=== PATIENT | female | born 1940 | race Caucasian/White ===

== ENCOUNTER 2017-12-11 11:14 | Outpatient (REF) | payer MEDICARE, OTHER, SELFPAY ==
[2017-12-11 11:52] LABS: Hemoglobin A1C 8.6 % (4.5-6.2)
== END 2017-12-11 11:15 ==
LOC: LBN 11:14
PROVIDERS: PCP Family Medicine; Visit Provider Family Medicine
DX: E11.40 Type 2 diabetes mellitus with diabetic neuropathy, unspecified (principal)
CPT/HCPCS: 83036

== ENCOUNTER 2018-02-19 15:57 | Outpatient (REF) | payer MEDICARE, OTHER, SELFPAY | END 2018-02-19 16:17 | LOC: LBN 15:57 | PROVIDERS: PCP Family Medicine; Visit Provider Family Medicine | DX: R19.7 Diarrhea, unspecified (principal) | CPT/HCPCS: 87324 ==

== ENCOUNTER 2018-07-14 08:40 | Outpatient (REF) | payer MEDICARE, OTHER, SELFPAY ==
[2018-07-14 11:06] LABS: Hemoglobin A1C 7.3 % (4.5-6.2)
== END 2018-07-14 09:00 ==
LOC: LBN 08:40
PROVIDERS: PCP Family Medicine; Visit Provider Family Medicine
DX: E11.40 Type 2 diabetes mellitus with diabetic neuropathy, unspecified (principal)
CPT/HCPCS: 83036

== ENCOUNTER 2019-01-18 10:30 | Outpatient (REF) | payer MEDICARE, OTHER, MEDICAID, SELFPAY ==
[2019-01-18 12:49] LABS: Hemoglobin A1C 7.3 % (4.5-6.2)
== END 2019-01-18 10:50 ==
LOC: LBN 10:30
PROVIDERS: Referring Provider Nurse Practitioner Gerontology; Visit Provider Family Medicine
DX: E11.9 Type 2 diabetes mellitus without complications (principal)
CPT/HCPCS: 83036

== ENCOUNTER 2019-06-13 10:58 | Outpatient (REF) | payer MEDICARE, OTHER, MEDICAID, SELFPAY ==
[2019-06-13 12:41] LABS: ALT 25 U/L (14-59); AST 17 U/L (15-37); Albumin 3.2 g/dL (3.4-5.0); Alkaline Phosphatase 65 U/L (46-116); BUN 16 mg/dL (7-18); Bilirubin, Total 0.3 mg/dL (0.2-1.0); CREATININE 0.66 mg/dL (0.55-1.02); Calcium 9.4 mg/dL (8.5-10.1); Chloride 105 mmol/L (98-107); Glucose 107 mg/dL (74-106); Potassium 4.7 mmol/L (3.5-5.1); Sodium 142 mmol/L (136-145); Total Protein 6.3 g/dL (6.4-8.2)
[2019-06-13 12:42] LABS: Absolute Basophil Count 0.05 k/cumm (0.0-0.2); Absolute Eosinophil Count 0.21 k/cumm (0.0-0.7); Absolute Lymphocyte Count 1.93 k/cumm (1.2-3.4); Absolute Monocyte Count 0.48 k/cumm (0.11-0.7); Absolute Neutrophil Count 3.58 k/cumm (1.2-6.7); Basophils % 0.8; Eosinophils % 3.4; HCT 39.1 % (36.0-46.0); HGB 12.3 g/dL (12.0-15.5); Lymphocytes % 30.9; Mean Corp. HGB Concentration 31.5 g/dL (32.0-36.0); Mean Corpuscular Hemoglobin 27.3 pg (27.0-33.0); Mean Corpuscular Volume 86.7 fL (80-95); Mean Platelet Volume 11.3 fL (8.0-11.0); Monocytes % 7.7; Neutrophils % 57.2; Platelet Count 374 x1000/uL (130-400); RBC 4.51 m/cumm (4.00-5.20); RBC Distribution Width 15.5 % (11.7-14.6); White Blood Cell Count 6.25 k/cumm (4.4-10.8)
[2019-06-13 13:47] LABS: Hemoglobin A1C 6.8 % (3.8-5.6)
== END 2019-06-13 11:18 ==
LOC: LBN 10:58
PROVIDERS: PCP Family Medicine; Visit Provider Family Medicine
DX: I10 Essential (primary) hypertension (principal); E11.40 Type 2 diabetes mellitus with diabetic neuropathy, unspecified; R53.83 Other fatigue
CPT/HCPCS: 80053; 83036; 85025

== ENCOUNTER 2020-02-22 14:17 | Outpatient (REF) | payer MEDICARE, OTHER, MEDICAID, SELFPAY ==
[2020-02-22 15:23] LABS: Abs Immature Grans 0.07 10^3/uL (0.0-0.06); Absolute Basophil Count 0.03 10^3/uL (0.0-0.2); Absolute Eosinophil Count 0.03 10^3/uL (0.0-0.7); Absolute Monocyte Count 1.17 10^3/uL (0.1-0.8); Basophils % 0.2; Eosinophils % 0.2; HCT 38.9 % (36.0-46.0); HGB 11.6 g/dL (11.2-15.7); Immature Grans % 0.5; Lymphocytes % 13.7; MCH 22.9 pg (27.0-33.0); MCHC 29.8 % (32.0-36.0); MCV 76.9 fL (80-95); MPV 11.8 fL (8.0-11.0); Monocytes % 8.8; Neutrophils % 76.6; Nucleated RBC 0 %; Platelet Count 457 10^3/uL (130-400); RBC 5.06 10^6/uL (3.93-5.22); RDW 15.5 % (11.7-14.6); RDW-SD 42.5 fL; WBC 13.25 10^3/uL (4.4-10.8)
[2020-02-22 15:34] LABS: Bilirubin Negative (Negative); Blood Trace-lysed (Negative); Clarity Cloudy (Clear); Glucose 500 mg/dL (Negative); Ketones 40 mg/dL (Negative); Leukocyte Esterase Trace (Negative); Nitrite Negative (Negative); Urobilinogen 0.2 EU/dL (Up TO 0.2); pH 8.5 (5-8)
[2020-02-22 15:43] LABS: C & S Indicated? C&S Done As Ordered
[2020-02-22 15:44] LABS: Absolute Lymphocyte Count 1.82 10^3/uL (1.2-3.4); Absolute Neutrophil Count 10.15 10^3/uL (1.2-6.7)
[2020-02-22 16:16] LABS: ALT 12 U/L (14-59); AST 8 U/L (15-37); Albumin 3.1 g/dL (3.4-5.0); Alkaline Phosphatase 92 U/L (46-116); Anion Gap 13.8 mmol/L (3-11); BUN 35 mg/dL (7-18); Bilirubin, Total 0.4 mg/dL (0.2-1.0); CO2 24.2 mmol/L (21.0-32.0); Calcium 10.2 mg/dL (8.5-10.1); Chloride 105 mmol/L (98-107); Estimated GFR 53.35 (mL/min/1.73m2); Glucose 406 mg/dL (74-106); Potassium 4.4 mmol/L (3.5-5.1); Sodium 143 mmol/L (136-145); TSH (W/Ref FT4) 0.93 uIU/mL (0.36-3.74); Total Protein 7.8 g/dL (6.4-8.2)
[2020-02-22 16:24] LABS: Bacteria Many HPF (Negative); WBC >50 HPF (0-5)
[2020-02-22 16:30] LABS: Hemoglobin A1C 12.1 % (<5.7)
== END 2020-02-22 14:37 ==
LOC: LBN 14:17
PROVIDERS: PCP Family Medicine; Visit Provider Nurse Practitioner Gerontology
DX: E11.9 Type 2 diabetes mellitus without complications (principal); F03.90 Unspecified dementia, unspecified severity, without behavioral disturbance, psychotic disturbance, mood disturbance, and anxiety; R53.83 Other fatigue; E66.01 Morbid (severe) obesity due to excess calories; E03.9 Hypothyroidism, unspecified; R68.89 Other general symptoms and signs; R10.9 Unspecified abdominal pain
CPT/HCPCS: 80053; 87077; 81003; 81015; 83036; 84443; 85025; 87086; 87186

== ENCOUNTER 2020-04-23 16:42 | Outpatient (REF) | payer MEDICARE, OTHER, MEDICAID, SELFPAY ==
[2020-04-23 17:28] LABS: Abs Immature Grans 0.02 10^3/uL (0.0-0.06); Absolute Basophil Count 0.06 10^3/uL (0.0-0.2); Absolute Eosinophil Count 0.21 10^3/uL (0.0-0.7); Absolute Neutrophil Count 5.41 10^3/uL (1.2-6.7); Basophils % 0.8; Eosinophils % 2.7; HCT 37.1 % (36.0-46.0); HGB 11.2 g/dL (11.2-15.7); Immature Grans % 0.3; Lymphocytes % 20.3; MCH 22.3 pg (27.0-33.0); MCHC 30.2 % (32.0-36.0); MCV 73.8 fL (80-95); MPV 11.2 fL (8.0-11.0); Monocytes % 7.6; Neutrophils % 68.3; Nucleated RBC 0 %; Platelet Count 478 10^3/uL (130-400); RBC 5.03 10^6/uL (3.93-5.22); RDW 17.2 % (11.7-14.6); RDW-SD 45.9 fL
[2020-04-23 17:40] LABS: Diff Comment RBC Morph Reviewed
[2020-04-23 17:41] LABS: Microcytosis 1+; Polychromasia Present
[2020-04-23 17:42] LABS: Poikilocytes 1+
[2020-04-23 17:50] LABS: ALT 13 U/L (14-59); AST 11 U/L (15-37); Albumin 3.4 g/dL (3.4-5.0); Alkaline Phosphatase 99 U/L (46-116); Anion Gap 6.2 mmol/L (3-11); BUN 17 mg/dL (7-18); Bilirubin, Total 0.4 mg/dL (0.2-1.0); CO2 28.8 mmol/L (21.0-32.0); CREATININE 0.78 mg/dL (0.55-1.02); Calcium 10.4 mg/dL (8.5-10.1); Chloride 98 mmol/L (98-107); Glucose 271 mg/dL (74-106); Sodium 133 mmol/L (136-145); TSH (W/Ref FT4) 1.32 uIU/mL (0.36-3.74); Total Protein 8.1 g/dL (6.4-8.2)
== END 2020-04-23 17:02 ==
LOC: LBN 16:42
PROVIDERS: PCP Family Medicine; Visit Provider Family Medicine
DX: E11.65 Type 2 diabetes mellitus with hyperglycemia (principal); F20.9 Schizophrenia, unspecified; G31.09 Other frontotemporal neurocognitive disorder; E66.01 Morbid (severe) obesity due to excess calories
CPT/HCPCS: 80053; 84443; 85025

== ENCOUNTER 2021-01-01 18:34 | Outpatient (REF) | payer MEDICARE, OTHER, MEDICAID, SELFPAY ==
[2021-01-01 16:10] LABS: HGB 11.3 g/dL (11.2-15.7); MCH 24.4 pg (27.0-33.0); MCHC 31.4 % (32.0-36.0); MCV 77.6 fL (80-95); MPV 12.5 fL (8.0-11.0); Nucleated RBC 0 %; RBC 4.64 10^6/uL (3.93-5.22); RDW 15.6 % (11.7-14.6); RDW-SD 43.3 fL
[2021-01-01 16:48] LABS: Absolute Lymphocyte Count 1.34 10^3/uL (1.2-3.4); Absolute Monocyte Count 1.72 10^3/uL (0.1-0.8); Absolute Neutrophil Count 16.04 10^3/uL (1.2-6.7); Bands % 14
[2021-01-01 16:49] LABS: Diff Comment Manual Differential; Microcytosis 1+
[2021-01-01 16:50] LABS: Platelet Count 274 10^3/uL (130-400)
[2021-01-01 17:18] LABS: Hemoglobin A1C 13.8 % (<5.7)
[2021-01-01 17:19] LABS: ALT 11 U/L (14-59); AST 8 U/L (15-37); Albumin 2.9 g/dL (3.4-5.0); Alkaline Phosphatase 94 U/L (46-116); Anion Gap 16.7 mmol/L (3-11); BUN 45 mg/dL (7-18); Bilirubin, Total 0.4 mg/dL (0.2-1.0); CO2 22.3 mmol/L (21.0-32.0); CREATININE 1.9 mg/dL (0.55-1.02); Calcium 9.8 mg/dL (8.5-10.1); Chloride 99 mmol/L (98-107); Estimated GFR 25.37 (mL/min/1.73m2); Potassium 4.5 mmol/L (3.5-5.1); Sodium 138 mmol/L (136-145)
[2021-01-01 19:29] LABS: Glucose 574 mg/dL (74-106)
== END 2021-01-01 18:35 | disposition home or self-care (01) ==
LOC: LBN 18:34
PROVIDERS: PCP Family Medicine; Visit Provider Internal Medicine
DX: E11.9 Type 2 diabetes mellitus without complications (principal); R53.83 Other fatigue; R11.2 Nausea with vomiting, unspecified; R68.89 Other general symptoms and signs
CPT/HCPCS: 80053; 83036; 85025

== ENCOUNTER 2021-01-01 20:42 | Inpatient (IN) | payer MEDICARE, OTHER, MEDICAID, SELFPAY ==
[2021-01-01] VITALS (23 sets, daily range): BP systolic 94–130; BP diastolic 54–77; PULSE 100–120; RESP 20–34; TEMP 36.6; O2SAT 93–97
[2021-01-01] MEDS: Normal Saline 1,000 ML 1000 ML IV (20:54)
[2021-01-01 21:06] LABS: BE (Venous) -6 mmol/L (-2-3); HCO3 (Venous) 19 mmol/L (23-28); HCT 36.6 % (36.0-46.0); HGB 11.5 g/dL (11.2-15.7); MCH 24.1 pg (27.0-33.0); MCHC 31.4 % (32.0-36.0); MCV 76.7 fL (80-95); MPV 12.1 fL (8.0-11.0); Nucleated RBC 0 %; O2 Sat (Venous) 97 %; Platelet Count 246 10^3/uL (130-400); RBC 4.77 10^6/uL (3.93-5.22); RDW 15.3 % (11.7-14.6); RDW-SD 42.5 fL; TCO2 (Venous) 17 mmol/L (24-29); WBC 22.54 10^3/uL (4.4-10.8); pCO2 (Venous) 28 mmHg (41-51); pH (Venous) 7.44 (7.31-7.41); pO2 (Venous) 105 mmHg
--- NOTE | 2021-01-01 21:06 | ED.GENADUL_ITS ---
Discharge Plan Disposition Patient Disposition: [facility] INPATIENT Condition: Stable Discharge Details Clinical Impression: BEN (acute kidney injury), Hyperglycemia, Urinary tract infection Primary Care Provider: Yumiko Israel ED Provider: Jaime Garcia Home Meds and New Rx's Prescriptions: No Action sennosides [Senna Laxative] 8.6 MG tablet 8.6 mg PO DAILY RF: 0 acetaminophen 325 MG tablet 650 mg PO TID RF: 0 olanzapine [Zyprexa] 10 MG tablet 5 mg PO BID RF: 0 cholecalciferol (vitamin D3) 1,000 UNITS tablet 1,000 unit PO DAILY RF: 0 metformin 850 MG tablet 850 mg PO BID@0800,1700 RF: 0 morphine 15 MG tablet 7.5 mg PO Q4H PRN PRNQty: 10 RF: 0 enoxaparin [Lovenox] 40 MG/0.4 ML syringe 40 mg Sub-Q Q24H Qty: 28 RF: 0 nitrofurantoin monohyd/m-cryst [Macrobid] 100 MG capsule 100 mg PO BID 5 Days RF: 0 polyethylene glycol 3350 [Miralax] 17 gram/dose Powder 17 g PO Q OTHER DAY RF: 0 Medical Decision Making 80 yo female who has a history of schizoprenia, t2dm, dementia, who comes in from the [facility] with elevated blood sugars. She apparently has intermittent episodes where she won't answer questions. They checked blood sugards today and it was over 500 so she was sent here. No reported fevers, cough, vomit, rashes. She arrives in no distress. She has her eyes open and is moving extremities on her own. She will intermittently follow commands, is able to move all extremities. no signs of trauma and perrl. She did tell me her name is rocio but then won't answer when I ask her year and other questions. She doesn't respond to me when I try and test her sensation. She has no abdomen tenderness, clear lungs. I suspect she may have a uti as she per report is not normally incontinent of urine, will check ua and also obtain vbg and cmp to evaluate for possible dka. labs show ua consistent with uti with wbc of 22 so suspect pyelo, glucose over 500 with anion gap of 18 but no acidosis on venous pH so not in dka and will hold on IV insulin drip, will give 10 units regular insulin IV. She does have ben as well. Given her lab abnormalities and likely pyelo feel she needs admission for IV antibiotics and IV fluids, will discuss with hospitalist Differential Diagnosis Differential Diagnosis: uti, dka, hyperglycemia Medical Records Medical records reviewed: Yes I reviewed the patient's medical records. Lab Data Lab results reviewed: Yes I reviewed the patient's lab results. HPI General Mode of arrival: EMS . Date/Time Provider Initiated Documentation: 01/01/21 20:55 . Limitations to Documentation: other (refuses to answer a lot of questions) . Information obtained by: RN/MD and EMS . History of Present Illness 80 year old F presents to the emergency department with the chief complaint of high blood sugars, described as moderate, Patient started experiencing this day(s) (1) and it has been constant. No relieving factors improve symptom(s), No exacerbating factors reported . Patient did receive the following treatments prior to arrival, none Related Data Home Medications Medication Instructions Recorded Confirmed acetaminophen 650 mg PO TID 03/17/17 01/01/21 cholecalciferol (vitamin D3) 1,000 unit PO DAILY 03/17/17 01/01/21 olanzapine [Zyprexa] 5 mg PO BID 03/17/17 01/01/21 sennosides [Senna Laxative] 8.6 mg PO DAILY 03/17/17 01/01/21 enoxaparin [Lovenox] 40 mg SUB-Q Q24H #28 syr 03/19/17 metformin 850 mg PO BID@0800,1700 tab 03/19/17 01/01/21 morphine 7.5 mg PO Q4H PRN PRN #10 tab 03/19/17 nitrofurantoin monohyd/m-cryst 100 mg PO BID 5 Days cap 03/19/17 [Macrobid] polyethylene glycol 3350 [Miralax] 17 g PO Q OTHER DAY 01/01/21 01/01/21 Previous Rx's Medication Instructions Recorded enoxaparin [Lovenox] 40 mg SUB-Q Q24H #28 syr 03/19/17 metformin 850 mg PO BID@0800,1700 tab 03/19/17 morphine 7.5 mg PO Q4H PRN PRN #10 tab 03/19/17 nitrofurantoin monohyd/m-cryst 100 mg PO BID 5 Days cap 03/19/17 [Macrobid] Allergies Allergy/AdvReac Type Severity Reaction Status Date / Time No Known Allergies Allergy Unverified 01/01/21 20:57 General Stated Complaint: GenMedical SHANTI: 3 Review of Systems Unobtainable due to mental condition PFSH Surgical History LEFT HIP FRACTURE (03/17/17) S/P NAIL AND FIXATION; DR. PARIS Social History Smoking/Tobacco Use Status: Former Tobacco Use Smoking risk assessment performed?: Yes Exam Const General: no acute distress Orientation: alert HENMT Head: normal to inspection Ears: external ears normal General nose exam: external nose normal Mouth: moist mucous membranes Eyes General: appearance normal, both eyes and all related structures Neck Neck: normal visual inspection Resp Effort & Inspection: normal respiratory effort and able to speak in complete sentences Cardio Rate: regular rate GI Palpation: soft and nontender Skin General skin exam: no rashes or lesions noted Neuro General: patient alert Extrem General: normal to inspection Psych Mental Status: mental status grossly normal Course Vital Signs Vital signs: Vital Signs Temperature 36.6 C 01/01/21 20:43 Pulse 118 H 01/01/21 20:43 Respiratory Rate 01/01/21 20:43 Blood Pressure 103/58 L 01/01/21 20:43 Pulse Oximetry 96 01/01/21 20:43 Temperature 36.6 C 01/01/21 20:43 Temperature Source Temporal Artery Scan 01/01/21 20:43 Pulse 118 H 01/01/21 20:43 Respiratory Rate 20 01/01/21 20:43 Respiratory Effort 01/01/21 20:55 Blood Pressure 103/58 L 01/01/21 20:43 Blood Pressure Position Sitting 01/01/21 20:43 Pulse Oximetry 96 01/01/21 20:43 Oxygen Delivery Method Room Air 01/01/21 20:43 Oxygen Flow Rate 0 01/01/21 20:43 Pain Level 0 01/01/21 20:43
[2021-01-01 21:18] LABS: Bilirubin Negative (Negative); Blood Negative (Negative); Clarity Turbid (Clear); Glucose 500 mg/dL (Negative); Ketones 15 mg/dL (Negative); Leukocyte Esterase Negative (Negative); Nitrite Negative (Negative); Urobilinogen 0.2 EU/dL (Up TO 0.2)
[2021-01-01 21:22] LABS: ALT 11 U/L (14-59); AST 9 U/L (15-37); Albumin 2.6 g/dL (3.4-5.0); Alkaline Phosphatase 102 U/L (46-116); Anion Gap 18.3 mmol/L (3-11); BUN 55 mg/dL (7-18); Bilirubin, Total 0.5 mg/dL (0.2-1.0); CO2 19.7 mmol/L (21.0-32.0); CREATININE 1.9 mg/dL (0.55-1.02); Calcium 9.7 mg/dL (8.5-10.1); Chloride 97 mmol/L (98-107); Estimated GFR 25.37 (mL/min/1.73m2); Magnesium 2.1 mg/dL (1.8-2.4); Potassium 4.3 mmol/L (3.5-5.1); Sodium 135 mmol/L (136-145); Total Protein 7.6 g/dL (6.4-8.2)
[2021-01-01 21:24] LABS: Glucose 554 mg/dL (74-106)
[2021-01-01 21:26] LABS: WBC >50 HPF (0-5)
[2021-01-01 21:27] LABS: Bacteria Packed HPF (Negative); C & S Indicated? Yes
[2021-01-01 21:38] LABS: Absolute Neutrophil Count 20.29 10^3/uL (1.2-6.7); Bands % 19
[2021-01-01] MEDS: cefTRIAXone 2 GM/50 ML BAG IVPB (21:38)
[2021-01-01 21:39] LABS: Absolute Lymphocyte Count 0.45 10^3/uL (1.2-3.4); Diff Comment Manual Differential; Microcytosis 1+
[2021-01-01] MEDS: Insulin REGULAR-Human 100 UNITS/ML UNIT 10 UNITS IV (22:01)
--- NOTE | 2021-01-01 22:16 | W.PM.HP.N ---
Date of service: 01/01/21 Time of Service: 22:16 Assessment and Plan Assessment and plan (1) Sepsis syndrome: Start date: 01/01/21 Status: Acute Assessment and plan: This is an 80-year-old lady who resides at a local retirement who had a sudden change in mental status reported to the ED and being found to have sepsis syndrome with tachycardia, change in mental status, no fever but elevated WBC and positive urine with metabolic acidosis and dehydration. She was initiated on IV hydration with IV antibiotics for the source of infection. She has slight improvement in behavior. Her initial evaluation. (2) Urinary tract infection: Start date: 01/01/21 Status: Acute Assessment and plan: Patient was initiated on IV Rocephin 2 g with continuation of 1 g IV every 24 hours. Renal ultrasound was ordered for the morning. This reassured no obstruction and assess for possible pyelonephritis. Qualifiers: Hematuria presence: without hematuria Urinary tract infection type: site unspecified Qualified Code(s): N39.0 - Urinary tract infection, site not specified (3) BEN (acute kidney injury): Start date: 01/01/21 Status: Acute Assessment and plan: IV hydration and follow-up renal ultrasound to rule out obstruction. (4) Acute hyperglycemia: Start date: 01/01/21 Status: Acute Assessment and plan: Patient has uncontrolled diabetes by review her hemoglobin A1c over the last couple of years. She is not on a diet but does have medical therapy. She will not be started on insulin infusion but frequent glucometers with sliding scale Humalog and follow-up lab adjusting IV fluids to metabolic acidosis associated with hyperglycemia. She has a picture of HHNC. (5) Type II diabetes mellitus with complication, uncontrolled: Status: Chronic Assessment and plan: Patient diabetes poorly controlled chronically by choice letting the patient needed she wishes. Patient be reevaluated to keep her less medically labile and less likely to decompensate such as today. (6) Schizophrenia: Status: Chronic Assessment and plan: Patient has been on behavior as baseline and this will make it difficult to assess and treat. His hospitalization. We will continue morphine IV which she is taking orally as an outpatient and Ativan as needed for behavior control to allow treatment. She is a DNR/DNI. Qualifiers: Schizophrenia type: disorganized schizophrenia Qualified Code(s): F20.1 - Disorganized schizophrenia History of Present Illness History of Present Illness Chief Complaint: Altered mental status Narrative: This is an 80-year-old female patient from the [facility] who has schizophrenia and has been stable with behavior until over the last 48 hours where she had a sudden decline in mental status became withdrawn. She had no measured fever in the ED but did have an elevated WBC and positive urine. She was tachycardic and had severe hyperglycemia with uncontrolled diabetes chronically. Patient is noncompliant with diet and family has been okay with this but her hemoglobin A1c has been above 10 for the last 2 measurements over the years. The last measurement was this year. The patient appeared dry with decreased intake and when calling the retirement this did happen over 24 hours. Patient was treated with IV fluid resuscitation and initiation of insulin IV. She does not appear to be in DKA but more HHNC. The patient was not able to offer further history. Review of Systems Narrative: 13 point review of systems otherwise unobtainable mental status. [facility] Surgical History LEFT HIP FRACTURE (03/17/17) S/P NAIL AND FIXATION; DR. PARIS Social History Smoking/Tobacco Use Status: Former Tobacco Use Smoking risk assessment performed?: Yes Meds Allergies and Home Medications Allergies Allergy/AdvReac Type Severity Reaction Status Date / Time No Known Allergies Allergy Unverified 01/01/21 20:57 Home Medications Medication Instructions Recorded Confirmed Type acetaminophen 650 mg PO TID 03/17/17 01/01/21 History cholecalciferol (vitamin D3) 1,000 unit PO DAILY 03/17/17 01/01/21 History olanzapine [Zyprexa] 5 mg PO BID 03/17/17 01/01/21 History sennosides [Senna Laxative] 8.6 mg PO DAILY 03/17/17 01/01/21 History enoxaparin [Lovenox] 40 mg SUB-Q Q24H #28 syr 03/19/17 Rx metformin 850 mg PO BID@0800,1700 tab 03/19/17 01/01/21 Rx morphine 7.5 mg PO Q4H PRN PRN #10 tab 03/19/17 Rx nitrofurantoin monohyd/m-cryst 100 mg PO BID 5 Days cap 03/19/17 Rx [Macrobid] polyethylene glycol 3350 [Miralax] 17 g PO Q OTHER DAY 01/01/21 01/01/21 History Exam Narrative Exam Narrative: General: Patient appears older than stated age, pale lying in bed but opening eyes when approached without meaningful conversation. She did state that she was in the hospital and appeared to recognize that I am physician. She is in no acute distress. HEENT: Normocephalic, coarsened facial features, eyes with pupils equal and react to light symmetrically, extraocular movement intact and sclera anicteric. Oropharynx with dry mucosa. Neck: Supple without JVD. Back: Kyphotic with patient unable to sit up in bed. Lungs: Fair aeration with no focalized rales or rhonchi with poor inspiratory. Heart: Regular rate and rhythm with no murmurs or gallops appreciated. Patient was tachycardic in the ED prior to initiation of IV fluids. Breast: Exam deferred. Abdomen: Scaphoid contour, soft nontender to palpation with no palpable hepatosplenomegaly. Bowel sounds positive in all quadrants. Genitalia/rectal: Exam deferred. Extremities: Without clubbing, cyanosis or pitting edema. Peripheral pulses are decreased but intact. Joints do have arthritic changes with decreased range of motion especially full extension with patient appearing to be deconditioned. Skin: Pale, warm and dry. Neuro: Cranial nerves II through XII appear to be grossly intact, no focalizing motor deficits. Psych: Flattened affect with agitated mood appears to be depressed. Unable to assess abnormal thought processes with patient nonverbal. Remote and recent memory are not intact or testable with patient changing mental status. Results Labs Result diagrams: 01/01/21 20:52 01/02/21 01:30 Labs: Laboratory Results - last 24 hr 01/01/21 01/01/21 01/01/21 20:52 20:52 20:52 WBC 22.54 H RBC 4.77 Hgb 11.5 Hct 36.6 MCV 76.7 L MCH 24.1 L MCHC 31.4 L RDW 15.3 H Plt Count 246 MPV 12.1 H Immature Gran % See Differential Neutrophils % 71.0 Band Neutrophils % 19 Lymphocytes % 2.0 Monocytes % 8.0 Eosinophils % 0.0 Basophils % 0.0 Nucleated RBC % 0 Absolute Neutrophils 20.29 H Absolute Lymphocytes 0.45 L Absolute Monocytes 1.80 H Absolute Eosinophils 0.00 Absolute Basophils 0.00 RBC Morphology See Below Microcytosis 1+ VBG pH 7.44 H VBG pCO2 28 L VBG pO2 105 VBG HCO3 19 L VBG Total CO2 17 L VBG O2 Saturation 97 VBG Base Excess -6 L Sodium 135 L Potassium 4.3 Chloride 97 L Carbon Dioxide 19.7 L Anion Gap 18.3 H BUN 55 H D Creatinine 1.9 H Estimated GFR/1.73 m2 25.37 Glucose 554 H* Calcium 9.7 Magnesium 2.1 Total Bilirubin 0.5 AST 9 L ALT 11 L Alkaline Phosphatase 102 Total Protein 7.6 Albumin 2.6 L Urine Color Urine Clarity Urine pH Ur Specific [place] Urine Protein Urine Ketones Urine Blood Urine Nitrite Urine Bilirubin Urine Urobilinogen Ur Leukocyte Esterase Urine RBC Urine WBC Ur Epithelial Cells Urine Crystals Urine Bacteria Urine Mucus Ur Culture Indicated? Urine Glucose 01/01/21 21:07 WBC RBC Hgb Hct MCV MCH MCHC RDW Plt Count MPV Immature Gran % Neutrophils % Band Neutrophils % Lymphocytes % Monocytes % Eosinophils % Basophils % Nucleated RBC % Absolute Neutrophils Absolute Lymphocytes Absolute Monocytes Absolute Eosinophils Absolute Basophils RBC Morphology Microcytosis VBG pH VBG pCO2 VBG pO2 VBG HCO3 VBG Total CO2 VBG O2 Saturation VBG Base Excess Sodium Potassium Chloride Carbon Dioxide Anion Gap BUN Creatinine Estimated GFR/1.73 m2 Glucose Calcium Magnesium Total Bilirubin AST ALT Alkaline Phosphatase Total Protein Albumin Urine Color Yellow Urine Clarity Turbid Urine pH 8.0 Ur Specific [place] 1.020 Urine Protein 100 H Urine Ketones 15 H Urine Blood Negative Urine Nitrite Negative Urine Bilirubin Negative Urine Urobilinogen 0.2 Ur Leukocyte Esterase Negative Urine RBC Not Applicable Urine WBC >50 H Ur Epithelial Cells Not Applicable Urine Crystals Not Applicable Urine Bacteria Packed Urine Mucus Not Applicable Ur Culture Indicated? Yes Urine Glucose 500 H Last Vital Signs Temp 36.6 C 01/01/21 20:43 Pulse 118 H 01/01/21 20:43 Resp 20 01/01/21 20:43 BP 103/58 L 01/01/21 20:43 Pulse Ox 96 01/01/21 20:43
[2021-01-01 22:30] LABS: Source Nasal/Nares
[2021-01-01] MEDS: Normal Saline 1,000 ML 150 ML IV (23:32)
[2021-01-02] VITALS (7 sets, daily range): BP systolic 109–135; BP diastolic 63–90; PULSE 84–110; RESP 16–21; TEMP 36.3–38.7; O2SAT 92–97
[2021-01-02] MEDS: Normal Saline Flush 10 ML SYR IVP ×3 (01:18→23:50)
[2021-01-02] MEDS: MORPHine 2 MG/ML SYR IVP ×4 (01:18→23:49)
[2021-01-02 01:46] LABS: Anion Gap 14.4 mmol/L (3-11); CO2 18.6 mmol/L (21.0-32.0); Calcium 7.1 mg/dL (8.5-10.1); Chloride 111 mmol/L (98-107); Estimated GFR 39.31 (mL/min/1.73m2); Sodium 144 mmol/L (136-145)
[2021-01-02 01:49] LABS: BUN 43 mg/dL (7-18); CREATININE 1.3 mg/dL (0.55-1.02); Glucose 349 mg/dL (74-106); Potassium 3.2 mmol/L (3.5-5.1)
[2021-01-02 02:03] LABS: COVID-19 PCR Negative (Negative)
[2021-01-02] MEDS: POTASSIUM CHLORIDE/0.9% NACL 1,000 ML 150 MEQ IV ×3 (06:30→21:45)
[2021-01-02 09:25] LABS: HCT 33.3 % (36.0-46.0); HGB 10.2 g/dL (11.2-15.7); MCH 24.2 pg (27.0-33.0); MCHC 30.6 % (32.0-36.0); MCV 78.9 fL (80-95); MPV 12.9 fL (8.0-11.0); Nucleated RBC 0 %; Platelet Count 177 10^3/uL (130-400); RBC 4.22 10^6/uL (3.93-5.22); RDW 15.7 % (11.7-14.6); RDW-SD 44.6 fL; WBC 21.01 10^3/uL (4.4-10.8)
[2021-01-02 09:42] LABS: Anion Gap 13.8 mmol/L (3-11); BUN 53 mg/dL (7-18); CO2 20.2 mmol/L (21.0-32.0); CREATININE 1.6 mg/dL (0.55-1.02); Calcium 8.8 mg/dL (8.5-10.1); Chloride 108 mmol/L (98-107); Estimated GFR 30.94 (mL/min/1.73m2); Glucose 447 mg/dL (74-106); Potassium 4.9 mmol/L (3.5-5.1); Sodium 142 mmol/L (136-145)
[2021-01-02] MEDS: Insulin Aspart 300 UNITS/3 ML PEN SC ×3 (09:44→17:43)
[2021-01-02 09:50] LABS: Absolute Lymphocyte Count 0.84 10^3/uL (1.2-3.4); Absolute Monocyte Count 0.84 10^3/uL (0.1-0.8); Absolute Neutrophil Count 19.33 10^3/uL (1.2-6.7); Anisocytosis 1+; Bands % 13; Diff Comment Manual Differential; Hypochromasia 1+; Microcytosis 1+
--- NOTE | 2021-01-02 15:08 | W.PM.PROGNOT ---
Date of Service Date of service: 01/02/21 Time of Service: 15:08 Assessment and Plan Assessment and plan (1) Sepsis syndrome: Status: Acute Assessment and plan: thought d/t UTI. cultures pending. vitals stable. temp this am of 38.7, continue ceftriaxone at 2 gm daily (2) Urinary tract infection: Status: Acute Assessment and plan: Rocephin 2 g day 2. Renal ultrasound was ordered for the morning but patient refused, will revisit tomorrow.. to evaluate for obstruction and assess for possible pyelonephritis. Qualifiers: Hematuria presence: without hematuria Urinary tract infection type: site unspecified Qualified Code(s): N39.0 - Urinary tract infection, site not specified (3) BEN (acute kidney injury): Status: Acute Assessment and plan: IV hydration and follow-up renal ultrasound to rule out obstruction. continue IV hydration, avoid nephrotoxic drugs. renal dosing (4) Type II diabetes mellitus with complication, uncontrolled: Status: Chronic Assessment and plan: Patient diabetes poorly controlled chronically by choice letting the patient eat as she wishes. diabetic diet, check blood sugars as she allows. A1C 13.8. (5) Schizophrenia: Status: Chronic Assessment and plan: Patient has been on behavior as baseline and this will make it difficult to assess and treat. will likely be worsened by hospitalization. We will continue morphine IV which she is taking orally as an outpatient and Ativan as needed for behavior control to allow treatment. She is a DNR/DNI. palliative care consult placed for goals of care. discussed with DR Znedejas. Qualifiers: Schizophrenia type: disorganized schizophrenia Qualified Code(s): F20.1 - Disorganized schizophrenia Subjective Subjective Interval history since last seen: refusing care, blood sugar checks, still with fever. has been NPO and refused meds Exam Const General: no acute distress Orientation: alert HENMT Head: normal to inspection Ears: external ears normal General nose exam: external nose normal Mouth: moist mucous membranes Eyes General: appearance normal, both eyes and all related structures Neck Neck: normal visual inspection Resp Effort & Inspection: normal respiratory effort and able to speak in complete sentences Cardio Rate: regular rate GI Palpation: soft and nontender Skin General skin exam: no rashes or lesions noted Neuro General: patient alert Extrem General: normal to inspection Objective Last Vital Signs Temp 37.6 C H 01/02/21 12:08 Pulse 95 H 01/02/21 12:08 Resp 20 01/02/21 12:08 BP 118/64 01/02/21 12:08 Pulse Ox 96 01/02/21 12:08 Laboratory Results - last 24 hr 01/01/21 01/01/21 01/01/21 20:52 20:52 20:52 WBC 22.54 H RBC 4.77 Hgb 11.5 Hct 36.6 MCV 76.7 L MCH 24.1 L MCHC 31.4 L RDW 15.3 H Plt Count 246 MPV 12.1 H Immature Gran % See Differential Neutrophils % 71.0 Band Neutrophils % 19 Lymphocytes % 2.0 Monocytes % 8.0 Eosinophils % 0.0 Basophils % 0.0 Nucleated RBC % 0 Absolute Neutrophils 20.29 H Absolute Lymphocytes 0.45 L Absolute Monocytes 1.80 H Absolute Eosinophils 0.00 Absolute Basophils 0.00 RBC Morphology See Below Hypochromasia Anisocytosis Microcytosis 1+ VBG pH 7.44 H VBG pCO2 28 L VBG pO2 105 VBG HCO3 19 L VBG Total CO2 17 L VBG O2 Saturation 97 VBG Base Excess -6 L Sodium 135 L Potassium 4.3 Chloride 97 L Carbon Dioxide 19.7 L Anion Gap 18.3 H BUN 55 H D Creatinine 1.9 H Estimated GFR/1.73 m2 25.37 Glucose 554 H* Calcium 9.7 Magnesium 2.1 Total Bilirubin 0.5 AST 9 L ALT 11 L Alkaline Phosphatase 102 Total Protein 7.6 Albumin 2.6 L Urine Color Urine Clarity Urine pH Ur Specific [place] Urine Protein Urine Ketones Urine Blood Urine Nitrite Urine Bilirubin Urine Urobilinogen Ur Leukocyte Esterase Urine RBC Urine WBC Ur Epithelial Cells Urine Crystals Urine Bacteria Urine Mucus Ur Culture Indicated? Urine Glucose COVID-19 Source SARS-CoV-2 (PCR) 01/01/21 01/01/21 01/02/21 21:07 22:12 01:30 WBC RBC Hgb Hct MCV MCH MCHC RDW Plt Count MPV Immature Gran % Neutrophils % Band Neutrophils % Lymphocytes % Monocytes % Eosinophils % Basophils % Nucleated RBC % Absolute Neutrophils Absolute Lymphocytes Absolute Monocytes Absolute Eosinophils Absolute Basophils RBC Morphology Hypochromasia Anisocytosis Microcytosis VBG pH VBG pCO2 VBG pO2 VBG HCO3 VBG Total CO2 VBG O2 Saturation VBG Base Excess Sodium 144 Potassium 3.2 L D Chloride 111 H Carbon Dioxide 18.6 L Anion Gap 14.4 H BUN 43 H D Creatinine 1.3 H D Estimated GFR/1.73 m2 39.31 Glucose 349 H D Calcium 7.1 L Magnesium Total Bilirubin AST ALT Alkaline Phosphatase Total Protein Albumin Urine Color Yellow Urine Clarity Turbid Urine pH 8.0 Ur Specific [place] 1.020 Urine Protein 100 H Urine Ketones 15 H Urine Blood Negative Urine Nitrite Negative Urine Bilirubin Negative Urine Urobilinogen 0.2 Ur Leukocyte Esterase Negative Urine RBC Not Applicable Urine WBC >50 H Ur Epithelial Cells Not Applicable Urine Crystals Not Applicable Urine Bacteria Packed Urine Mucus Not Applicable Ur Culture Indicated? Yes Urine Glucose 500 H COVID-19 Source Nasal/Nares SARS-CoV-2 (PCR) Negative 01/02/21 01/02/21 09:00 09:00 WBC 21.01 H RBC 4.22 Hgb 10.2 L Hct 33.3 L MCV 78.9 L MCH 24.2 L MCHC 30.6 L RDW 15.7 H Plt Count 177 MPV 12.9 H Immature Gran % 0.0 Neutrophils % 79.0 Band Neutrophils % 13 Lymphocytes % 4.0 Monocytes % 4.0 Eosinophils % 0.0 Basophils % 0.0 Nucleated RBC % 0 Absolute Neutrophils 19.33 H Absolute Lymphocytes 0.84 L Absolute Monocytes 0.84 H Absolute Eosinophils 0.00 Absolute Basophils 0.00 RBC Morphology See Below Hypochromasia 1+ Anisocytosis 1+ Microcytosis 1+ VBG pH VBG pCO2 VBG pO2 VBG HCO3 VBG Total CO2 VBG O2 Saturation VBG Base Excess Sodium 142 Potassium 4.9 D Chloride 108 H Carbon Dioxide 20.2 L Anion Gap 13.8 H BUN 53 H D Creatinine 1.6 H Estimated GFR/1.73 m2 30.94 Glucose 447 H Calcium 8.8 Magnesium Total Bilirubin AST ALT Alkaline Phosphatase Total Protein Albumin Urine Color Urine Clarity Urine pH Ur Specific [place] Urine Protein Urine Ketones Urine Blood Urine Nitrite Urine Bilirubin Urine Urobilinogen Ur Leukocyte Esterase Urine RBC Urine WBC Ur Epithelial Cells Urine Crystals Urine Bacteria Urine Mucus Ur Culture Indicated? Urine Glucose COVID-19 Source SARS-CoV-2 (PCR)
[2021-01-02 17:03] LABS: Magnesium 2.2 mg/dL (1.8-2.4)
[2021-01-02] MEDS: ACETAMINOPHEN 1,000 MG/100 ML BTL 400 MG IVPB (17:48)
--- NOTE | 2021-01-02 18:15 | PDOC.CMIN ---
- If Service Date Differs Date of service: 01/02/21 Time of Service: 18:28 Care Management Initial Assess REASON FOR HOSPITALIZATION:: Sepsis syndrome, UTI PAST MEDICAL HISTORY/PAST SURGICAL HISTORY:: DM II with complications, dementia, schizophrenia, UTI, hyperglycemia, left hip fracture PREVIOUS FUNCTIONAL STATUS/SOCIAL/FAMILY SUPPORTS:: Resides at the [facility]. Reported previously living in [place] with her . Oriented only to self. CURRENT FUNCTIONAL STATUS:: This is an 80-year-old female patient from the [facility] who has schizophrenia and has been stable with behavior until over the last 48 hours where she had a sudden decline in mental status became withdrawn. She has slept throughout most of the day, per RN. ADVANCE DIRECTIVES:: DPOA and guardian, brother Uri Has patient been provided with info about the portal/API?: No Did the patient sign up for the portal?: No CODE STATUS:: DNR/DNI INSURANCE COVERAGE / FINANCIAL ISSUES:: Medicare. [employer] CURRENT HOME/COMMUNITY SERVICES/EQUIPMENT:: Resides at [facility] PHYSICIAN:: Yumiko Israel POTENTIAL DISCHARGE NEEDS:: Coordinated return to the [facility]. PATIENT/FAMILY EDUCATION NEEDS:: Review of discharge instructions. ANTICIPATED BARRIERS TO DISCHARGE:: None identified. TRANSPORTATION:: EMS due to dementia. PLAN:: Paulette will return to the [facility] when ready per MD. Anticipate she will transport via EMS due to dementia. CM continues to follow.
[2021-01-02] MEDS: cefTRIAXone 2 GM/50 ML BAG IVPB (23:49)
[2021-01-03] MEDS: POTASSIUM CHLORIDE/0.9% NACL 1,000 ML 150 MEQ IV ×2 (05:27→13:09)
[2021-01-03 08:05] VITALS: BP 135/71; PULSE 86; RESP 18; TEMP 36.3; O2SAT 96
[2021-01-03] MEDS: MORPHine 2 MG/ML SYR IVP ×3 (08:10→18:12)
[2021-01-03] MEDS: Insulin Aspart 300 UNITS/3 ML PEN SC ×2 (08:15→18:13)
--- NOTE | 2021-01-03 09:22 | CMPROGNOTE_ITS ---
- If Service Date Differs Date of service: 01/03/21 Time of Service: 09:22 Care Management Progress Note S/O: Paulette continues to refuse interventions and advocate for leaving the hospital. Attempts will continue today, anticipate return to [facility] tomorrow, 01/04/21, CM faxed updated clinicals and notified [place] [facility] [employer] at the [facility] of anticipated discharge. CM continues to follow. A: 80 year old female admitted to [facility] 01/01/21 for Sepsis Syndrome, UTI P: Anticipate return to [facility] tomorrow, 01/04/21, CM faxed updated clinicals and notified [place] [facility] [employer] at the [facility] of anticipated discharge. CM will coordinated EMS for transport on discharge. CM continues to follow.
[2021-01-03] MEDS: OLANZapine 10 MG TAB 5 MG PO (11:39)
--- NOTE | 2021-01-03 13:49 | PGE_ITS ---
Date of Service Date of service: 01/03/21 Time of Service: 13:49 Assessment and Plan Assessment and plan (1) Sepsis syndrome: Status: Acute Assessment and plan: thought d/t UTI. cultures pending. vitals stable. no further fevers continue ceftriaxone at 2 gm daily day 3 (2) Urinary tract infection: Status: Acute Assessment and plan: Rocephin 2 g day 3. Renal ultrasound was ordered for the morning but patient refused, will revisit tomorrow.. to evaluate for obstr uction and assess for possible pyelonephritis. Qualifiers: Urinary tract infection type: site unspecified Hematuria presence: without hematuria Qualified Code(s): N39.0 - Urinary tract infection, site not specified (3) BEN (acute kidney injury): Status: Acute Assessment and plan: IV hydration and follow-up renal ultrasound to rule out obstruction. continue IV hydration, avoid nephrotoxic drugs. renal dosing (4) Type II diabetes mellitus with complication, uncontrolled: Status: Chronic Assessment and plan: Patient diabetes poorly controlled chronically by choice letting the patient eat as she wishes. diabetic diet, check blood sugars as she allows. A1C 13.8. will restart bid lantus (5) Schizophrenia: Status: Chronic Assessment and plan: Patient has been on behavior as baseline and this will make it difficult to assess and treat. will likely be worsened by hospitalization. We will continue morphine IV which she is taking orally as an outpatient and Ativan as needed for behavior control to allow treatment. She is a DNR/DNI. palliative care consult placed for goals of care. discussed with DR Zendejas. 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 allowing blood sugar checks and she has been elevated Exam Const General: no acute distress Orientation: alert HENMT Head: normal to inspection Ears: external ears normal General nose exam: external nose normal Mouth: moist mucous membranes Eyes General: appearance normal, both eyes and all related structures Neck Neck: normal visual inspection Resp Effort & Inspection: normal respiratory effort and able to speak in complete sentences Cardio Rate: regular rate GI Palpation: soft and nontender Skin General skin exam: no rashes or lesions noted Neuro General: patient alert Extrem General: normal to inspection Objective Last Vital Signs Temp 36.3 C L 09/23/21 08:05 Pulse 86 01/03/21 08:05 Resp 18 01/03/21 08:05 BP 135/71 01/03/21 08:05 Pulse Ox 96 01/03/21 08:05 Laboratory Results - last 24 hr 01/02/21 09:00 Magnesium 2.2
[2021-01-03] MEDS: Normal Saline 1,000 ML 50 ML IV (14:19)
[2021-01-03 15:30] VITALS: BP 139/79; PULSE 93; RESP 19; TEMP 36.5; O2SAT 99
--- NOTE | 2021-01-03 15:54 | CHAPLAIN ---
Paulette was in bed when I visited. After I introduced myself, she began telling me about a boyfriend, how nice he was, how he would buy her soda, and milk, and come around and visit. She was not interested in talking about any thing else but repeatedly talked about the nice boyfriend who brought her soda and milk.
--- NOTE | 2021-01-04 11:31 | W.PALLCONSUL ---
Date of service: 01/04/21 Time of Service: 11:20 History of Present Illness Narrative: Paulette Angela is an 80-year-old female with a past medical history significant for NIDDM2, HTN, schizophrenia, dementia, who was admitted to [facility] hospitalist service on 01/01/21 with sepsis due to proteus UTI. She was treated with empiric ceftriaxone. Throughout her hospitalization she consistently refused care. Palliative care was consulted to discuss goals of care. Paulette was seen in her room. She was unable to engage in conversation, she continued to repeat phrases about God and the [employer]ism pent[employer]. She has a COLST form on file which states that she is a DNR/DNI. Her brother Navi Grewal is her Guardian. There was discussion about talking to Navi about considering making her a Do not transfer as this appears to be in line with her goals of care at this time as evidenced by her consistently refusing care. I attempted to call Navi to discuss this with him and to review her goals and wishes but he was not available. I left a message for him to call the Palliative office or discuss further with the [facility] staff. She has been discharged back to the [facility] where she resides. Assessment and Plan Assessment and plan (1) Schizophrenia: Status: Chronic Qualifiers: Schizophrenia type: disorganized schizophrenia Qualified Code(s): F20.1 - Disorganized schizophrenia (2) Diabetes mellitus type II, controlled, with no complications: Status: Acute (3) Dementia: Status: Chronic (4) Type II diabetes mellitus with complication, uncontrolled: Status: Chronic (5) Urinary tract infection: Status: Acute Qualifiers: Urinary tract infection type: site unspecified Hematuria presence: without hematuria Qualified Code(s): N39.0 - Urinary tract infection, site not specified (6) BEN (acute kidney injury): Status: Acute (7) Sepsis syndrome: Status: Acute (8) Palliative care patient: Status: Acute Assessment and plan: Paulette Angela is an 80-year-old female with a past medical history significant for NIDDM2, HTN, schizophrenia, dementia, who was admitted to [facility] hospitalist service on 01/01/21 with sepsis due to proteus UTI. She was treated with empiric ceftriaxone. Throughout her hospitalization she consistently refused care. Palliative care was consulted to discuss goals of care. She has a COLST stating that she is a DNR/DNI. Her brother, Navi Grewal is her guardian. I called Navi to discuss her goals. He was unavailable. I left a message. Given that she consistently refused care while hospitalized, I question whether she should be transferred in the future or if she should stay at the [facility] to receive her care, possibly comfort care if indicated. Message left for Navi to discuss with the [facility] staff or call palliative to discuss further. Follow-up as needed. Review of Systems Unobtainable due to mental status [facility] Medical History (Updated 01/04/21 @ 16:15 by Belia Byrne NP) Dementia Diabetes mellitus type II, controlled, with no complications Palliative care patient Schizophrenia Surgical History LEFT HIP FRACTURE (03/17/17) S/P NAIL AND FIXATION; DR. PARIS Social History Smoking/Tobacco Use Status: Former Tobacco Use Smoking risk assessment performed?: Yes Exam Narrative Exam Narrative: General: Elderly female, laying in bed, repeating phrases about God in the [employer]ism [employer]ism. Unable to answer questions appropriately. HEENT: Normocephalic, atraumatic, EOMI, mucous membranes dry. Neck: Supple, no JVD. Cardiovascular: Heart sounds regular, nontachycardic. Respiratory: Respirations appear even and unlabored, lung sounds are clear on limited anterior and lateral exam. GI: +BS, abdomen is soft, nontender on palpation, nondistended. Extremities: Moves all 4 extremities freely. No edema. Results Last Vital Signs Temp 36.5 C 01/03/21 15:30 Pulse 93 H 01/03/21 15:30 Resp 19 01/03/21 15:30 BP 139/79 01/03/21 15:30 Pulse Ox 99 01/03/21 15:30 Labs Result diagrams: 01/02/21 09:00 01/02/21 09:00 Labs: Laboratory Results - last 24 hr 01/03/21 01/03/21 05:35 05:35 WBC Cancelled RBC Cancelled Hgb Cancelled Hct Cancelled MCV Cancelled MCH Cancelled MCHC Cancelled RDW Cancelled Plt Count Cancelled MPV Cancelled Immature Gran % Cancelled Neutrophils % Cancelled Band Neutrophils % Cancelled Lymphocytes % Cancelled Atypical Lymphs % Cancelled Monocytes % Cancelled Eosinophils % Cancelled Basophils % Cancelled Metamyelocytes % Cancelled Myelocytes % Cancelled Promyelocytes % Cancelled Other Cells % Cancelled Nucleated RBC % Cancelled Absolute Neutrophils Cancelled Absolute Lymphocytes Cancelled Absolute Monocytes Cancelled Absolute Eosinophils Cancelled Absolute Basophils Cancelled RBC Morphology Cancelled Polychromasia Cancelled Hypochromasia Cancelled Poikilocytosis Cancelled Basophilic Stippling Cancelled Anisocytosis Cancelled Microcytosis Cancelled Macrocytosis Cancelled Spherocytes Cancelled Tear Drop Cells Cancelled Ovalocytes Cancelled Stomatocytes Cancelled [place] Bodies Cancelled [place] Cells/Echinocytes Cancelled Acanthocytes (Spur) Cancelled Schistocytes Cancelled Sodium Cancelled Potassium Cancelled Chloride Cancelled Carbon Dioxide Cancelled Anion Gap Cancelled BUN Cancelled Creatinine Cancelled Estimated GFR/1.73 m2 Cancelled Glucose Cancelled Calcium Cancelled
--- NOTE | 2021-01-04 11:37 | W.NUTRFU ---
Date of service: 01/04/21 Time of Service: 11:37 Nutritional Follow up NOTE: Pt. refusing PO at this time. Will adjust nutrition care plan should her clinical situation change. Time Spent in Nutritional Counseling and Treatment: 0
[2021-01-04 11:38] VITALS: BP 156/88; PULSE 85; RESP 20; TEMP 36.7; O2SAT 97
--- NOTE | 2021-01-04 12:11 | DSE_ITS ---
Date of service: 01/04/21 Time of Service: 12:11 DS: Diagnosis Discharge Diagnosis (1) Sepsis syndrome: Status: Acute (2) Urinary tract infection: Status: Acute (3) BEN (acute kidney injury): Status: Acute (4) Type II diabetes mellitus with complication, uncontrolled: Status: Chronic (5) Schizophrenia: Status: Chronic (6) COVID-19 ruled out by laboratory testing: Status: Ruled-out Discharge Plan Disposition Patient Disposition: SNF (LEVEL 1) [facility] Condition: Stable Discharge Details Reason For Visit: Sepsis Syndrome,UTI Admit Date/Time: 01/01/21 21:55 Admit Provider: Sriram Lomax Attending Provider: Sriram Lomax Primary Care Provider: Yumiko Israel Hospital Course Hospital Course: MS Angela is an 80 year old female with PMHx of NIDDM2, HTN, schizophrenia, dementia, who was admitted to [facility] hospitalist service on 01/01/21 with sepsis due to proteus UTI. She was treated with empiric ceftriaxone. She defervesced. She has been refusing blood draws and studies, including imaging and blood cultures, and she has been refusing oral medications. At this point, it is felt that some of this is situational and that she would do better with her chronic oral medications as well as with completion of her antibiotics at the [facility]. Palliative care was consulted to evaluate appropriate aggressiveness of care for this patient because she has been so consistent with refusing workup/medications at the hospital. At this time, conversation with the guardian is pending to discuss whether the patient shoudn't be transferred to the hospital in the future, and this should be followed up by the nursing facility. We are discharging the patient to the [facility] with 7 more days of cefpodoxime. Should she refuse therapy, comfort measures at the nursing facility should be considered. Care for patient as well as completion of her discharge summary took 60 minutes on the day of discharge. Home Meds and New Rx's Prescriptions: New cefpodoxime 100 mg tablet 100 mg PO BID Qty: 14 RF: 0 insulin aspart U-100 [Novolog Flexpen U-100 Insulin] 100 unit/mL (3 mL) Insulin Pen See Rx Instructions .ROUTE .COMPLEX Qty: 3 RF: 0 Continued sennosides [Senna Laxative] 8.6 MG tablet 8.6 mg PO DAILY RF: 0 acetaminophen 325 MG tablet 650 mg PO TID RF: 0 olanzapine [Zyprexa] 10 MG tablet 5 mg PO BID RF: 0 cholecalciferol (vitamin D3) 1,000 UNITS tablet 1,000 unit PO DAILY RF: 0 morphine 15 MG tablet 7.5 mg PO Q4H PRN PRNQty: 10 RF: 0 polyethylene glycol 3350 [Miralax] 17 gram/dose Powder 17 g PO Q OTHER DAY RF: 0 Discontinued metformin 850 MG tablet 850 mg PO BID@0800,1700 RF: 0 enoxaparin [Lovenox] 40 MG/0.4 ML syringe 40 mg Sub-Q Q24H Qty: 28 RF: 0 nitrofurantoin monohyd/m-cryst [Macrobid] 100 MG capsule 100 mg PO BID 5 Days RF: 0 Discharge Instructions Instructions: Cefpodoxime Proxetil (By mouth), Urinary Tract Infection in Older Adults (DC) Additional Instructions: Finish anibiotics as prescribed. Follow up on the results of the palliative care consults. Return to the hospital only if this aligns with goals of care. Activity:: Activity as Tolerated Equipment/Supplies:: No Equipment Needed Diet:: Carb Counting Discharge Orders Discharge Orders: Discharge Order (Routine); Ordered 01/04/21 Ordered By: Alina Zendejas DS: Summary Time Spent with Patient providing and/or coordinating discharge services: Greater than 30 minutes Status at Discharge Functional status at discharge: bed bound Overall status at discharge: patient is not back to baseline Mental Status: other Speech and Movement: speech and movement normal Mood: euthymic mood and other Affect: normal affect Exam Narrative Exam Narrative: General: Pleasant elderly female, A&Ox2 (knows she is not at the [facility]), who keeps saying thank you for all you do, but I just want to be with the Lord HEENT: EOMI, MMM Heart: RRR Lungs: CTAB Abdomen: soft, nontender, nondistended Extremities: no edema Psych Mental Status: other Speech and Movement: speech and movement normal Mood: euthymic mood and other Affect: normal affect DS: Data Vitals/I&O Vitals and I&O: Vital Signs Temperature 36.7 C 01/04/21 11:38 Temperature Source Tympanic 01/04/21 11:38 Pulse 85 01/04/21 11:38 Pulse Rhythm Regular 01/04/21 04:50 Pulse 100 H 01/01/21 22:50 Respiratory Rate 20 01/04/21 11:38 Respiratory Effort Non-Labored 01/04/21 08:30 Respiratory Depth Normal 01/04/21 08:30 Respiratory Pattern Normal 01/04/21 08:30 Blood Pressure 156/88 H 01/04/21 11:38 Blood Pressure Mean 70 01/01/21 22:46 Blood Pressure Position Sitting 01/01/21 20:43 Pulse Oximetry 97 01/04/21 11:38 Oxygen Delivery Method Room Air 01/04/21 11:38 Oxygen Flow Rate 0 01/04/21 11:38 Pain Level 0 01/04/21 11:38 Comment 01/04/21 08:30 Intake & Output 01/03/21 01/04/21 01/04/21 23:59 11:59 23:59 Intake Total 1390.833 / 2390.833 Balance 1390.833 / 2390.833 Intake: IV 1390.833 / 2390.833 Other: Urine Color Yellow Yellow Urine Appearance Clear Clear Urine Odor Normal Comment Dry Voiding Methods Diaper Diaper Incontinent Incontinent Data Completed and Pending Completed studies during hospitalization [Text1]: No imaging on this admission was permitted by the patient. Labs on day of discharge: Labs from last 24 hours 01/03/21 01/03/21 05:35 05:35 WBC Cancelled RBC Cancelled Hgb Cancelled Hct Cancelled MCV Cancelled MCH Cancelled MCHC Cancelled RDW Cancelled Plt Count Cancelled MPV Cancelled Immature Gran % Cancelled Neutrophils % Cancelled Band Neutrophils % Cancelled Lymphocytes % Cancelled Atypical Lymphs % Cancelled Monocytes % Cancelled Eosinophils % Cancelled Basophils % Cancelled Metamyelocytes % Cancelled Myelocytes % Cancelled Promyelocytes % Cancelled Other Cells % Cancelled Nucleated RBC % Cancelled Absolute Neutrophils Cancelled Absolute Lymphocytes Cancelled Absolute Monocytes Cancelled Absolute Eosinophils Cancelled Absolute Basophils Cancelled RBC Morphology Cancelled Polychromasia Cancelled Hypochromasia Cancelled Poikilocytosis Cancelled Basophilic Stippling Cancelled Anisocytosis Cancelled Microcytosis Cancelled Macrocytosis Cancelled Spherocytes Cancelled Tear Drop Cells Cancelled Ovalocytes Cancelled Stomatocytes Cancelled [place] Bodies Cancelled [place] Cells/Echinocytes Cancelled Acanthocytes (Spur) Cancelled Schistocytes Cancelled Sodium Cancelled Potassium Cancelled Chloride Cancelled Carbon Dioxide Cancelled Anion Gap Cancelled BUN Cancelled Creatinine Cancelled Estimated GFR/1.73 m2 Cancelled Glucose Cancelled Calcium Cancelled [facility] Medical History (Updated 01/04/21 @ 12:13 by Alina Zendejas MD) Dementia Diabetes mellitus type II, controlled, with no complications Schizophrenia Surgical History LEFT HIP FRACTURE (03/17/17) S/P NAIL AND FIXATION; DR. PARIS Social History Smoking/Tobacco Use Status: Former Tobacco Use Smoking risk assessment performed?: Yes
--- NOTE | 2021-01-04 17:52 | CMDISCH_ITS ---
- If Service Date Differs Date of service: 01/04/21 Time of Service: 17:52 LACE Index Scoring Tool - Questions: Length of Stay (in days): 3 Acuity (Admit via E.D.?): Yes Comorbidities: Diabetes w/o Complication, Dementia E.D. Visits: 1 - Answers: Total Score: 12 Risk of Readmission: High Risk Care Management Discharge Reason for Hospitalization: Sepsis syndrome, UTI Discharge Plan: Paulette will return to the [facility] when ready per MD. She will transport via EMS due to dementia, coordinated by CM. [facility] notified of discharge plan. RN-RN information provided to [facility] ([place]). Palliative provider, Belia reported she would be outreaching to guardian to discuss goals of care central to hospital transfer. Patient/Family Education Needs: Review of discharge instructions, discuss Ask Me Three. Services Needed at Discharge: Longterm Facility ([facility]-residence, return SNF ), Transportation ([facility] )
== END 2021-01-04 14:09 | disposition skilled nursing facility (03) | DRG 872 ==
LOC: ER 22:18 → MS 23:01
PROVIDERS: Nurse Practitioner Acute Care; Admitting Provider Family Medicine; Emergency Provider Emergency Medicine; PCP Family Medicine; Visit Provider Family Medicine
DX: A41.89 Other specified sepsis (principal); N39.0 Urinary tract infection, site not specified; N17.9 Acute kidney failure, unspecified; F20.1 Disorganized schizophrenia; E11.65 Type 2 diabetes mellitus with hyperglycemia; Z66 Do not resuscitate; Z20.822 Contact with and (suspected) exposure to COVID-19; I10 Essential (primary) hypertension; F03.90 Unspecified dementia, unspecified severity, without behavioral disturbance, psychotic disturbance, mood disturbance, and anxiety; B96.4 Proteus (mirabilis) (morganii) as the cause of diseases classified elsewhere; E86.0 Dehydration
CPT/HCPCS: 36415; 80048; 80053; 82805; 87077; 87081; 87635; 96361; 96365; 96375; 99285; 81003; 81015; 83735; 85025; 87086; 87186; 99223; 99233; 99239; J0131; J2270

== ENCOUNTER 2021-05-06 11:41 | Inpatient (IN) | payer MEDICARE, OTHER, MEDICAID, SELFPAY ==
[2021-05-06] VITALS (28 sets, daily range): BP systolic 98–178; BP diastolic 61–91; PULSE 0–118; RESP 12–27; TEMP 36.3–37.3; O2SAT 86–100
--- NOTE | 2021-05-06 11:45 | DI.RAD_ITS ---
Exam(s) XR PORTABLE CHEST AP EXAM: XR PORTABLE CHEST AP CLINICAL HISTORY: lethargy. TECHNIQUE: 2D digital imaging was performed. COMPARISON: CR CHEST ONE VIEW IN RAD DEPT from 03/17/2017 FINDINGS: Heart size is upper normal. The mediastinum is not widened. Lungs are clear. No infiltrates nor obvious pleural effusions. IMPRESSION: No acute pulmonary findings on this single AP portable view of the chest. DATA REPOSITORY: RADIATION DOSE DELIVERED: All CT scans at this facility use at least one of these dose optimization techniques: automated exposure control; mA and/or kV adjustment per patient size (includes targeted e xams where dose is matched to clinical indication); or iterative reconstruction.
--- NOTE | 2021-05-06 12:00 | RT.EKG_ITS ---
APPROVED REPORT Exam: Resting ECG Reason for Exam: AMS, tachycardia Patient Location: E HR:102 bpm ECG Measurements Heart Rate 102 AXIS NC 151 P 40 QRSd 75 QRS 35 QT 346 T 31 QTc 451 Conclusion Sinus tachycardia...rate> 99 sinus tachycardia 102, normal axis, no acute ischemic changes, nondiagnostic EKG
--- NOTE | 2021-05-06 12:00 | DI.CT_ITS ---
Exam(s) CT HEAD WO EXAM: CT HEAD WO CLINICAL HISTORY: AMS. TECHNIQUE: Imaging Protocol: Axial computed tomography images with coronal and sagittal reformatted images were created and reviewed COMPARISON: No exams were available for comparison FINDINGS: There are no skull fractures nor fluid in the visualized paranasal sinuses. There is no evidence of intracranial hemorrhage, mass effect, or shift of midline structures. There are no extra-axial fluid collections. The ventricles are not enlarged or shifted and there is no blo od within the ventricular system nor within the basal cisterns. Mild bilateral periventricular hypodensity consistent with chronic small vessel disease. Symmetrical involutional change. Size of the ventricles this commensurate with the size of the overlying cortic al sulci. IMPRESSION: No acute intracranial findings on this noninfused CT scan of the brain. Involutional change-symmetrical atrophy consistent with this patient's advanced age. RADIATION DOSE DELIVERED: 747.93mGy.cm Total DLP DATA REPOSITORY: All CT scans at this facility are submitted to the National Radiology Data Registry (NRDR) Dose Index Registry (DIR) with the [employer] (ACR). RADIATION OPTIMIZATION: All CT scans at this facility use at least one of these dose optimization te chniques: automated exposure control; mA and/or kV adjustment per patient size (includes targeted exa ms where dose is matched to clinical indication); or iterative reconstruction.
--- NOTE | 2021-05-06 12:01 | ED.GENADUL_ITS ---
Discharge Plan Disposition Patient Disposition: [facility] INPATIENT Discharge Details Clinical Impression: UGIB (upper gastrointestinal bleed), Anemia, Altered mental status Admit Date/Time: 05/06/21 13:36 Admit Provider: Alina Zendejas Attending Provider: Alina Zendejas Primary Care Provider: Yumiko Israel ED Provider: Moriah Neely Medical Decision Making Paulette Angela is an 80-year-old woman with a history of schizophrenia, dementia, insulin-dependent diabetes presenting to emergency department with altered mental status, coffee-ground emesis twice today. On exam patient is ill- appearing, no extremis, alert but altered. There is no abdominal tenderness to palpation. Rectal exam reveals soft formed stool, Hemoccult negative. Concern for upper GI bleed, metabolic/lyte derangement, occult infection (pulmonary versus UTI), acute emergent intracranial process, other. Doubt ACS. Exam/history at this time not consistent with sepsis, acute aortic pathology. Plan for screening labs, IV access, EKG, telemetry, CT head, chest x-ray. Will monitor and reassess. Labs reviewed, hemoglobin resulted 7.7 from , INR 1.1, lactate 1.6, BUN 45, creatinine 1.3, glucose 380, anion gap 9.2. No DKA. BUN to creatinine ratio consistent with GI bleed. Plan to transfuse 1 unit PRBCs in addition to IV fluids. Etiology of upper GI bleed unknown, will give octreotide and pantoprazole. I discussed the patient with Dr. Calle of surgery, who recommended continue pantoprazole, no further acute interventions at this time, recommended admit to hospitalist. I discussed the patient with Dr. Zendejas, hospitalist, who requested CT abdomen/pelvis and addition to CT head, also request patient be made PUI as there is currently a Covid outbreak at patient long-term [facility] facility. CT head read as negative. Patient admitted to hospitalist. Medical Records Medical records reviewed: Yes I reviewed the patient's medical records. Imaging Data Radiologic Study: Attestation: I personally reviewed and interpreted this imaging study as follows: Radiologist's impression: EXAM: CT HEAD WO CLINICAL HISTORY: AMS. TECHNIQUE: Imaging Protocol: Axial computed tomography images with coronal and sagittal reformatted images were created and reviewed COMPARISON: No exams were available for comparison FINDINGS: There are no skull fractures nor fluid in the visualized paranasal sinuses. There is no evidence of intracranial hemorrhage, mass effect, or shift of midline structures. There are no extra-axial fluid collections. The ventricles are not enlarged or shifted and there is no blood within the ventricular system nor within the basal cisterns. Mild bilateral periventricular hypodensity consistent with chronic small vessel disease. Symmetrical involutional change. Size of the ventricles this commensurate with the size of the overlying cortical sulci. IMPRESSION: No acute intracranial findings on this noninfused CT scan of the brain. Involutional change-symmetrical atrophy consistent with this patient's advanced age. Lab Data Lab results reviewed: Yes I reviewed the patient's lab results. Labs: 05/06/21 12:20 Urine - Reflex from Ua Urine Culture - Pending Laboratory Tests Range/Units 05/06/21 05/06/21 05/06/21 12:05 12:05 12:05 WBC (4.4-10.8) 10^3/uL 14.18 H RBC (3.93-5.22) 10^6/uL 4.02 Hgb (11.2-15.7) g/dL 7.7 L Hct (36.0-46.0) % 28.0 L MCV (80-95) fL 69.7 L MCH (27.0-33.0) pg 19.2 L MCHC (32.0-36.0) % 27.5 L RDW (11.7-14.6) % 17.5 H Plt Count (130-400) 10^3/uL 647 H MPV (8.0-11.0) fL 10.6 Immature Gran % 0.6 Neutrophils % 86.1 Lymphocytes % 5.6 Monocytes % 7.5 Eosinophils % 0.0 Basophils % 0.2 Nucleated RBC % % 0 Absolute Neutrophils (1.2-6.7) 10^3/uL 12.21 H Absolute Lymphocytes (1.2-3.4) 10^3/uL 0.79 L Absolute Monocytes (0.1-0.8) 10^3/uL 1.06 H Absolute Eosinophils (0.0-0.7) 10^3/uL 0.00 Absolute Basophils (0.0-0.2) 10^3/uL 0.03 RBC Morphology See Below Polychromasia Present Hypochromasia 1+ Poikilocytosis 1+ Basophilic Stippling 1+ Microcytosis 2+ PT (9.3-11.0) sec INR (0.9-1.1) VBG Lactate (0.6-1.4) mmol/L 1.6 H Sodium (136-145) mmol/L 145 Potassium (3.5-5.1) mmol/L 3.8 Chloride (98-107) mmol/L 107 Carbon Dioxide (21.0-32.0) mmol/L 28.8 Anion Gap (3-11) mmol/L 9.2 BUN (7-18) mg/dL 45 H Creatinine (0.55-1.02) mg/dL 1.3 H Estimated GFR/1.73 m2 (mL/min/1.73m2) 39.31 Glucose (74-106) mg/dL 380 H Calcium (8.5-10.1) mg/dL 9.8 Magnesium (1.8-2.4) mg/dL 2.5 H Total Bilirubin (0.2-1.0) mg/dL 0.3 AST (15-37) U/L 6 L ALT (14-59) U/L 13 L Alkaline Phosphatase (46-116) U/L 96 Troponin I (<or=60) ng/L < 50 Total Protein (6.4-8.2) g/dL 7.7 Albumin (3.4-5.0) g/dL 2.9 L Urine Color (Yellow) Urine Clarity (Clear) Urine pH (5-8) Ur Specific [place] (1.005-1.025) Urine Protein (Negative) mg/dL Urine Ketones (Negative) mg/dL Urine Blood (Negative) Urine Nitrite (Negative) Urine Bilirubin (Negative) Urine Urobilinogen (Up TO 0.2) EU/dL Ur Leukocyte Esterase (Negative) Urine RBC (0-2) HPF Urine WBC (0-5) HPF Ur Epithelial Cells (Negative) HPF Urine Crystals (Negative) HPF Urine Bacteria (Negative) HPF Urine Casts (Negative) LPF Urine Mucus (Negative) Ur Culture Indicated? Urine Glucose (Negative) mg/dL COVID-19 Source Path Cons Comment Patient ABO/Rh Antibody Screen Crossmatch Range/Units 05/06/21 05/06/21 05/06/21 12:05 12:05 12:08 WBC (4.4-10.8) 10^3/uL RBC (3.93-5.22) 10^6/uL Hgb (11.2-15.7) g/dL Hct (36.0-46.0) % MCV (80-95) fL MCH (27.0-33.0) pg MCHC (32.0-36.0) % RDW (11.7-14.6) % Plt Count (130-400) 10^3/uL MPV (8.0-11.0) fL Immature Gran % Neutrophils % Lymphocytes % Monocytes % Eosinophils % Basophils % Nucleated RBC % % Absolute Neutrophils (1.2-6.7) 10^3/uL Absolute Lymphocytes (1.2-3.4) 10^3/uL Absolute Monocytes (0.1-0.8) 10^3/uL Absolute Eosinophils (0.0-0.7) 10^3/uL Absolute Basophils (0.0-0.2) 10^3/uL RBC Morphology Polychromasia Hypochromasia Poikilocytosis Basophilic Stippling Microcytosis PT (9.3-11.0) sec 10.9 INR (0.9-1.1) 1.1 VBG Lactate (0.6-1.4) mmol/L Sodium (136-145) mmol/L Potassium (3.5-5.1) mmol/L Chloride (98-107) mmol/L Carbon Dioxide (21.0-32.0) mmol/L Anion Gap (3-11) mmol/L BUN (7-18) mg/dL Creatinine (0.55-1.02) mg/dL Estimated GFR/1.73 m2 (mL/min/1.73m2) Glucose (74-106) mg/dL Calcium (8.5-10.1) mg/dL Magnesium (1.8-2.4) mg/dL Total Bilirubin (0.2-1.0) mg/dL AST (15-37) U/L ALT (14-59) U/L Alkaline Phosphatase (46-116) U/L Troponin I (<or=60) ng/L Total Protein (6.4-8.2) g/dL Albumin (3.4-5.0) g/dL Urine Color (Yellow) Urine Clarity (Clear) Urine pH (5-8) Ur Specific [place] (1.005-1.025) Urine Protein (Negative) mg/dL Urine Ketones (Negative) mg/dL Urine Blood (Negative) Urine Nitrite (Negative) Urine Bilirubin (Negative) Urine Urobilinogen (Up TO 0.2) EU/dL Ur Leukocyte Esterase (Negative) Urine RBC (0-2) HPF Urine WBC (0-5) HPF Ur Epithelial Cells (Negative) HPF Urine Crystals (Negative) HPF Urine Bacteria (Negative) HPF Urine Casts (Negative) LPF Urine Mucus (Negative) Ur Culture Indicated? Urine Glucose (Negative) mg/dL COVID-19 Source Nasal/Nares Path Cons Comment Patient ABO/Rh A Positive Antibody Screen NEGATIVE Crossmatch See Detail Range/Units 05/06/21 12:20 WBC (4.4-10.8) 10^3/uL RBC (3.93-5.22) 10^6/uL Hgb (11.2-15.7) g/dL Hct (36.0-46.0) % MCV (80-95) fL MCH (27.0-33.0) pg MCHC (32.0-36.0) % RDW (11.7-14.6) % Plt Count (130-400) 10^3/uL MPV (8.0-11.0) fL Immature Gran % Neutrophils % Lymphocytes % Monocytes % Eosinophils % Basophils % Nucleated RBC % % Absolute Neutrophils (1.2-6.7) 10^3/uL Absolute Lymphocytes (1.2-3.4) 10^3/uL Absolute Monocytes (0.1-0.8) 10^3/uL Absolute Eosinophils (0.0-0.7) 10^3/uL Absolute Basophils (0.0-0.2) 10^3/uL RBC Morphology Polychromasia Hypochromasia Poikilocytosis Basophilic Stippling Microcytosis PT (9.3-11.0) sec INR (0.9-1.1) VBG Lactate (0.6-1.4) mmol/L Sodium (136-145) mmol/L Potassium (3.5-5.1) mmol/L Chloride (98-107) mmol/L Carbon Dioxide (21.0-32.0) mmol/L Anion Gap (3-11) mmol/L BUN (7-18) mg/dL Creatinine (0.55-1.02) mg/dL Estimated GFR/1.73 m2 (mL/min/1.73m2) Glucose (74-106) mg/dL Calcium (8.5-10.1) mg/dL Magnesium (1.8-2.4) mg/dL Total Bilirubin (0.2-1.0) mg/dL AST (15-37) U/L ALT (14-59) U/L Alkaline Phosphatase (46-116) U/L Troponin I (<or=60) ng/L Total Protein (6.4-8.2) g/dL Albumin (3.4-5.0) g/dL Urine Color (Yellow) Yellow Urine Clarity (Clear) Cloudy Urine pH (5-8) 8.5 H Ur Specific [place] (1.005-1.025) 1.025 Urine Protein (Negative) mg/dL 100 H Urine Ketones (Negative) mg/dL 15 H Urine Blood (Negative) Trace-intact H Urine Nitrite (Negative) Negative Urine Bilirubin (Negative) Negative Urine Urobilinogen (Up TO 0.2) EU/dL 0.2 Ur Leukocyte Esterase (Negative) Moderate H Urine RBC (0-2) HPF 3-5 H Urine WBC (0-5) HPF >50 H Ur Epithelial Cells (Negative) HPF Rare Urine Crystals (Negative) HPF Few Triple Phos Urine Bacteria (Negative) HPF Many Urine Casts (Negative) LPF 3-5 Hyaline Urine Mucus (Negative) Moderate Ur Culture Indicated? Yes Urine Glucose (Negative) mg/dL 500 H COVID-19 Source Path Cons Comment Patient ABO/Rh Antibody Screen Crossmatch ECG Data Attestation: I personally reviewed and interpreted this ECG (s) as follows: Interpretation: EKG shows sinus tachycardia 102, normal axis, no acute ischemic changes, nondiagnostic EKG HPI General Mode of arrival: EMS . Date/Time Provider Initiated Documentation: 05/06/21 11:50 . Limitations to Documentation: altered mental status . Information obtained by: patient, RN/MD (nurse at facility), RN notes reviewed and old records reviewed . HPI Narrative: Paulette Angela is an 80-year-old woman with a history of schizophrenia, insulin-dependent diabetes, dementia presenting to the emergency department with vomiting. Patient resides at [facility], per nurse at that facility patient has had 2 episodes of what looks like coffee- ground emesis today and has been more lethargic than typical. Per their report patient has had very poor p.o. intake recently. From records it appears that patient has also not been taking her daily medications as usual. Patient is alert and opens her eyes to voice, but does not answer most questions. History is limited due to this. Patient denies vomiting today, denies any pain. Per record review, patient was admitted here 01/01 for UTI, and during that visit she refused various treatments. I discussed goals of care over the phone with patient's brother, who stated that patient is DNR/DNI but does want other interventions such as antibiotics, blood as needed. Related Data Home Medications Medication Instructions Recorded Confirmed acetaminophen 650 mg PO TID 03/17/17 05/06/21 cholecalciferol (vitamin D3) 1,000 unit PO DAILY 03/17/17 05/06/21 olanzapine [Zyprexa] 5 mg PO BID 03/17/17 05/06/21 sennosides [Senna Laxative] 8.6 mg PO DAILY 03/17/17 05/06/21 morphine 7.5 mg PO Q4H PRN PRN #10 tab 03/19/17 polyethylene glycol 3350 [Miralax] 17 g PO Q OTHER DAY 01/01/21 05/06/21 cefpodoxime 100 mg PO BID #14 tab 01/04/21 insulin aspart U-100 [Novolog See Rx Instructions .ROUTE 01/04/21 Flexpen U-100 Insulin] .COMPLEX #3 ml dulaglutide [Trulicity] 3 mg SUBCUT DIRECTED 05/06/21 05/06/21 insulin glargine [Lantus U-100 100 unit SUBCUT QHS 05/06/21 05/06/21 Insulin] Previous Rx's Medication Instructions Recorded morphine 7.5 mg PO Q4H PRN PRN #10 tab 03/19/17 cefpodoxime 100 mg PO BID #14 tab 01/04/21 insulin aspart U-100 [Novolog See Rx Instructions .ROUTE 01/04/21 Flexpen U-100 Insulin] .COMPLEX #3 ml Allergies Allergy/AdvReac Type Severity Reaction Status Date / Time No Known Allergies Allergy Unverified 09/21/21 20:57 General Stated Complaint: GI Bleed SHANTI: 3 Review of Systems Narrative: Eyes: denies eye pain ENT: denies ear pain, dental pain, sore throat Cardiovascular: denies chest pain GI: denies abdominal pain, facility caregiver report 2 episodes of coffee-ground emesis today : denies flank pain MSK: denies back pain, neck pain Neuro: denies headaches Review of systems limited secondary to altered mental status PFSH All Active Problems (Updated 05/06/21 @ 14:10 by Alina Zendejas MD) Discharge planning issues (Acute) DVT prophylaxis (Acute) Acute UTI (Acute) Anemia due to acute blood loss (Acute) UGIB (upper gastrointestinal bleed) (Acute) Anemia (Chronic) Altered mental status (Acute) Palliative care patient (Acute) Type II diabetes mellitus with complication, uncontrolled (Chronic) Acute hyperglycemia (Acute) BEN (acute kidney injury) (Acute) Hyperglycemia (Acute) Medical History Dementia Diabetes mellitus type II, controlled, with no complications Schizophrenia Urinary tract infection Surgical History LEFT HIP FRACTURE (03/17/17) S/P NAIL AND FIXATION; DR. [place]IS Social History Smoking/Tobacco Use Status: Former Tobacco Use Smoking risk assessment performed?: Yes Alcohol Intake: never Drug use: Never Substance use type: does not use Additional Social history: unable to answer. Exam Narrative Exam Narrative: Constitutional: Ill-appearing, alert, quiet, answers yes or no to some questions HENT: head atraumatic/normocephalic/normal inspection, mucous membranes somewhat dry Eyes: conjunctiva normal, sclera normal, pupils 3mm b/l Neck: no stridor, normal ROM, trachea midline Chest: normal inspection Resp: normal work of breathing, LCTAB Cardio: normal rate, normal rhythm, no murmur appreciated GI: abdomen soft, non-tender, non-distended, rectal exam normal, rectal exam shows formed stool, Hemoccult negative Back: normal inspection, no rash Skin: warm, dry, normal color, no rash Neuro: alert, alert but altered, grossly non-focal, normal tone Ext: no edema Course Vital Signs Vital signs: Vital Signs Temperature 36.3 C L 05/06/21 11:50 Pulse 118 H 05/06/21 11:50 Respiratory Rate 20 05/06/21 11:50 Blood Pressure 131/79 05/06/21 11:50 Pulse Oximetry 99 05/06/21 11:50 Temperature 36.3 C L 05/06/21 11:50 Pulse 118 H 05/06/21 11:50 Respiratory Rate 20 05/06/21 11:50 Respiratory Effort Non-Labored 05/06/21 11:54 Blood Pressure 131/79 05/06/21 11:50 Blood Pressure Position Supine 05/06/21 11:50 Pulse Oximetry 99 05/06/21 11:50 Oxygen Delivery Method Room Air 05/06/21 11:50 Oxygen Flow Rate 0 05/06/21 11:50 Pain Level 0 05/06/21 11:50 Comment 05/06/21 11:50
[2021-05-06 12:16] LABS: Abs Immature Grans 0.08 10^3/uL (0.0-0.06); Absolute Basophil Count 0.03 10^3/uL (0.0-0.2); Absolute Lymphocyte Count 0.79 10^3/uL (1.2-3.4); Absolute Monocyte Count 1.06 10^3/uL (0.1-0.8); Absolute Neutrophil Count 12.21 10^3/uL (1.2-6.7); Basophils % 0.2; HGB 7.7 g/dL (11.2-15.7); Immature Grans % 0.6; Lactate 1.6 mmol/L (0.6-1.4); Lymphocytes % 5.6; MCH 19.2 pg (27.0-33.0); MCHC 27.5 % (32.0-36.0); MCV 69.7 fL (80-95); MPV 10.6 fL (8.0-11.0); Monocytes % 7.5; Neutrophils % 86.1; Nucleated RBC 0 %; RBC 4.02 10^6/uL (3.93-5.22); RDW 17.5 % (11.7-14.6); RDW-SD 43.4 fL; WBC 14.18 10^3/uL (4.4-10.8)
[2021-05-06] MEDS: Normal Saline 250 ML IV (12:24)
[2021-05-06 12:27] LABS: INR 1.1 (0.9-1.1); Prothrombin Time 10.9 sec (9.3-11.0)
[2021-05-06 12:31] LABS: Diff Comment RBC Morph Reviewed; Hypochromasia 1+; Microcytosis 2+; Platelet Count 647 10^3/uL (130-400); Polychromasia Present
[2021-05-06 12:32] LABS: Basophilic Stippling 1+; Poikilocytes 1+
[2021-05-06 12:35] LABS: ALT 13 U/L (14-59); AST 6 U/L (15-37); Albumin 2.9 g/dL (3.4-5.0); Alkaline Phosphatase 96 U/L (46-116); Anion Gap 9.2 mmol/L (3-11); BUN 45 mg/dL (7-18); Bilirubin, Total 0.3 mg/dL (0.2-1.0); CO2 28.8 mmol/L (21.0-32.0); CREATININE 1.3 mg/dL (0.55-1.02); Calcium 9.8 mg/dL (8.5-10.1); Chloride 107 mmol/L (98-107); Estimated GFR 39.31 (mL/min/1.73m2); Glucose 380 mg/dL (74-106); Magnesium 2.5 mg/dL (1.8-2.4); Potassium 3.8 mmol/L (3.5-5.1); Sodium 145 mmol/L (136-145); Total Protein 7.7 g/dL (6.4-8.2); Troponin I < 50 ng/L (<or=60)
[2021-05-06 12:41] LABS: Bilirubin Negative (Negative); Blood Trace-intact (Negative); Clarity Cloudy (Clear); Glucose 500 mg/dL (Negative); Ketones 15 mg/dL (Negative); Leukocyte Esterase Moderate (Negative); Nitrite Negative (Negative); Specific Gravity 1.025 (1.005-1.025); Urobilinogen 0.2 EU/dL (Up TO 0.2); pH 8.5 (5-8)
[2021-05-06] MEDS: Octreotide 100 MCG/ML VIAL 50 MCG IVP (12:45)
[2021-05-06] MEDS: PANTOPRAZOLE 80 MG in Normal Saline 100 ML 10 MG IV (12:45)
[2021-05-06 12:49] LABS: Bacteria Many HPF (Negative); Epithelial Cells Rare HPF (Negative); WBC >50 HPF (0-5)
[2021-05-06 12:50] LABS: C & S Indicated? Yes; Casts 3-5 Hyaline LPF (Negative); Crystals Few Triple Phos HPF (Negative); Mucus Moderate (Negative)
--- NOTE | 2021-05-06 13:30 | DI.CT_ITS ---
Exam(s) CT ABDOMEN PELVIS W EXAM: CT ABDOMEN PELVIS W CLINICAL HISTORY: vomiting, AMS. TECHNIQUE: Imaging Protocol: Axial computed tomography images with coronal and sagittal reformatted images were created and reviewed CONTRAST MATERIAL: Intravenous: Omnipaque 100cc Oral: None COMPARISON: No exams were available for comparison FINDINGS: VISUALIZED LUNG BASES: There is trace pleural fluid on the right side.. ABDOMEN: Esophagus wall appears thickened at the GE junction, possibly significant. There is no adjacent lymp hadenopathy. There is no ascites. LIVER: There are no focal hepatic lesions evident . GALLBLADDER/BILIARY: Multiple large facet it gallstones are noted in the gallbladder lumen. The larg est of these is a measures 2.5 x 1.8 cm. Gallbladder somewhat distended, measuring 12 cm length by 5 cm wide. However, the gallbladder wall is not edematous and there is no pericholecystic fluid. CBD is not dilated. PANCREAS: There are multiple parenchymal calcifications noted throughout the entire length of the junior creas. Largest of these are in the pancreatic head and uncinate process, these calcifications rangin g up to 1.2 by 1.1 cm size. The pancreatic duct is dilated. Cannot exclude subtle pancreatic lesion . SPLEEN: Spleen is not enlarged. No obvious intrasplenic lesions. Splenic and portal veins are paten t. ADRENALS: There are no significant adrenal masses. KIDNEYS:There are multiple cysts in the right kidney. Largest of these measures 1.5 x 1.5 cm. No so lid lesions in either kidney. Small nonobstructive calculi in each kidney. Ureters are not dilated. . ABDOMINAL AORTA: Calcified but not enlarged. LYMPH NODES:There is no retroperitoneal nor paraaortic adenopathy. ABDOMINAL WALL: No evidence of significant anterior abdominal wall nor inguinal hernia. GI: There is no evidence of bowel obstruction, free air, nor abscess. Right-side of the colon is collapsed. In the left side of the abdomen there are few slightly promine nt small bowel loops ranging up to 2.8 cm diameter. Do not exhibit bowel wall edema. There is abund ant fecal material in the transverse colon, splenic flexure, and descending-left colon. No diverticu li. Moderate amount of fecal material throughout the rectosigmoid and there is rectal fecal distensi on with the rectum exhibiting diameter of 7 by 6.5 cm. PELVIS: GI: Appendix not identified.No evidence of sigmoid diverticulitis. LYMPH NODES: There is no intrapelvic nor inguinal adenopathy. REPRODUCTIVE: Uterus and adnexal regions appear unremarkable. No free fluid. URINARY BLADDER: Somewhat irregular wall on the right side. OSSEOUS: Left hip hardware. No osseous lesions. No fractures evident. IMPRESSION: 1. Multiple large gallstones. The gallbladder is somewhat distended a measuring 12 x 5 cm but does n ot appear acutely edematous. Common hepatic duct is not dilated. 2. Multiple pancreatic calcifications consistent with chronic pancreatitis, with the calcifications e xtending the entire length of the pancreas and associated with significant dilatation of the pancreat ic duct, these findings consistent with chronic calcific pancreatitis. There is no obvious acute junior creatitis. 3. Benign right kidney cysts. Small nonobstructive calculi both kidneys. 4. 4. Abundant fecal material noted in the transverse colon and distal with rectal distension 7 x 6 cm. No difficult diverticular disease of the colon evident. The right-side of the colon is collapsed a nd difficult to evaluate. Appendix is not visualized. 5. Left hip hardware. No osseous lesions nor fractures evident. RADIATION DOSE DELIVERED: 870.98mGy.cm Total DLP DATA REPOSITORY: All CT scans at this facility are submitted to the National Radiology Data Registry (NRDR) Dose Index Registry (DIR) with the [employer] (A[employer]). RADIATION OPTIMIZATION: All CT scans at this facility use at least one of these dose optimization te chniques: automated exposure control; mA and/or kV adjustment per patient size (includes targeted exa ms where dose is matched to clinical indication); or iterative reconstruction.
--- NOTE | 2021-05-06 13:43 | HPE_ITS ---
Date of service: 05/06/21 Time of Service: 13:43 Assessment and Plan Assessment and plan (1) UGIB (upper gastrointestinal bleed): Status: Acute Assessment and plan: NPO. Treat with IV protonix, carafate. General surgery and palliative care consulted. The patient has previously met with palliative care, and at that time there was a question of de-escalating aggressive care; however, it is not clear if the patient's brother (guardian) had ever returned Palliative Care's call. Paulette was consistently refusing care on her last admission with us in 01/01. No chemical DVT ppx at this time. (2) Anemia due to acute blood loss: Status: Acute Assessment and plan: As above 1 unit pRBCs ordered in the ED. Will treat GI bleed, trend H/H. Obtain anemia studies on bloodwork prior to blood transfusion. (3) Acute UTI: Status: Acute Assessment and plan: Started on empiric ceftriaxone which we will continue (4) Nausea & vomiting: Status: Acute Assessment and plan: CT abdomen/pelvis demonstrates cholelithiasis without cholecystitis as well as changes of chronic pancreatitis. Additionally, there is also evidence of constipation and fecal impaction. We will treat constipation. I do not feel that clinically the patient has either acute pancreatitis or cholecystitis. (5) Altered mental status: Status: Acute Assessment and plan: The patient has a basline diagnosis of dementia as well as h/o schizophrenia and has a UTI, currently. This is likely delirium in addition to worsening dementia. (6) Constipation: Status: Acute Assessment and plan: Written for an enema and a dose of dulcolax today, as well as scheduled colace, senna, and prn dulcolax. May be one of the reasons for n/v. (7) Failure to thrive: Status: Acute Assessment and plan: Decreased PO intake over 1 week. Could be situational due to constipation, n/v, UTI. Will monitor PO intake here. Consult palliative care. (8) Type II diabetes mellitus with complication, uncontrolled: Status: Chronic Assessment and plan: Cover with SSI while in the hospital. Will decrease long acting insulin dose while NPO. (9) DVT prophylaxis: Status: Acute Assessment and plan: SCDs. Hold chemical DVT ppx in setting of active bleeding (10) Discharge planning issues: Status: Acute Assessment and plan: DNR/DNI. Palliative care consulted. Patient is considered a PUI for COVID-19 at this time due to a possible exposure to COVID-19 at the [facility]. History of Present Illness History of Present Illness Chief Complaint: Hematemesis Narrative: Ms Angela is an 80 year old female with PMHx of IDDM2, schizophrenia, dementia, prior UTIs, who was brought to [facility] ED from the [facility] where she resides after being witnessed to have two episodes of coffee-ground emesis and having very poor PO intake for the last week. She is hemodynamically stable in the ED. She was hemoccult negative on rectal exam in the ED. Her hemoglobin was 7.7, down from 10-11 in 01/01. 1 unit of blood was ordered. She was also found to have a UTI by UA. She was treated with an octreotide bolus as well as with IV protonix. She was given a dose of empiric ceftriaxone for the UTI. The patient is not a good history provider and is unable to consent to procedures. Her brother, who spoke with the ED provider, is her guardian and would like for her to get aggressive care. Additionally, there is currently a COVID outbreak at the [facility]. The patient says no when I ask her if she is in pain, but is otherwise not answering any questions. Review of Systems Unobtainable due to mental condition [facility] All Active Problems (Updated 05/06/21 @ 16:41 by Alina Zendejas MD) Constipation (Acute) Nausea & vomiting (Acute) Failure to thrive (Acute) Discharge planning issues (Acute) DVT prophylaxis (Acute) Acute UTI (Acute) Anemia due to acute blood loss (Acute) UGIB (upper gastrointestinal bleed) (Acute) Anemia (Chronic) Altered mental status (Acute) Palliative care patient (Acute) Type II diabetes mellitus with complication, uncontrolled (Chronic) Acute hyperglycemia (Acute) EBN (acute kidney injury) (Acute) Hyperglycemia (Acute) Medical History Dementia Diabetes mellitus type II, controlled, with no complications Schizophrenia Urinary tract infection Surgical History LEFT HIP FRACTURE (03/17/17) S/P NAIL AND FIXATION; DR. PARIS Social History Smoking/Tobacco Use Status: Former Tobacco Use Smoking risk assessment performed?: Yes Alcohol Intake: never Drug use: Never Substance use type: does not use Additional Social history: unable to answer. Meds Allergies and Home Medications Allergies Allergy/AdvReac Type Severity Reaction Status Date / Time No Known Allergies Allergy Unverified 01/01/21 20:57 Home Medications Medication Instructions Recorded Confirmed Type acetaminophen 650 mg PO TID 03/17/17 05/06/21 History cholecalciferol (vitamin D3) 1,000 unit PO DAILY 03/17/17 05/06/21 History olanzapine [Zyprexa] 5 mg PO BID 03/17/17 05/06/21 History sennosides [Senna Laxative] 8.6 mg PO DAILY 03/17/17 05/06/21 History morphine 7.5 mg PO Q4H PRN PRN #10 tab 03/19/17 Rx polyethylene glycol 3350 [Miralax] 17 g PO Q OTHER DAY 01/01/21 05/06/21 History cefpodoxime 100 mg PO BID #14 tab 01/04/21 Rx insulin aspart U-100 [Novolog See Rx Instructions .ROUTE 01/04/21 Rx Flexpen U-100 Insulin] .COMPLEX #3 ml dulaglutide [Trulicity] 3 mg SUBCUT DIRECTED 05/06/21 05/06/21 History insulin glargine [Lantus U-100 100 unit SUBCUT QHS 05/06/21 05/06/21 History Insulin] Exam Narrative Exam Narrative: General: Frail elderly lady who appears comfortable laying on her R side, stereotypic tongue/lip movements of tardive dyskinesia, A&Ox0, minimally verbal Neurological: A&Ox0, answered only one question, not following my commands, no obvious focal deficits Psychiatric: withdrawn, minimally interactive, not agitated Skin: Visible skin dry, intact HEENT: Atraumatic, normocephalic, EOMI, dry MM, tardive dyskinesea, the patient does not open her mouth enough for me to examine her oropharynx, no subman dibular or cervical lymphadenopathy, no goiter or JVD Cardiovascular: RRR, no m/r/g Lungs: CTAB Gastrointestinal: soft, nontender, nondistended Genitourinary: deferred Extremities: no edema BLE's Results Imaging Additional studies: CT head w/o contrast: No acute intracranial findings on this noninfused CT scan of the brain. Involutional change-symmetrical atrophy consistent with this patient's advanced age. CT abdomen/pelvis: 1. Multiple large gallstones. The gallbladder is somewhat distended a measuring 12 x 5 cm but does not appear acutely edematous. Common hepatic duct is not dilated. 2. Multiple pancreatic calcifications consistent with chronic pancreatitis, with the calcifications extending the entire length of the pancreas and associated with significant dilatation of the pancreatic duct, these findings consistent with chronic calcific pancreatitis. There is no obvious acute pancreatitis. 3. Benign right kidney cysts. Small nonobstructive calculi both kidneys. 4. Abundant fecal material noted in the transverse colon and distal with rectal distension 7 x 6 cm. No difficult diverticular disease of the colon evident. The right-side of the colon is collapsed and difficult to evaluate. Appendix is not visualized. 5. Left hip hardware. No osseous lesions nor fractures evident. CXR: No acute pulmonary findings on this single AP portable view of the chest. EKG: HR 102, ST, no acute ischemia Labs Result diagrams: 05/06/21 12:05 05/06/21 12:05 Labs: Laboratory Results - last 24 hr 05/06/21 05/06/21 05/06/21 12:05 12:05 12:05 WBC 14.18 H RBC 4.02 Hgb 7.7 L Hct 28.0 L MCV 69.7 L MCH 19.2 L MCHC 27.5 L RDW 17.5 H Plt Count 647 H MPV 10.6 Immature Gran % 0.6 Neutrophils % 86.1 Lymphocytes % 5.6 Monocytes % 7.5 Eosinophils % 0.0 Basophils % 0.2 Nucleated RBC % 0 Absolute Neutrophils 12.21 H Absolute Lymphocytes 0.79 L Absolute Monocytes 1.06 H Absolute Eosinophils 0.00 Absolute Basophils 0.03 RBC Morphology See Below Polychromasia Present Hypochromasia 1+ Poikilocytosis 1+ Basophilic Stippling 1+ Microcytosis 2+ PT INR VBG Lactate 1.6 H Sodium 145 Potassium 3.8 Chloride 107 Carbon Dioxide 28.8 Anion Gap 9.2 BUN 45 H Creatinine 1.3 H Estimated GFR/1.73 m2 39.31 Glucose 380 H Calcium 9.8 Magnesium 2.5 H Total Bilirubin 0.3 AST 6 L ALT 13 L Alkaline Phosphatase 96 Troponin I < 50 Total Protein 7.7 Albumin 2.9 L Urine Color Urine Clarity Urine pH Ur Specific [place] Urine Protein Urine Ketones Urine Blood Urine Nitrite Urine Bilirubin Urine Urobilinogen Ur Leukocyte Esterase Urine RBC Urine WBC Ur Epithelial Cells Urine Crystals Urine Bacteria Urine Casts Urine Mucus Ur Culture Indicated? Urine Glucose COVID-19 Source Patient ABO/Rh Antibody Screen Crossmatch 05/06/21 05/06/21 05/06/21 12:05 12:05 12:08 WBC RBC Hgb Hct MCV MCH MCHC RDW Plt Count MPV Immature Gran % Neutrophils % Lymphocytes % Monocytes % Eosinophils % Basophils % Nucleated RBC % Absolute Neutrophils Absolute Lymphocytes Absolute Monocytes Absolute Eosinophils Absolute Basophils RBC Morphology Polychromasia Hypochromasia Poikilocytosis Basophilic Stippling Microcytosis PT 10.9 INR 1.1 VBG Lactate Sodium Potassium Chloride Carbon Dioxide Anion Gap BUN Creatinine Estimated GFR/1.73 m2 Glucose Calcium Magnesium Total Bilirubin AST ALT Alkaline Phosphatase Troponin I Total Protein Albumin Urine Color Urine Clarity Urine pH Ur Specific [place] Urine Protein Urine Ketones Urine Blood Urine Nitrite Urine Bilirubin Urine Urobilinogen Ur Leukocyte Esterase Urine RBC Urine WBC Ur Epithelial Cells Urine Crystals Urine Bacteria Urine Casts Urine Mucus Ur Culture Indicated? Urine Glucose COVID-19 Source Nasal/Nares Patient ABO/Rh A Positive Antibody Screen NEGATIVE Crossmatch See Detail 05/06/21 12:20 WBC RBC Hgb Hct MCV MCH MCHC RDW Plt Count MPV Immature Gran % Neutrophils % Lymphocytes % Monocytes % Eosinophils % Basophils % Nucleated RBC % Absolute Neutrophils Absolute Lymphocytes Absolute Monocytes Absolute Eosinophils Absolute Basophils RBC Morphology Polychromasia Hypochromasia Poikilocytosis Basophilic Stippling Microcytosis PT INR VBG Lactate Sodium Potassium Chloride Carbon Dioxide Anion Gap BUN Creatinine Estimated GFR/1.73 m2 Glucose Calcium Magnesium Total Bilirubin AST ALT Alkaline Phosphatase Troponin I Total Protein Albumin Urine Color Yellow Urine Clarity Cloudy Urine pH 8.5 H Ur Specific [place] 1.025 Urine Protein 100 H Urine Ketones 15 H Urine Blood Trace-intact H Urine Nitrite Negative Urine Bilirubin Negative Urine Urobilinogen 0.2 Ur Leukocyte Esterase Moderate H Urine RBC 3-5 H Urine WBC >50 H Ur Epithelial Cells Rare Urine Crystals Few Triple Phos Urine Bacteria Many Urine Casts 3-5 Hyaline Urine Mucus Moderate Ur Culture Indicated? Yes Urine Glucose 500 H COVID-19 Source Patient ABO/Rh Antibody Screen Crossmatch Last Vital Signs Temp 36.3 C L 05/06/21 11:50 Pulse 99 H 05/06/21 12:46 Resp 17 05/06/21 12:50 BP 178/91 H 05/06/21 12:46 Pulse Ox 95 05/06/21 12:50
[2021-05-06] MEDS: cefTRIAXone 1 GM VIAL IM (14:25)
--- NOTE | 2021-05-06 15:54 | W.SURGCON ---
Date of service: 05/06/21 Time of Service: 15:55 Assessment and Plan Assessment and plan (1) UGIB (upper gastrointestinal bleed): Status: Acute Assessment and plan: 80 year old who is admitted for UTI and 2 episodes of hematemesis per the staff at the [facility]. NO further vomiting since being at [facility]. Patient denies vomiting yesterday or today. Patient won't open her eyes when I ask her questions. Stool was hemoccult negative Patient received a unit of blood from the ED. Recommend medical management at this time. History of Present Illness Narrative: From Hospitalist: Ms Angela is an 80 year old female with PMHx of IDDM2, schizophrenia, dementia, prior UTIs, who was brought to [facility] ED from the [facility] where she resides after being witnessed to have two episodes of coffee-ground emesis and having very poor PO intake for the last week. She is hemodynamically stable in the ED. She was hemoccult negative on rectal exam in the ED. Her hemoglobin was 7.7, down from 10-11 in 01/01. 1 unit of blood was ordered. She was also found to have a UTI by UA. She was treated with an octreotide bolus as well as with IV protonix. She was given a dose of empiric ceftriaxone for the UTI. The patient is not a good history provider and is unable to consent to procedures. Her brother, who spoke with the ED provider, is her guardian and would like for her to get aggressive care. Additionally, there is currently a COVID outbreak at the [facility]. The patient is unable to endorse or deny sx at this time. I was consulted for her UGI bleed. Patient has no known history of Cirrhosis and varices. Poor po intake for 2 weeks. Not on anticoagulants. Consults Consult date: 05/06/21 Requesting physician: Alina Zendejas Review of Systems Narrative: Unable to get ROS as patient is not answering my questions PFSH All Active Problems Discharge planning issues (Acute) DVT prophylaxis (Acute) Acute UTI (Acute) Anemia due to acute blood loss (Acute) UGIB (upper gastrointestinal bleed) (Acute) Anemia (Chronic) Altered mental status (Acute) Palliative care patient (Acute) Type II diabetes mellitus with complication, uncontrolled (Chronic) Acute hyperglycemia (Acute) BEN (acute kidney injury) (Acute) Hyperglycemia (Acute) Medical History Dementia Diabetes mellitus type II, controlled, with no complications Schizophrenia Urinary tract infection Surgical History LEFT HIP FRACTURE (03/17/17) S/P NAIL AND FIXATION; DR. PARIS Social History Smoking/Tobacco Use Status: Former Tobacco Use Smoking risk assessment performed?: Yes Alcohol Intake: never Drug use: Never Substance use type: does not use Additional Social history: unable to answer. Exam Const General: comfortable and no acute distress Orientation: other (patient laying on her right side with her eyes closed. ) Limitations: behavioral limitations Resp Effort & Inspection: normal respiratory effort Auscultation: clear to auscultation bilaterally Cardio Rate: regular rate Rhythm: regular rhythm Heart Sounds: no gallops, no murmurs and no rubs GI Palpation: soft, no hepatosplenomegaly and nontender Auscultation: normal bowel sounds Results Last Vital Signs Temp 99.1 F 05/06/21 15:33 Pulse 106 H 05/06/21 15:33 Resp 17 05/06/21 15:33 BP 113/62 05/06/21 15:33 Pulse Ox 94 05/06/21 15:33 Labs Result diagrams: 05/06/21 12:05 05/06/21 12:05 Labs: Laboratory Results - last 24 hr 05/06/21 05/06/21 05/06/21 12:05 12:05 12:05 WBC 14.18 H RBC 4.02 Hgb 7.7 L Hct 28.0 L MCV 69.7 L MCH 19.2 L MCHC 27.5 L RDW 17.5 H Plt Count 647 H MPV 10.6 Immature Gran % 0.6 Neutrophils % 86.1 Lymphocytes % 5.6 Monocytes % 7.5 Eosinophils % 0.0 Basophils % 0.2 Nucleated RBC % 0 Absolute Neutrophils 12.21 H Absolute Lymphocytes 0.79 L Absolute Monocytes 1.06 H Absolute Eosinophils 0.00 Absolute Basophils 0.03 RBC Morphology See Below Polychromasia Present Hypochromasia 1+ Poikilocytosis 1+ Basophilic Stippling 1+ Microcytosis 2+ PT INR VBG Lactate 1.6 H Sodium 145 Potassium 3.8 Chloride 107 Carbon Dioxide 28.8 Anion Gap 9.2 BUN 45 H Creatinine 1.3 H Estimated GFR/1.73 m2 39.31 Glucose 380 H Calcium 9.8 Magnesium 2.5 H Total Bilirubin 0.3 AST 6 L ALT 13 L Alkaline Phosphatase 96 Troponin I < 50 Total Protein 7.7 Albumin 2.9 L Urine Color Urine Clarity Urine pH Ur Specific [place] Urine Protein Urine Ketones Urine Blood Urine Nitrite Urine Bilirubin Urine Urobilinogen Ur Leukocyte Esterase Urine RBC Urine WBC Ur Epithelial Cells Urine Crystals Urine Bacteria Urine Casts Urine Mucus Ur Culture Indicated? Urine Glucose COVID-19 Source Path Cons Comment Patient ABO/Rh Antibody Screen Crossmatch 05/06/21 05/06/21 05/06/21 12:05 12:05 12:08 WBC RBC Hgb Hct MCV MCH MCHC RDW Plt Count MPV Immature Gran % Neutrophils % Lymphocytes % Monocytes % Eosinophils % Basophils % Nucleated RBC % Absolute Neutrophils Absolute Lymphocytes Absolute Monocytes Absolute Eosinophils Absolute Basophils RBC Morphology Polychromasia Hypochromasia Poikilocytosis Basophilic Stippling Microcytosis PT 10.9 INR 1.1 VBG Lactate Sodium Potassium Chloride Carbon Dioxide Anion Gap BUN Creatinine Estimated GFR/1.73 m2 Glucose Calcium Magnesium Total Bilirubin AST ALT Alkaline Phosphatase Troponin I Total Protein Albumin Urine Color Urine Clarity Urine pH Ur Specific [place] Urine Protein Urine Ketones Urine Blood Urine Nitrite Urine Bilirubin Urine Urobilinogen Ur Leukocyte Esterase Urine RBC Urine WBC Ur Epithelial Cells Urine Crystals Urine Bacteria Urine Casts Urine Mucus Ur Culture Indicated? Urine Glucose COVID-19 Source Nasal/Nares Path Cons Comment Patient ABO/Rh A Positive Antibody Screen NEGATIVE Crossmatch See Detail 05/06/21 12:20 WBC RBC Hgb Hct MCV MCH MCHC RDW Plt Count MPV Immature Gran % Neutrophils % Lymphocytes % Monocytes % Eosinophils % Basophils % Nucleated RBC % Absolute Neutrophils Absolute Lymphocytes Absolute Monocytes Absolute Eosinophils Absolute Basophils RBC Morphology Polychromasia Hypochromasia Poikilocytosis Basophilic Stippling Microcytosis PT INR VBG Lactate Sodium Potassium Chloride Carbon Dioxide Anion Gap BUN Creatinine Estimated GFR/1.73 m2 Glucose Calcium Magnesium Total Bilirubin AST ALT Alkaline Phosphatase Troponin I Total Protein Albumin Urine Color Yellow Urine Clarity Cloudy Urine pH 8.5 H Ur Specific [place] 1.025 Urine Protein 100 H Urine Ketones 15 H Urine Blood Trace-intact H Urine Nitrite Negative Urine Bilirubin Negative Urine Urobilinogen 0.2 Ur Leukocyte Esterase Moderate H Urine RBC 3-5 H Urine WBC >50 H Ur Epithelial Cells Rare Urine Crystals Few Triple Phos Urine Bacteria Many Urine Casts 3-5 Hyaline Urine Mucus Moderate Ur Culture Indicated? Yes Urine Glucose 500 H COVID-19 Source Path Cons Comment Patient ABO/Rh Antibody Screen Crossmatch
[2021-05-06 16:26] LABS: Iron 15 ug/dL (50-170); Total Iron Binding Capacity 317 ug/dL (250-450); Transferrin Sat 5 % (15-50)
[2021-05-06 16:46] LABS: Ferritin 19 ng/mL (8-252); Folate 8.7 ng/mL (8.6-20.0); Vitamin B12 849 pg/mL (193-986)
[2021-05-06 17:18] LABS: Source Nasal/Nares
[2021-05-06] MEDS: Insulin Aspart 300 UNITS/3 ML PEN SC ×2 (17:44→22:37)
[2021-05-06 18:00] LABS: COVID-19 PCR POSITIVE (Negative)
[2021-05-06 18:52] LABS: Lipase 126 U/L (73-393)
--- NOTE | 2021-05-06 20:42 | W.PALLCONSUL ---
Date of service: 05/06/21 Time of Service: 18:42 History of Present Illness History of Present Illness Chief Complaint: bloody emesis times 2 Narrative: Paulette Angela is an 80-year-old resident at the [facility]. Past medical history is significant for schizophrenia, diabetes, anemia. She was in her normal state of health at the [facility] and was recently tested 2-3 times negative for Covid. She is not communicative with others. She does sit for long periods of time Today Paulette was at the [facility] where she had coffee-ground emesis x2. Although she is a DNR/DNI, treatment was still wanted by family. She was transferred to the hospital, found to have hemoglobin of 7+. She was admitted for further care with the expectation that she would receive a unit of blood and endoscopy to determine the cause of her bleeding. She was again tested for Covid but this time was positive. She was also found to have significant stool. She had just received an enema prior to me seeing her Paulette did talk to me it was a greeting of sorts. Soon after this she closed her eyes and seemed tired Consults Consult date: 05/06/21 Requesting physician: Alina Zendejas Assessment and Plan Assessment and plan (1) Constipation: Status: Acute Assessment and plan: enema done prior to my visit (2) UGIB (upper gastrointestinal bleed): Status: Acute Assessment and plan: probable endoscopy if H/H stablizes; She is on all the appropriate meds for her GI bleed (3) Type II diabetes mellitus with complication, uncontrolled: Status: Chronic Assessment and plan: covered with insulin and regular FS (4) Palliative care patient: Status: Acute Assessment and plan: Her brother needs a long time to process information. He wants the best for his sister, but needs information to be explained slowly and carefully. He has stated he wants Paulette to be taken care of, but also states she is a DNR/DNI. I am happy to reach out to him and also TAYA Denis from the [facility] after we see how the evening goes. She seems very comfortable at this time. Await Surgical eval Review of Systems Unobtainable due to mental condition (most obtained from TAYA Denis at [facility] and notes) Gastrointestinal Gastrointestinal: Reports coffee ground emesis Psychiatric Comments: Schizophrenia baseline PFSH All Active Problems (Updated 05/06/21 @ 16:41 by Alina Zendejas MD) Constipation (Acute) Nausea & vomiting (Acute) Failure to thrive (Acute) Discharge planning issues (Acute) DVT prophylaxis (Acute) Acute UTI (Acute) Anemia due to acute blood loss (Acute) UGIB (upper gastrointestinal bleed) (Acute) Anemia (Chronic) Altered mental status (Acute) Palliative care patient (Acute) Type II diabetes mellitus with complication, uncontrolled (Chronic) Acute hyperglycemia (Acute) BEN (acute kidney injury) (Acute) Hyperglycemia (Acute) Medical History Dementia Diabetes mellitus type II, controlled, with no complications Schizophrenia Urinary tract infection Surgical History LEFT HIP FRACTURE (03/17/17) S/P NAIL AND FIXATION; DR. PARIS Social History Smoking/Tobacco Use Status: Former Tobacco Use Smoking risk assessment performed?: Yes Alcohol Intake: never Drug use: Never Substance use type: does not use Additional Social history: unable to answer. Exam Narrative Exam Narrative: Lying in bed, looked peaceful Eyes General: appearance normal, both eyes and all related structures Neck Neck: no lymphadenopathy and no meningeal signs Resp Effort & Inspection: normal respiratory effort Auscultation: diminished lung sounds Cardio Rate: regular rate GI Palpation: soft and no hepatosplenomegaly Percussion: normal to percussion Auscultation: normal bowel sounds Psych Appearance: other (tired) Results Last Vital Signs Temp 97.5 F L 05/06/21 18:17 Pulse 103 H 05/06/21 18:17 Resp 12 05/06/21 18:17 BP 128/73 05/06/21 18:17 Pulse Ox 97 05/06/21 18:17 Abd/Pelvis INDINGS: VISUALIZED LUNG BASES: There is trace pleural fluid on the right side.. ABDOMEN: Esophagus wall appears thickened at the GE junction, possibly significant. There is no adjacent lymphadenopathy. There is no ascites. LIVER: There are no focal hepatic lesions evident . GALLBLADDER/BILIARY: Multiple large facet it gallstones are noted in the gallbladder lumen. The largest of these is a measures 2.5 x 1.8 cm. Gallbladder somewhat distended, measuring 12 cm length by 5 cm wide. However, the gallbladder wall is not edematous and there is no pericholecystic fluid. CBD is not dilated. PANCREAS: There are multiple parenchymal calcifications noted throughout the entire length of the pancreas. Largest of these are in the pancreatic head and uncinate process, these calcifications ranging up to 1.2 by 1.1 cm size. The pancreatic duct is dilated. Cannot exclude subtle pancreatic lesion. SPLEEN: Spleen is not enlarged. No obvious intrasplenic lesions. Splenic and portal veins are patent. ADRENALS: There are no significant adrenal masses. KIDNEYS:There are multiple cysts in the right kidney. Largest of these measures 1.5 x 1.5 cm. No solid lesions in either kidney. Small nonobstructive calculi in each kidney. Ureters are not dilated.. ABDOMINAL AORTA: Calcified but not enlarged. LYMPH NODES:There is no retroperitoneal nor paraaortic adenopathy. ABDOMINAL WALL: No evidence of significant anterior abdominal wall nor inguinal hernia. GI: There is no evidence of bowel obstruction, free air, nor abscess. Right-side of the colon is collapsed. In the left side of the abdomen there are few slightly prominent small bowel loops ranging up to 2.8 cm diameter. Do not exhibit bowel wall edema. There is abundant fecal material in the transverse colon, splenic flexure, and descending-left colon. No diverticuli. Moderate amount of fecal material throughout the rectosigmoid and there is rectal fecal distension with the rectum exhibiting diameter of 7 by 6.5 cm. PELVIS: GI: Appendix not identified.No evidence of sigmoid diverticulitis. LYMPH NODES: There is no intrapelvic nor inguinal adenopathy. REPRODUCTIVE: Uterus and adnexal regions appear unremarkable. No free fluid. URINARY BLADDER: Somewhat irregular wall on the right side. OSSEOUS: Left hip hardware. No osseous lesions. No fractures evident. IMPRESSION: 1. Multiple large gallstones. The gallbladder is somewhat distended a measuring 12 x 5 cm but does not appear acutely edematous. Common hepatic duct is not dilated. 2. Multiple pancreatic calcifications consistent with chronic pancreatitis, with the calcifications extending the entire length of the pancreas and associated with significant dilatation of the pancreatic duct, these findings consistent with chronic calcific pancreatitis. There is no obvious acute pancreatitis. 3. Benign right kidney cysts. Small nonobstructive calculi both kidneys. 4. 4. Abundant fecal material noted in the transverse colon and distal with rectal distension 7 x 6 cm. No difficult diverticular disease of the colon evident. The right-side of the colon is collapsed and difficult to evaluate. Appendix is not visualized. 5. Left hip hardware. No osseous lesions nor fractures evident. Labs Result diagrams: 05/06/21 12:05 05/06/21 12:05 Labs: Laboratory Results - last 24 hr 05/06/21 05/06/21 05/06/21 12:05 12:05 12:05 WBC 14.18 H RBC 4.02 Hgb 7.7 L Hct 28.0 L MCV 69.7 L MCH 19.2 L MCHC 27.5 L RDW 17.5 H Plt Count 647 H MPV 10.6 Immature Gran % 0.6 Neutrophils % 86.1 Lymphocytes % 5.6 Monocytes % 7.5 Eosinophils % 0.0 Basophils % 0.2 Nucleated RBC % 0 Absolute Neutrophils 12.21 H Absolute Lymphocytes 0.79 L Absolute Monocytes 1.06 H Absolute Eosinophils 0.00 Absolute Basophils 0.03 RBC Morphology See Below Polychromasia Present Hypochromasia 1+ Poikilocytosis 1+ Basophilic Stippling 1+ Microcytosis 2+ PT INR VBG Lactate 1.6 H Sodium 145 Potassium 3.8 Chloride 107 Carbon Dioxide 28.8 Anion Gap 9.2 BUN 45 H Creatinine 1.3 H Estimated GFR/1.73 m2 39.31 Glucose 380 H Calcium 9.8 Magnesium 2.5 H Iron TIBC Transferrin % Sat Ferritin Total Bilirubin 0.3 AST 6 L ALT 13 L Alkaline Phosphatase 96 Troponin I < 50 Total Protein 7.7 Albumin 2.9 L Lipase Vitamin B12 Folate Urine Color Urine Clarity Urine pH Ur Specific [place] Urine Protein Urine Ketones Urine Blood Urine Nitrite Urine Bilirubin Urine Urobilinogen Ur Leukocyte Esterase Urine RBC Urine WBC Ur Epithelial Cells Urine Crystals Urine Bacteria Urine Casts Urine Mucus Ur Culture Indicated? Urine Glucose COVID-19 Source SARS-CoV-2 (PCR) Path Cons Comment Patient ABO/Rh Antibody Screen Crossmatch 05/06/21 05/06/21 05/06/21 12:05 12:05 12:05 WBC RBC Hgb Hct MCV MCH MCHC RDW Plt Count MPV Immature Gran % Neutrophils % Lymphocytes % Monocytes % Eosinophils % Basophils % Nucleated RBC % Absolute Neutrophils Absolute Lymphocytes Absolute Monocytes Absolute Eosinophils Absolute Basophils RBC Morphology Polychromasia Hypochromasia Poikilocytosis Basophilic Stippling Microcytosis PT 10.9 INR 1.1 VBG Lactate Sodium Potassium Chloride Carbon Dioxide Anion Gap BUN Creatinine Estimated GFR/1.73 m2 Glucose Calcium Magnesium Iron TIBC Transferrin % Sat Ferritin 19 Total Bilirubin AST ALT Alkaline Phosphatase Troponin I Total Protein Albumin Lipase Vitamin B12 849 Folate 8.7 Urine Color Urine Clarity Urine pH Ur Specific [place] Urine Protein Urine Ketones Urine Blood Urine Nitrite Urine Bilirubin Urine Urobilinogen Ur Leukocyte Esterase Urine RBC Urine WBC Ur Epithelial Cells Urine Crystals Urine Bacteria Urine Casts Urine Mucus Ur Culture Indicated? Urine Glucose COVID-19 Source SARS-CoV-2 (PCR) Path Cons Comment Patient ABO/Rh A Positive Antibody Screen NEGATIVE Crossmatch See Detail 05/06/21 05/06/21 05/06/21 12:05 12:05 12:08 WBC RBC Hgb Hct MCV MCH MCHC RDW Plt Count MPV Immature Gran % Neutrophils % Lymphocytes % Monocytes % Eosinophils % Basophils % Nucleated RBC % Absolute Neutrophils Absolute Lymphocytes Absolute Monocytes Absolute Eosinophils Absolute Basophils RBC Morphology Polychromasia Hypochromasia Poikilocytosis Basophilic Stippling Microcytosis PT INR VBG Lactate Sodium Potassium Chloride Carbon Dioxide Anion Gap BUN Creatinine Estimated GFR/1.73 m2 Glucose Calcium Magnesium Iron 15 L TIBC 317 Transferrin % Sat 5 L Ferritin Total Bilirubin AST ALT Alkaline Phosphatase Troponin I Total Protein Albumin Lipase 126 Vitamin B12 Folate Urine Color Urine Clarity Urine pH Ur Specific [place] Urine Protein Urine Ketones Urine Blood Urine Nitrite Urine Bilirubin Urine Urobilinogen Ur Leukocyte Esterase Urine RBC Urine WBC Ur Epithelial Cells Urine Crystals Urine Bacteria Urine Casts Urine Mucus Ur Culture Indicated? Urine Glucose COVID-19 Source Cancelled SARS-CoV-2 (PCR) Cancelled Path Cons Comment Patient ABO/Rh Antibody Screen Crossmatch 05/06/21 05/06/21 05/06/21 12:08 12:20 18:00 WBC RBC Hgb Cancelled Hct Cancelled MCV MCH MCHC RDW Plt Count MPV Immature Gran % Neutrophils % Lymphocytes % Monocytes % Eosinophils % Basophils % Nucleated RBC % Absolute Neutrophils Absolute Lymphocytes Absolute Monocytes Absolute Eosinophils Absolute Basophils RBC Morphology Polychromasia Hypochromasia Poikilocytosis Basophilic Stippling Microcytosis PT INR VBG Lactate Sodium Potassium Chloride Carbon Dioxide Anion Gap BUN Creatinine Estimated GFR/1.73 m2 Glucose Calcium Magnesium Iron TIBC Transferrin % Sat Ferritin Total Bilirubin AST ALT Alkaline Phosphatase Troponin I Total Protein Albumin Lipase Vitamin B12 Folate Urine Color Yellow Urine Clarity Cloudy Urine pH 8.5 H Ur Specific [place] 1.025 Urine Protein 100 H Urine Ketones 15 H Urine Blood Trace-intact H Urine Nitrite Negative Urine Bilirubin Negative Urine Urobilinogen 0.2 Ur Leukocyte Esterase Moderate H Urine RBC 3-5 H Urine WBC >50 H Ur Epithelial Cells Rare Urine Crystals Few Triple Phos Urine Bacteria Many Urine Casts 3-5 Hyaline Urine Mucus Moderate Ur Culture Indicated? Yes Urine Glucose 500 H COVID-19 Source Nasal/Nares SARS-CoV-2 (PCR) POSITIVE A* Path Cons Comment Patient ABO/Rh Antibody Screen Crossmatch
[2021-05-06] MEDS: Lactated Ringers 1,000 ML 75 ML IV (21:28)
[2021-05-06 21:53] LABS: HCT 34.3 % (36.0-46.0); HGB 9.9 g/dL (11.2-15.7)
[2021-05-06] MEDS: Insulin Glargine 300 UNITS/3 ML PEN 40 UNITS SC (22:38)
[2021-05-07] VITALS (11 sets, daily range): BP systolic 107–139; BP diastolic 52–74; PULSE 83–100; RESP 12–19; TEMP 36.3–38.5; O2SAT 92–97
[2021-05-07 07:19] LABS: Abs Immature Grans 0.09 10^3/uL (0.0-0.06); Absolute Eosinophil Count 0.01 10^3/uL (0.0-0.7); Absolute Lymphocyte Count 1.72 10^3/uL (1.2-3.4); Absolute Neutrophil Count 11.36 10^3/uL (1.2-6.7); Basophils % 0.3; Eosinophils % 0.1; HCT 30.8 % (36.0-46.0); HGB 8.8 g/dL (11.2-15.7); Immature Grans % 0.6; Lymphocytes % 11.7; MCH 20.8 pg (27.0-33.0); MCHC 28.6 % (32.0-36.0); MCV 72.6 fL (80-95); MPV 10.7 fL (8.0-11.0); Monocytes % 9.8; Neutrophils % 77.5; Nucleated RBC 0 %; Platelet Count 570 10^3/uL (130-400); RBC 4.24 10^6/uL (3.93-5.22); RDW 18.8 % (11.7-14.6); RDW-SD 48.2 fL; WBC 14.66 10^3/uL (4.4-10.8)
[2021-05-07 07:28] LABS: Absolute Basophil Count 0.04 10^3/uL (0.0-0.2); Absolute Monocyte Count 1.44 10^3/uL (0.1-0.8)
[2021-05-07 07:42] LABS: Anion Gap 10.3 mmol/L (3-11); BUN 34 mg/dL (7-18); CO2 26.7 mmol/L (21.0-32.0); CREATININE 1.1 mg/dL (0.55-1.02); Calcium 9.4 mg/dL (8.5-10.1); Chloride 117 mmol/L (98-107); Estimated GFR 47.67 (mL/min/1.73m2); Glucose 95 mg/dL (74-106); Magnesium 2.4 mg/dL (1.8-2.4); Potassium 3.5 mmol/L (3.5-5.1); Sodium 154 mmol/L (136-145)
[2021-05-07] MEDS: Normal Saline Flush 10 ML SYR IVP ×2 (08:33→21:21)
[2021-05-07] MEDS: Pantoprazole 40 MG VIAL 80 MG IVP ×2 (08:33→21:20)
[2021-05-07] MEDS: Senna TAB 1 TAB PO (08:33)
[2021-05-07] MEDS: IRON SUCROSE COMPLEX 200 MG in Normal Saline 100 ML 400 MG IVPB (10:29)
[2021-05-07] MEDS: REMDESIVIR 200 MG in Normal Saline 250 ML 250 MG IVPB (10:52)
[2021-05-07 12:37] LABS: Anion Gap 9.8 mmol/L (3-11); BUN 32 mg/dL (7-18); CO2 26.2 mmol/L (21.0-32.0); CREATININE 1.1 mg/dL (0.55-1.02); Calcium 9.4 mg/dL (8.5-10.1); Chloride 121 mmol/L (98-107); Estimated GFR 47.67 (mL/min/1.73m2); Glucose 86 mg/dL (74-106); Potassium 4.1 mmol/L (3.5-5.1)
[2021-05-07 12:49] LABS: Sodium 157 mmol/L (136-145)
[2021-05-07] MEDS: DEXTROSE 5%-WATER 1,000 ML 75 ML IV (12:59)
[2021-05-07] MEDS: cefTRIAXone 1 GM/50 ML BAG IVPB (14:30)
--- NOTE | 2021-05-07 16:45 | W.PM.PROGNOT ---
Date of Service Date of service: 05/07/21 Time of Service: 16:45 Assessment and Plan Assessment and plan (1) UGIB (upper gastrointestinal bleed): Status: Acute Assessment and plan: Treating medically. No plans for endoscopy given COVID-19. Treat with IV protonix, carafate. Started on clear liquids. (2) COVID-19: Status: Acute Assessment and plan: Not requiring O2. Started on remdesivir. Monitor inflammatory markers. (3) Dehydration: Status: Acute Assessment and plan: With hypernatremia. On D5W - monitor serial sodiums. (4) Anemia due to acute blood loss: Status: Acute Assessment and plan: As above S/p 1 unit pRBCs on day of admission. Hemoglobin is 8.8 this am. Will continue to monitor. Some of this anemia is also dilutional. Received IV iron today. Will treat GI bleed, trend H/H. Replete folic acid. (5) Acute UTI: Status: Acute Assessment and plan: Due to proteus spp, present on admission. Continue ceftriaxone. Await speciation. (6) Nausea & vomiting: Status: Resolved Assessment and plan: CT abdomen/pelvis demonstrates cholelithiasis without cholecystitis as well as changes of chronic pancreatitis. Additionally, there is also evidence of constipation and fecal impaction. I do not feel that clinically the patient has either acute pancreatitis or cholecystitis. Constipation has resolved. Prn antiemetics ordered. (7) Altered mental status: Status: Acute Assessment and plan: The patient has a basline diagnosis of dementia as well as h/o schizophrenia and has a UTI, currently. Her mental status seems to be a little better today - she is a little bit more talkative, less withdrawn. Continue to monitor. Resume home psychiatric meds. (8) Constipation: Status: Resolved Assessment and plan: Continue bowel regimen. (9) Failure to thrive: Status: Acute Assessment and plan: Decreased PO intake over 1 week. Could be situational due to constipation, n/v, UTI, COVID-19. Palliative care following. Refusing PO at this time. (10) Type II diabetes mellitus with complication, uncontrolled: Status: Chronic Assessment and plan: Cover with SSI while in the hospital. Continue decreased dose of lantus. On D5 fluids. (11) DVT prophylaxis: Status: Acute Assessment and plan: SCDs. Hold chemical DVT ppx in setting of active bleeding (12) Discharge planning issues: Status: Acute Assessment and plan: DNR/DNI. Palliative care consulted. . Subjective Subjective Interval history since last seen: Ms Angela states she is not in pain. She is not interested in drinking or eating. She states she is not hungry. She denied dizziness, chest pain, shortness of breath. Per general surgery, we will treat her medically. She tested positive for COVID-19. She is not requiring oxygen. She had a large BM after the enema yesterday. Exam Narrative Exam Narrative: General: Frail elderly female who does not want to engage in conversation, short answers, A&Ox1, laying on her right side, appears comfortable HEENT: EOMI, dry MM Cardiovascular: RRR, no m/r/g Lungs: CTAB Gastrointestinal: soft, nontender, nondistended Extremities: no edema BLE's Objective Last Vital Signs Temp 36.9 C 05/07/21 12:30 Pulse 96 H 05/07/21 15:22 Resp 12 05/07/21 12:30 BP 129/66 05/07/21 12:30 Pulse Ox 93 05/07/21 12:30 Laboratory Results - last 24 hr 05/06/21 05/06/21 05/06/21 12:05 12:05 12:05 WBC RBC Hgb Hct MCV MCH MCHC RDW Plt Count MPV Immature Gran % Neutrophils % Lymphocytes % Monocytes % Eosinophils % Basophils % Nucleated RBC % Absolute Neutrophils Absolute Lymphocytes Absolute Monocytes Absolute Eosinophils Absolute Basophils Sodium Potassium Chloride Carbon Dioxide Anion Gap BUN Creatinine Estimated GFR/1.73 m2 Glucose Calcium Magnesium Ferritin 19 Lipase 126 Vitamin B12 849 Folate 8.7 COVID-19 Source SARS-CoV-2 (PCR) Crossmatch See Detail 05/06/21 05/06/21 05/06/21 12:08 12:08 18:00 WBC RBC Hgb Cancelled Hct Cancelled MCV MCH MCHC RDW Plt Count MPV Immature Gran % Neutrophils % Lymphocytes % Monocytes % Eosinophils % Basophils % Nucleated RBC % Absolute Neutrophils Absolute Lymphocytes Absolute Monocytes Absolute Eosinophils Absolute Basophils Sodium Potassium Chloride Carbon Dioxide Anion Gap BUN Creatinine Estimated GFR/1.73 m2 Glucose Calcium Magnesium Ferritin Lipase Vitamin B12 Folate COVID-19 Source Cancelled Nasal/Nares SARS-CoV-2 (PCR) Cancelled POSITIVE A* Crossmatch 05/06/21 05/07/2105/07/22 21:46 07:02 07:02 WBC 14.66 H RBC 4.24 Hgb 9.9 L D 8.8 L Hct 34.3 L D 30.8 L MCV 72.6 L MCH 20.8 L MCHC 28.6 L RDW 18.8 H Plt Count 570 H MPV 10.7 Immature Gran % 0.6 Neutrophils % 77.5 Lymphocytes % 11.7 Monocytes % 9.8 Eosinophils % 0.1 Basophils % 0.3 Nucleated RBC % 0 Absolute Neutrophils 11.36 H Absolute Lymphocytes 1.72 Absolute Monocytes 1.44 H Absolute Eosinophils 0.01 Absolute Basophils 0.04 Sodium 154 H Potassium 3.5 Chloride 117 H Carbon Dioxide 26.7 Anion Gap 10.3 BUN 34 H D Creatinine 1.1 H Estimated GFR/1.73 m2 47.67 Glucose 95 D Calcium 9.4 Magnesium 2.4 Ferritin Lipase Vitamin B12 Folate COVID-19 Source SARS-CoV-2 (PCR) Crossmatch 05/07/21 12:07 WBC RBC Hgb Hct MCV MCH MCHC RDW Plt Count MPV Immature Gran % Neutrophils % Lymphocytes % Monocytes % Eosinophils % Basophils % Nucleated RBC % Absolute Neutrophils Absolute Lymphocytes Absolute Monocytes Absolute Eosinophils Absolute Basophils Sodium 157 H* Potassium 4.1 Chloride 121 H Carbon Dioxide 26.2 Anion Gap 9.8 BUN 32 H Creatinine 1.1 H Estimated GFR/1.73 m2 47.67 Glucose 86 Calcium 9.4 Magnesium Ferritin Lipase Vitamin B12 Folate COVID-19 Source SARS-CoV-2 (PCR) Crossmatch
[2021-05-07] MEDS: ACETAMINOPHEN 1,000 MG/100 ML BTL 400 MG IVPB (18:13)
[2021-05-07 18:29] LABS: Anion Gap 9.5 mmol/L (3-11); BUN 27 mg/dL (7-18); CO2 26.5 mmol/L (21.0-32.0); CREATININE 1.2 mg/dL (0.55-1.02); Calcium 9.2 mg/dL (8.5-10.1); Chloride 117 mmol/L (98-107); Estimated GFR 43.12 (mL/min/1.73m2); Glucose 91 mg/dL (74-106); Potassium 3.5 mmol/L (3.5-5.1); Sodium 153 mmol/L (136-145)
--- NOTE | 2021-05-07 18:37 | PDOC.CMIN ---
- If Service Date Differs Date of service: 05/07/21 Time of Service: 18:37 Care Management Initial Assess REASON FOR HOSPITALIZATION:: Upper GI bleeding, anemia, UTI PAST MEDICAL HISTORY/PAST SURGICAL HISTORY:: All Active Problems. Constipation (Acute). Nausea & vomiting (Acute). Failure to thrive (Acute). Discharge planning issues (Acute). DVT prophylaxis (Acute). Acute UTI (Acute). Anemia due to acute blood loss (Acute). UGIB (upper gastrointestinal bleed) (Acute). Anemia (Chronic). Altered mental status (Acute). Palliative care patient (Acute). Type II diabetes mellitus with complication, uncontrolled (Chronic). Acute hyperglycemia (Acute). BEN (acute kidney injury) (Acute). Hyperglycemia (Acute). Medical History. Dementia. Diabetes mellitus type II, controlled, with no complications. Schizophrenia. Urinary tract infection. Surgical History. LEFT HIP FRACTURE (03/17/17). S/P NAIL AND FIXATION; DR. PARIS PREVIOUS FUNCTIONAL STATUS/SOCIAL/FAMILY SUPPORTS:: Paulette resides at the [facility] in [place], which is laborer [facility] terminal placement. Her brother, Navi, lives in [place] and has been appointed her guardian. Per report she is only oriented to self. CURRENT FUNCTIONAL STATUS:: Paulette is under Covid 19 precautions, therefore CM was unable to meet with her in person. CM attempted to contact Pualette by phone without success. Per report, she is only oriented to self. She had a surgical consultation, who recommended medical management of her UGI bleed at this time. Per report, her brother (also guardian) had advocated for aggressive care while she was in the ED. Palliative Care has been consulted and is following. CM will continue to follow. ADVANCE DIRECTIVES:: [employer] on file, as well as Guardianship paperwork. Has patient been provided with info about the portal/API?: No Did the patient sign up for the portal?: No CODE STATUS:: DNR/DNI INSURANCE COVERAGE / FINANCIAL ISSUES:: [facility]/ [employer]/ [employer] CURRENT HOME/COMMUNITY SERVICES/EQUIPMENT:: Paulette resides at the [facility] where her needs are met. PRIMARY CARE PHYSICIAN:: Yumiko Israel POTENTIAL DISCHARGE NEEDS:: Coordinated return to the [facility]. PATIENT/FAMILY EDUCATION NEEDS:: Review discharge recommendations, discussion of goals of care with Guardian. ANTICIPATED BARRIERS TO DISCHARGE:: None identified at this time. TRANSPORTATION:: Anticipate EMS transport, [facility], if available. PLAN:: Anticipate Paulette will return to the [facility] when medically cleared. CM will coordinate transport, likely EMS. She will follow up with the facility provider and her discharge plan of care. CM will continue to follow.
[2021-05-07] MEDS: Insulin Glargine 300 UNITS/3 ML PEN 40 UNITS SC (21:29)
[2021-05-08] VITALS (9 sets, daily range): BP systolic 101–136; BP diastolic 51–70; PULSE 64–82; RESP 16–19; TEMP 35.5–37.8; O2SAT 94–97
--- NOTE | 2021-05-08 00:14 | PGE_ITS ---
Date of Service Date of service: 05/08/21 Time of Service: 00:15 Assessment and Plan Assessment and plan (1) COVID-19: Status: Acute (2) Anemia due to acute blood loss: Status: Acute Assessment and plan: I did review the case with Dr. Zendejas. Today she will continue to the next remove medically treat medically with protonic and Marcie fate. States due to her COVID-19 diagnosis, I do not think patient would tolerate an EGD. She has no pulmonary reserve and is not a candidate for anesthesia. We will reevaluate at your request (3) Type II diabetes mellitus with complication, uncontrolled: Status: Chronic (4) Acute hyperglycemia: Status: Acute (5) Sepsis syndrome: Status: Resolved (6) BEN (acute kidney injury): Status: Acute (7) Diabetes mellitus type II, controlled, with no complications: (8) Schizophrenia: Qualifiers: Schizophrenia type: disorganized schizophrenia Qualified Code(s): F20.1 - Disorganized schizophrenia (9) Dementia: Subjective Subjective Interval history since last seen: Patient hemoglobin has Been stable in the past 24 hours. She has not had a melanotic stool in the past 24 hours. Objective Last Vital Signs Temp 37.2 C 05/07/21 21:14 Pulse 83 05/07/21 21:14 Resp 19 05/07/21 21:14 BP 125/52 L 05/07/21 21:14 Pulse Ox 92 05/07/21 21:14 Laboratory Results - last 24 hr 05/07/21 05/07/21 05/07/21 07:02 07:02 12:07 WBC 14.66 H RBC 4.24 Hgb 8.8 L Hct 30.8 L MCV 72.6 L MCH 20.8 L MCHC 28.6 L RDW 18.8 H Plt Count 570 H MPV 10.7 Immature Gran % 0.6 Neutrophils % 77.5 Lymphocytes % 11.7 Monocytes % 9.8 Eosinophils % 0.1 Basophils % 0.3 Nucleated RBC % 0 Absolute Neutrophils 11.36 H Absolute Lymphocytes 1.72 Absolute Monocytes 1.44 H Absolute Eosinophils 0.01 Absolute Basophils 0.04 Sodium 154 H 157 H* Potassium 3.5 4.1 Chloride 117 H 121 H Carbon Dioxide 26.7 26.2 Anion Gap 10.3 9.8 BUN 34 H D 32 H Creatinine 1.1 H 1.1 H Estimated GFR/1.73 m2 47.67 47.67 Glucose 95 D 86 Calcium 9.4 9.4 Magnesium 2.4 05/07/21 18:00 WBC RBC Hgb Hct MCV MCH MCHC RDW Plt Count MPV Immature Gran % Neutrophils % Lymphocytes % Monocytes % Eosinophils % Basophils % Nucleated RBC % Absolute Neutrophils Absolute Lymphocytes Absolute Monocytes Absolute Eosinophils Absolute Basophils Sodium 153 H Potassium 3.5 Chloride 117 H Carbon Dioxide 26.5 Anion Gap 9.5 BUN 27 H Creatinine 1.2 H Estimated GFR/1.73 m2 43.12 Glucose 91 Calcium 9.2 Magnesium
[2021-05-08] MEDS: Normal Saline Flush 10 ML SYR IVP ×6 (03:52→20:00)
[2021-05-08] MEDS: DEXTROSE 5%-WATER 1,000 ML 75 ML IV ×2 (03:52→10:03)
[2021-05-08 07:26] LABS: Abs Immature Grans 0.14 10^3/uL (0.0-0.06); Basophils % 0.4; Eosinophils % 0.1; HCT 30.5 % (36.0-46.0); HGB 8.5 g/dL (11.2-15.7); Lymphocytes % 8.9; MCH 20.6 pg (27.0-33.0); MCHC 27.9 % (32.0-36.0); MCV 73.8 fL (80-95); MPV 11.3 fL (8.0-11.0); Monocytes % 9.9; Neutrophils % 79.7; Nucleated RBC 0 %; Platelet Count 501 10^3/uL (130-400); RBC 4.13 10^6/uL (3.93-5.22); RDW 19.3 % (11.7-14.6); RDW-SD 50.3 fL; WBC 14.09 10^3/uL (4.4-10.8)
[2021-05-08 07:29] LABS: Absolute Basophil Count 0.06 10^3/uL (0.0-0.2); Absolute Eosinophil Count 0.01 10^3/uL (0.0-0.7); Absolute Lymphocyte Count 1.25 10^3/uL (1.2-3.4); Absolute Monocyte Count 1.39 10^3/uL (0.1-0.8); Absolute Neutrophil Count 11.23 10^3/uL (1.2-6.7)
[2021-05-08 07:37] LABS: Diff Comment RBC Morph Reviewed
[2021-05-08 07:38] LABS: Hypochromasia 1+; Microcytosis 2+; Poikilocytes 1+
[2021-05-08 07:47] LABS: ALT 10 U/L (14-59); AST 12 U/L (15-37); Albumin 2.5 g/dL (3.4-5.0); Alkaline Phosphatase 77 U/L (46-116); Anion Gap 9.7 mmol/L (3-11); BUN 28 mg/dL (7-18); Bilirubin, Direct 0.1 mg/dL (0.0-0.2); Bilirubin, Total 0.2 mg/dL (0.2-1.0); C-Reactive Protein 5.14 mg/dL (0.0-0.3); CO2 26.3 mmol/L (21.0-32.0); CREATININE 1.1 mg/dL (0.55-1.02); Calcium 9.2 mg/dL (8.5-10.1); Chloride 114 mmol/L (98-107); Estimated GFR 47.67 (mL/min/1.73m2); Magnesium 2.1 mg/dL (1.8-2.4); PHOSPHORUS 3.2 mg/dL (2.6-4.7); Sodium 150 mmol/L (136-145); Total Protein 6.7 g/dL (6.4-8.2)
[2021-05-08 07:49] LABS: INR 1.1 (0.9-1.1)
[2021-05-08 07:50] LABS: Glucose 48 mg/dL (74-106); Potassium 2.7 mmol/L (3.5-5.1)
[2021-05-08] MEDS: Dextrose 50%-Water 25 GM/50 ML SYR IVP ×5 (08:08→19:59)
[2021-05-08 08:15] LABS: Calculated LDL 94 mg/dL (<100); Cholesterol 152 mg/dL (<200); Ferritin 314 ng/mL (8-252); HDL Cholesterol 40 mg/dL (40-60); Triglyceride 94 mg/dL (<150)
[2021-05-08 08:17] LABS: Procalcitonin 0.2 ng/mL
[2021-05-08] MEDS: Pantoprazole 40 MG VIAL 80 MG IVP (08:23)
[2021-05-08 10:38] LABS: D-Dimer 1805 ng/mlFEU (<500)
[2021-05-08] MEDS: OLANZapine 10 MG VIAL 5 MG IM (10:45)
[2021-05-08] MEDS: POTASSIUM CHLORIDE 20 MEQ/100 ML BAG 50 MEQ IVPB ×4 (10:46→22:46)
[2021-05-08] MEDS: Water,Injection,Sterile 10 ML VIAL (10:46)
[2021-05-08] MEDS: DEXTROSE 10%-WATER 500 ML 100 ML IV ×2 (12:32→23:25)
[2021-05-08] MEDS: REMDESIVIR 100 MG in Normal Saline 250 ML 250 MG IVPB (15:00)
[2021-05-08 15:22] LABS: Sodium 145 mmol/L (136-145)
--- NOTE | 2021-05-08 15:34 | PDOC.CMPRO ---
- If Service Date Differs Date of service: 05/08/21 Time of Service: 15:34 Care Management Progress Note S/O: Paulette remains on Covid 19 precautions therefore CM was unable to meet with her in person. CM called her brother, Navi, who is also her guardian, and left a voicemail, asking him to contact the office to discuss Paulette's discharge plan. Per report, her H&H remains low. She is being medically managed as, per report, she is not a candidate for surgery. Palliative care was consulted for a follow up, and will see her tomorrow. She has not been eating or drinking well during this admission. CM will continue to follow. A: Paulette is an 80 year old female admitted to [facility] on 05/06/21 with an upper GI bleed, anemia, UTI. P: Anticipate Paulette will return to the [facility] when medically cleared. CM will coordinate transport, likely EMS. She will follow up with the facility provider and her discharge plan of care. CM will continue to follow.
--- NOTE | 2021-05-08 16:03 | W.PM.PROGNOT ---
Date of Service Date of service: 05/08/21 Time of Service: 16:03 Assessment and Plan Assessment and plan (1) Hypoglycemia: Status: Acute Assessment and plan: Persistent today. Long acting insulin d/c'ed. Receiving d10 and prn d50. In theory, the effects of insulin should no longer be present 24 hrs after last night's dose, but as of right now the patient is not able to meet her glycemic needs PO (not eating). (2) UGIB (upper gastrointestinal bleed): Status: Acute Assessment and plan: Treating medically. No plans for endoscopy given COVID-19. Decrease IV protonix to 40 mg IV BID, carafate. Written for a diet, but not eating. (3) COVID-19: Status: Acute Assessment and plan: Not requiring O2. Continue remdesivir. Monitor inflammatory markers. (4) Dehydration: Status: Acute Assessment and plan: With hypernatremia, which is improving. Continue to monitor chemistries. Once BGs are better, would switch to D5half NS. (5) Anemia due to acute blood loss: Status: Acute Assessment and plan: As above S/p 1 unit pRBCs on day of admission. Hemoglobin is stable. Will continue to monitor. Some of this anemia is also dilutional. Continue to treat GI bleed, trend H/H. Replete folic acid. (6) Acute UTI: Status: Acute Assessment and plan: Due to proteus spp, present on admission. Continue ceftriaxone. (7) Nausea & vomiting: Status: Resolved Assessment and plan: CT abdomen/pelvis demonstrates cholelithiasis without cholecystitis as well as changes of chronic pancreatitis. Additionally, there is also evidence of constipation and fecal impaction. I do not feel that clinically the patient has either acute pancreatitis or cholecystitis. Constipation has resolved. Prn antiemetics ordered. (8) Altered mental status: Status: Acute Assessment and plan: This is better today. S/p IM zyprexa - if continues to refuse PO zyprexa, she should receive another dose of IM zyprexa tonight. The patient has a basline diagnosis of dementia as well as h/o schizophrenia and has a UTI, currently. (9) Constipation: Status: Resolved Assessment and plan: Continue bowel regimen. (10) Failure to thrive: Status: Acute Assessment and plan: Decreased PO intake over 1 week. Could be situational due to constipation, n/v, UTI, COVID-19. Palliative care following. If PO intake remains poor, will need to have a conversation about TFs. (11) Type II diabetes mellitus with complication, uncontrolled: Status: Chronic Assessment and plan: With hypoglycemia today. Continues D10 fluids. Long acting insulin d/c'ed. prn D50. I anticipate the hypoglycemia effect of long acting insulin to be minimal after 10 pm today. However, if this persists, adrenal insufficiency needs to be considered. (12) DVT prophylaxis: Status: Acute Assessment and plan: SCDs. Hold chemical DVT ppx in setting of active bleeding (13) Discharge planning issues: Status: Acute Assessment and plan: DNR/DNI. Palliative care consulted. Consider transfer to ICU. Subjective Subjective Interval history since last seen: Several episodes of hypoglycemia today.On D10. Received 5 mg of IM zyprexa. Starting to drink and is getting more interactive. Denies dizziness, chest pain, shortness of breath, nausea, abdominal pain. She is not hungry. Exam Narrative Exam Narrative: General: Frail elderly female who is more engaged in conversation today/interactive, short answers, A&Ox1, laying on her left side, appears comfortable and happy HEENT: EOMI, MMM Cardiovascular: RRR, no m/r/g Lungs: CTAB Gastrointestinal: soft, nontender, nondistended Extremities: no edema BLE's Objective Last Vital Signs Temp 36.9 C 05/08/21 12:44 Pulse 73 05/08/21 15:01 Resp 18 05/08/21 12:44 BP 130/61 05/08/21 12:44 Pulse Ox 97 05/08/21 12:44 Laboratory Results - last 24 hr 05/07/21 05/08/21 05/08/21 18:00 06:15 06:15 WBC RBC Hgb Hct MCV MCH MCHC RDW Plt Count MPV Immature Gran % Neutrophils % Lymphocytes % Monocytes % Eosinophils % Basophils % Nucleated RBC % Absolute Neutrophils Absolute Lymphocytes Absolute Monocytes Absolute Eosinophils Absolute Basophils RBC Morphology Hypochromasia Poikilocytosis Microcytosis PT INR D-Dimer Sodium 153 H 150 H Potassium 3.5 2.7 L* Chloride 117 H 114 H Carbon Dioxide 26.5 26.3 Anion Gap 9.5 9.7 BUN 27 H 28 H Creatinine 1.2 H 1.1 H Estimated GFR/1.73 m2 43.12 47.67 Glucose 91 48 L* Calcium 9.2 9.2 Phosphorus 3.2 Magnesium 2.1 Ferritin 314 H Total Bilirubin 0.2 Conjugated Bilirubin 0.1 AST 12 L ALT 10 L Alkaline Phosphatase 77 C-Reactive Protein 5.14 H Total Protein 6.7 Albumin 2.5 L Triglycerides 94 Total Cholesterol 152 LDL Cholesterol, Calc 94 HDL Cholesterol 40 Procalcitonin 0.2 05/08/21 05/08/21 05/08/21 06:15 06:15 12:00 WBC 14.09 H RBC 4.13 Hgb 8.5 L Hct 30.5 L MCV 73.8 L MCH 20.6 L MCHC 27.9 L RDW 19.3 H Plt Count 501 H MPV 11.3 H Immature Gran % 1.0 Neutrophils % 79.7 Lymphocytes % 8.9 Monocytes % 9.9 Eosinophils % 0.1 Basophils % 0.4 Nucleated RBC % 0 Absolute Neutrophils 11.23 H Absolute Lymphocytes 1.25 Absolute Monocytes 1.39 H Absolute Eosinophils 0.01 Absolute Basophils 0.06 RBC Morphology See Below Hypochromasia 1+ Poikilocytosis 1+ Microcytosis 2+ PT 11.0 INR 1.1 D-Dimer 1805 H Sodium Cancelled Potassium Cancelled Chloride Cancelled Carbon Dioxide Cancelled Anion Gap Cancelled BUN Cancelled Creatinine Cancelled Estimated GFR/1.73 m2 Cancelled Glucose Cancelled Calcium Cancelled Phosphorus Magnesium Ferritin Total Bilirubin Conjugated Bilirubin AST ALT Alkaline Phosphatase C-Reactive Protein Total Protein Albumin Triglycerides Total Cholesterol LDL Cholesterol, Calc HDL Cholesterol Procalcitonin 05/08/21 15:15 WBC RBC Hgb Hct MCV MCH MCHC RDW Plt Count MPV Immature Gran % Neutrophils % Lymphocytes % Monocytes % Eosinophils % Basophils % Nucleated RBC % Absolute Neutrophils Absolute Lymphocytes Absolute Monocytes Absolute Eosinophils Absolute Basophils RBC Morphology Hypochromasia Poikilocytosis Microcytosis PT INR D-Dimer Sodium 145 Potassium Chloride Carbon Dioxide Anion Gap BUN Creatinine Estimated GFR/1.73 m2 Glucose Calcium Phosphorus Magnesium Ferritin Total Bilirubin Conjugated Bilirubin AST ALT Alkaline Phosphatase C-Reactive Protein Total Protein Albumin Triglycerides Total Cholesterol LDL Cholesterol, Calc HDL Cholesterol Procalcitonin
[2021-05-08] MEDS: Dexamethasone 4 MG/ML VIAL 6 MG IVP (18:01)
[2021-05-08] MEDS: DOXYCYCLINE 100 MG in Normal Saline 100 ML IVPB (18:31)
[2021-05-08] MEDS: OLANZapine 5 MG TAB PO (19:59)
[2021-05-08] MEDS: Docusate Sodium 100 MG CAP PO (19:59)
[2021-05-08] MEDS: Pantoprazole 40 MG VIAL IVP (19:59)
[2021-05-08] MEDS: ACETAMINOPHEN 1,000 MG/100 ML BTL 400 MG IVPB (20:00)
[2021-05-08] MEDS: cefTRIAXone 1 GM/50 ML BAG IVPB (22:46)
[2021-05-09] VITALS (8 sets, daily range): BP systolic 109–149; BP diastolic 59–69; PULSE 63–89; RESP 15–18; TEMP 36.2–36.9; O2SAT 95–97
[2021-05-09 00:43] LABS: Vitamin D 25 Total 29.8 ng/mL (30-100)
[2021-05-09] MEDS: DEXTROSE 10%-WATER 500 ML 100 ML IV (03:46)
[2021-05-09] MEDS: Normal Saline Flush 10 ML SYR IVP ×3 (03:47→20:44)
[2021-05-09] MEDS: DOXYCYCLINE 100 MG in Normal Saline 100 ML IVPB ×2 (05:10→17:26)
[2021-05-09 07:47] LABS: Abs Immature Grans 0.13 10^3/uL (0.0-0.06); Absolute Basophil Count 0.01 10^3/uL (0.0-0.2); Absolute Lymphocyte Count 1.53 10^3/uL (1.2-3.4); Absolute Monocyte Count 0.53 10^3/uL (0.1-0.8); Absolute Neutrophil Count 6.65 10^3/uL (1.2-6.7); Basophils % 0.1; HCT 27.1 % (36.0-46.0); HGB 7.6 g/dL (11.2-15.7); Immature Grans % 1.5; Lymphocytes % 17.3; MCH 20.7 pg (27.0-33.0); MCV 73.8 fL (80-95); MPV 10.7 fL (8.0-11.0); Neutrophils % 75.1; Nucleated RBC 0 %; Platelet Count 437 10^3/uL (130-400); RBC 3.67 10^6/uL (3.93-5.22); RDW 19.8 % (11.7-14.6); RDW-SD 51.3 fL; WBC 8.85 10^3/uL (4.4-10.8)
[2021-05-09 08:02] LABS: ALT 9 U/L (14-59); AST 12 U/L (15-37); Albumin 2.3 g/dL (3.4-5.0); Alkaline Phosphatase 67 U/L (46-116); Bilirubin, Direct 0.1 mg/dL (0.0-0.2); Bilirubin, Total 0.2 mg/dL (0.2-1.0); Magnesium 1.9 mg/dL (1.8-2.4)
[2021-05-09 08:10] LABS: INR 1.1 (0.9-1.1)
[2021-05-09] MEDS: Pantoprazole 40 MG VIAL IVP ×2 (08:22→22:54)
[2021-05-09 08:26] LABS: Ferritin 604 ng/mL (8-252)
[2021-05-09] MEDS: OLANZapine 5 MG TAB PO (08:29)
[2021-05-09] MEDS: DEXTROSE 5%-WATER 1,000 ML 100 ML IV (08:35)
[2021-05-09 08:57] LABS: Anion Gap 10.2 mmol/L (3-11); CO2 22.8 mmol/L (21.0-32.0); Calcium 8.7 mg/dL (8.5-10.1); Chloride 109 mmol/L (98-107); Estimated GFR 53.21 (mL/min/1.73m2); PHOSPHORUS 2.2 mg/dL (2.6-4.7); Potassium 3.5 mmol/L (3.5-5.1); Sodium 142 mmol/L (136-145)
[2021-05-09 08:58] LABS: BUN 18 mg/dL (7-18); Glucose 187 mg/dL (74-106)
[2021-05-09 09:01] LABS: D-Dimer 2706 ng/mlFEU (<500)
[2021-05-09] MEDS: REMDESIVIR 100 MG in Normal Saline 250 ML 250 MG IVPB (10:23)
[2021-05-09] MEDS: DEXTROSE 5%-LACTATED RINGERS 1,000 ML 100 ML IV ×2 (11:02→20:48)
--- NOTE | 2021-05-09 11:38 | W.INDIABCONS ---
Date of service: 05/09/21 Time of Service: 11:38 Diabetes Inpatient Consult Reason for Visit: Consult for Diabetes DESCRIPTION/ASSESSMENT: Ms. Angela remains on clear liquids. Although I do not see that her intake has been recorded, there are reports that she is refusing PO. Long acting insulin is being held due to hypoglycemia. Today blood sugars are at target. Ms. Angela is 55.9 kg. Her BMI is 23.3 kg/m2 which is WNL. Her weight is fairly stable from when she was here in December of 2020. Of note, during that 01/01 admission she also refused PO quite consistently. INTERVENTION: Would consider advancing diet to soft as perhaps she just does not want clears any more. Please weight patient every other day to help monitor her nutritional status more accurately. PLAN: Will continue to follow progress and adjust nutrition care plan accordingly. Time Spent in Nutritional Counseling and Treatment: 0
--- NOTE | 2021-05-09 13:31 | PDOC.CMPRO ---
- If Service Date Differs Date of service: 05/09/21 Time of Service: 13:32 Care Management Progress Note S/O: Paulette remains on Covid 19 precautions and continues to be medically managed as, per report, she is not a candidate for surgery. Palliative care was consulted for a follow up, and will see her tomorrow. She has not been eating or drinking well during this admission. CM will continue to follow. A: Paulette is an 80 year old female admitted to [facility] on 05/06/21 with an upper GI bleed, anemia, UTI. P: Anticipate Paulette will return to the [facility] when medically cleared. CM will coordinate transport, likely EMS. She will follow up with the facility provider and her discharge plan of care. CM will continue to follow.
--- NOTE | 2021-05-09 14:13 | W.PALPGNOTE ---
Date of service: 05/09/21 Time of Service: 14:13 Assessment and Plan Assessment and plan (1) COVID-19: Status: Acute (2) Constipation: Status: Resolved (3) Nausea & vomiting: Status: Resolved (4) Failure to thrive: Status: Acute (5) Dehydration: Status: Acute (6) Acute UTI: Status: Acute (7) Anemia due to acute blood loss: Status: Acute (8) UGIB (upper gastrointestinal bleed): Status: Acute (9) Anemia: Status: Chronic (10) Schizophrenia: Qualifiers: Schizophrenia type: disorganized schizophrenia Qualified Code(s): F20.1 - Disorganized schizophrenia (11) Dementia: (12) Palliative care patient: Status: Acute Assessment and plan: Paulette Angela is an 80 year old female with a past medical history significant for IDDM2, schizophrenia, dementia, UTIs who lives at the [facility]. She was admitted for upper GI bleed after she vomited coffee ground emesis and had poor PO intake for a week. She was noted to be anemic and received 1 unit of PRBCs. She was also noted to have a UTI. Her brother, Navi Grewal is her guardian. She has a COLST on file which states she is a DNR/DNI and that she would not want a feeding tube. She was seen by Dr. Staley for Palliative care 3 days ago. There was concern that she may need a feeding tube at some point due to her poor oral intake and palliative was asked to follow up with her today. After discussing what a feeding tube is and asking if she would want one, she states, no, myself I wouldn't. She also reports that she ate some greek fries and chocolate pudding, which is accurate. She is more conversant today than what has been previously noted. It appears that she is improving overall. She would also benefit from a head end desizing machine operator visit for nail care. Subjective Subjective Interval history since last seen: Paulette was seen for a follow up Palliative care visit today. She was seen by Dr. Staley on 05/06/20. Paulette has not been eating and there were concerns that she may need a feeding tube at some point if she does not start eating. She has a COLST form that was completed with her brother, Navi, who is her guardian,. The COLST form was completed in 2018 and states she is a DNR/DNI and that she would not want a feeding tube. She is positive for COVID-19. She lives at the [facility]. She has been minimally conversant with staff. At the time of her visit, she was awake and alert. She was able to engage in conversation. When questioned how she was doing, she states, fine. She states she is not hungry. She reports that she ate a few greek fries and some chocolate pudding, which is accurate. We talked about what a feeding tube is and when questioned if she would ever want one, she states, no, myself, I wouldn't. She denies pain. She reports that she walks around at the [facility], which an COMPUTER TRAINING SPECIALIST who was present, endorses. When questioned where she lives, she states, [place]. When questioned if she lives in a halfway, she states, yes, in a halfway. When questioned what her brother's name is, she states, Edward Grewal. She reports that she was before and worked at [employer]. Exam Narrative Exam Narrative: General: elderly female, laying in bed, trying to get OOB to go to the bathroom at the end of the visit. She does not appear toxic. She is awake and alert, answers many questions appropriately. HEENT: atraumatic, EOMI, + tongue rolling, mucous membranes moist. Neck: supple, no JVD. Respiratory: respirations appear even and unlabored. She is not wearing oxygen, she does not appear to be in any respiratory distress. Extremities: she moves all 4 extremities freely. Appears to have some muscle atrophy in her legs. +trace edema to LUE. She has severely overgrown toe nails. Objective Last Vital Signs Temp 36.2 C L 05/09/21 12:53 Pulse 89 05/09/21 12:53 Resp 18 05/09/21 12:53 BP 137/67 05/09/21 12:53 Pulse Ox 97 05/09/21 12:53 Laboratory Results - last 24 hr 05/07/21 05/08/21 05/09/21 07:02 15:15 07:30 WBC RBC Hgb Hct MCV MCH MCHC RDW Plt Count MPV Immature Gran % Neutrophils % Lymphocytes % Monocytes % Eosinophils % Basophils % Nucleated RBC % Absolute Neutrophils Absolute Lymphocytes Absolute Monocytes Absolute Eosinophils Absolute Basophils PT INR D-Dimer Sodium 145 Potassium Chloride Carbon Dioxide Anion Gap BUN Creatinine Estimated GFR/1.73 m2 Glucose Calcium Phosphorus Magnesium 1.9 Ferritin 604 H Total Bilirubin 0.2 Conjugated Bilirubin 0.1 AST 12 L ALT 9 L Alkaline Phosphatase 67 Total Protein 6.0 L Albumin 2.3 L 25-OH Vitamin D Total 29.8 L 05/09/21 05/09/21 05/09/21 07:30 07:30 07:30 WBC 8.85 D RBC 3.67 L Hgb 7.6 L Hct 27.1 L MCV 73.8 L MCH 20.7 L MCHC 28.0 L RDW 19.8 H Plt Count 437 H MPV 10.7 Immature Gran % 1.5 Neutrophils % 75.1 Lymphocytes % 17.3 Monocytes % 6.0 Eosinophils % 0.0 Basophils % 0.1 Nucleated RBC % 0 Absolute Neutrophils 6.65 Absolute Lymphocytes 1.53 Absolute Monocytes 0.53 Absolute Eosinophils 0.00 Absolute Basophils 0.01 PT 11.0 INR 1.1 D-Dimer 2706 H Sodium 142 Potassium 3.5 Chloride 109 H Carbon Dioxide 22.8 Anion Gap 10.2 BUN 18 D Creatinine 1.0 Estimated GFR/1.73 m2 53.21 Glucose 187 H D Calcium 8.7 Phosphorus 2.2 L Magnesium Ferritin Total Bilirubin Conjugated Bilirubin AST ALT Alkaline Phosphatase Total Protein Albumin 25-OH Vitamin D Total
--- NOTE | 2021-05-09 16:46 | PGE_ITS ---
Date of Service Date of service: 05/09/21 Time of Service: 16:46 Assessment and Plan Assessment and plan (1) Hypoglycemia: Status: Resolved Assessment and plan: Resolved. Fluids downgraded to D5. Patient is tarting to eat so hopefully we can stop the fluids entirely tomorrow. Continue to hold long acting insulin. (2) UGIB (upper gastrointestinal bleed): Status: Acute Assessment and plan: Treating medically. No plans for endoscopy given COVID-19. Continue pprotonix to 40 mg IV BID, carafate. Starting to eat. (3) COVID-19: Status: Acute Assessment and plan: Not requiring O2. Continue remdesivir. Monitor inflammatory markers. (4) Dehydration: Status: Acute Assessment and plan: Hypernatremia is better. Fluids are now D5LR. Continue to monitor chemistries. (5) Anemia due to acute blood loss: Status: Acute Assessment and plan: As above S/p 1 unit pRBCs on day of admission. Hemoglobin is stable. Will continue to monitor. Some of this anemia is also dilutional. Continue to treat GI bleed, trend H/H. Replete folic acid. (6) Acute UTI: Status: Acute Assessment and plan: Due to proteus spp, present on admission. Continue ceftriaxone. (7) Nausea & vomiting: Status: Resolved Assessment and plan: CT abdomen/pelvis demonstrates cholelithiasis without cholecystitis as well as changes of chronic pancreatitis. Additionally, there is also evidence of constipation and fecal impaction. I do not feel that clinically the patient has either acute pancreatitis or cholecystitis. Constipation has resolved. Prn antiemetics ordered. (8) Altered mental status: Status: Acute Assessment and plan: Improved/resolved and now taking her medications. Continue zyprexa 5 mg PO BID. The patient has a basline diagnosis of dementia as well as h/o schizophrenia and has a UTI, currently. (9) Constipation: Status: Resolved Assessment and plan: Continue bowel regimen. (10) Failure to thrive: Status: Acute Assessment and plan: Decreased PO intake over 1 week. Could be situational due to constipation, n/v, UTI, COVID-19. This has gotten a lot better today. Continue to monitor. Patient has a COLST form that says: no feeding tube. The patient confirmed this in her conversation with palliative care today. (11) Type II diabetes mellitus with complication, uncontrolled: Status: Chronic Assessment and plan: hypoglycemia resolved. Will continue to hold long acting insulin and administer D5 fluids with SSI until PO intake picks up. (12) DVT prophylaxis: Status: Acute Assessment and plan: SCDs. Hold chemical DVT ppx in setting of active bleeding (13) Discharge planning issues: Status: Acute Assessment and plan: DNR/DNI. Palliative care consulted. Subjective Subjective Interval history since last seen: Paulette is doing better today. She is more talkative. She is taking her medications. She ate a half of chocolate pudding and a few serbian fries. She had a BM. She says Yeah, I feel busy when I ask her if she feels dizzy. She denies feeling short of breath. She answers all the other questions with Good night and attempting to go to sleep in front of me. She does not permit auscultation. Exam Narrative Exam Narrative: General: Frail elderly female who is very interactive and even funny, A&Ox1, refusing auscultation HEENT: EOMI, MMM Cardiovascular: not auscultated Lungs: nonlabored breathing (not auscultated) Gastrointestinal: covered in blankets (the patient does not permit exam). Extremities: covered in blankets Objective Last Vital Signs Temp 36.2 C L 05/09/21 12:53 Pulse 81 05/09/21 15:46 Resp 18 05/09/21 12:53 BP 137/67 05/09/21 12:53 Pulse Ox 97 05/09/21 12:53 Laboratory Results - last 24 hr 05/07/21 05/09/21 05/09/21 07:02 07:30 07:30 WBC RBC Hgb Hct MCV MCH MCHC RDW Plt Count MPV Immature Gran % Neutrophils % Lymphocytes % Monocytes % Eosinophils % Basophils % Nucleated RBC % Absolute Neutrophils Absolute Lymphocytes Absolute Monocytes Absolute Eosinophils Absolute Basophils PT INR D-Dimer Sodium 142 Potassium 3.5 Chloride 109 H Carbon Dioxide 22.8 Anion Gap 10.2 BUN 18 D Creatinine 1.0 Estimated GFR/1.73 m2 53.21 Glucose 187 H D Calcium 8.7 Phosphorus 2.2 L Magnesium 1.9 Ferritin 604 H Total Bilirubin 0.2 Conjugated Bilirubin 0.1 AST 12 L ALT 9 L Alkaline Phosphatase 67 Total Protein 6.0 L Albumin 2.3 L 25-OH Vitamin D Total 29.8 L 05/09/21 05/09/21 07:30 07:30 WBC 8.85 D RBC 3.67 L Hgb 7.6 L Hct 27.1 L MCV 73.8 L MCH 20.7 L MCHC 28.0 L RDW 19.8 H Plt Count 437 H MPV 10.7 Immature Gran % 1.5 Neutrophils % 75.1 Lymphocytes % 17.3 Monocytes % 6.0 Eosinophils % 0.0 Basophils % 0.1 Nucleated RBC % 0 Absolute Neutrophils 6.65 Absolute Lymphocytes 1.53 Absolute Monocytes 0.53 Absolute Eosinophils 0.00 Absolute Basophils 0.01 PT 11.0 INR 1.1 D-Dimer 2706 H Sodium Potassium Chloride Carbon Dioxide Anion Gap BUN Creatinine Estimated GFR/1.73 m2 Glucose Calcium Phosphorus Magnesium Ferritin Total Bilirubin Conjugated Bilirubin AST ALT Alkaline Phosphatase Total Protein Albumin 25-OH Vitamin D Total
[2021-05-09] MEDS: Insulin Aspart 300 UNITS/3 ML PEN SC (21:04)
[2021-05-09] MEDS: cefTRIAXone 1 GM/50 ML BAG IVPB (21:55)
[2021-05-10] VITALS (11 sets, daily range): BP systolic 113–133; BP diastolic 46–84; PULSE 73–96; RESP 15–16; TEMP 36.4–38.4; O2SAT 94–97
[2021-05-10] MEDS: DOXYCYCLINE 100 MG in Normal Saline 100 ML IVPB ×2 (05:25→17:20)
[2021-05-10] MEDS: DEXTROSE 5%-LACTATED RINGERS 1,000 ML 100 ML IV (05:43)
[2021-05-10 07:24] LABS: Abs Immature Grans 0.09 10^3/uL (0.0-0.06); Absolute Basophil Count 0.05 10^3/uL (0.0-0.2); Absolute Eosinophil Count 0.12 10^3/uL (0.0-0.7); Absolute Lymphocyte Count 1.69 10^3/uL (1.2-3.4); Absolute Monocyte Count 0.64 10^3/uL (0.1-0.8); Absolute Neutrophil Count 5.77 10^3/uL (1.2-6.7); Basophils % 0.6; Eosinophils % 1.4; HCT 28.4 % (36.0-46.0); HGB 7.8 g/dL (11.2-15.7); Immature Grans % 1.1; Lymphocytes % 20.2; MCHC 27.5 % (32.0-36.0); MCV 76.5 fL (80-95); MPV 10.8 fL (8.0-11.0); Monocytes % 7.7; Nucleated RBC 0 %; Platelet Count 366 10^3/uL (130-400); RBC 3.71 10^6/uL (3.93-5.22); RDW 20.4 % (11.7-14.6); RDW-SD 53.4 fL; WBC 8.36 10^3/uL (4.4-10.8)
[2021-05-10 07:43] LABS: INR 1.1 (0.9-1.1); Prothrombin Time 11.1 sec (9.3-11.0)
[2021-05-10 07:54] LABS: ALT 9 U/L (14-59); AST 15 U/L (15-37); Albumin 2.1 g/dL (3.4-5.0); Alkaline Phosphatase 66 U/L (46-116); Anion Gap 9.7 mmol/L (3-11); BUN 15 mg/dL (7-18); Bilirubin, Direct 0.1 mg/dL (0.0-0.2); Bilirubin, Total 0.2 mg/dL (0.2-1.0); C-Reactive Protein 1.91 mg/dL (0.0-0.3); CO2 24.3 mmol/L (21.0-32.0); CREATININE 1.1 mg/dL (0.55-1.02); Calcium 8.8 mg/dL (8.5-10.1); Chloride 115 mmol/L (98-107); Estimated GFR 47.67 (mL/min/1.73m2); Glucose 101 mg/dL (74-106); Magnesium 1.9 mg/dL (1.8-2.4); PHOSPHORUS 2.9 mg/dL (2.6-4.7); Potassium 3.8 mmol/L (3.5-5.1); Sodium 149 mmol/L (136-145); Total Protein 5.6 g/dL (6.4-8.2)
[2021-05-10 07:57] LABS: Anisocytosis 2+; Diff Comment RBC Morph Reviewed; Hypochromasia 2+
[2021-05-10 07:58] LABS: Poikilocytes 2+
[2021-05-10 08:05] LABS: D-Dimer 2347 ng/mlFEU (<500)
[2021-05-10 08:38] LABS: Ferritin 506 ng/mL (8-252)
[2021-05-10 08:57] LABS: Procalcitonin 0.1 ng/mL
[2021-05-10] MEDS: Normal Saline Flush 10 ML SYR IVP ×3 (09:18→20:12)
[2021-05-10] MEDS: Pantoprazole 40 MG VIAL IVP (09:18)
[2021-05-10] MEDS: OLANZapine 5 MG TAB PO ×2 (09:19→20:11)
[2021-05-10] MEDS: Normal Saline 500 ML 30 ML IV (09:20)
[2021-05-10] MEDS: REMDESIVIR 100 MG in Normal Saline 250 ML 250 MG IVPB (10:00)
[2021-05-10] MEDS: DEXTROSE 5%-WATER 1,000 ML 75 ML IV (12:35)
[2021-05-10 14:55] LABS: BUN 14 mg/dL (7-18); CREATININE 1.1 mg/dL (0.55-1.02); Calcium 8.5 mg/dL (8.5-10.1); Chloride 113 mmol/L (98-107); Estimated GFR 47.67 (mL/min/1.73m2); Glucose 174 mg/dL (74-106); Potassium 3.8 mmol/L (3.5-5.1); Sodium 147 mmol/L (136-145)
[2021-05-10 16:18] LABS: Lab Add On Test Done
[2021-05-10] MEDS: Sucralfate 1 GM TAB PO (17:21)
--- NOTE | 2021-05-10 18:27 | CMPROGNOTE_ITS ---
- If Service Date Differs Date of service: 05/10/21 Time of Service: 18:27 Care Management Progress Note S/O: Paulette remains on Covid 19 precautions, therefore CM was unable to meet with her today. Per report, she has started to eat/drink, therefore her fluids will be downgraded today, and may be able to be stopped tomorrow. Paulette met with Palliative Care yesterday, and she confirmed her wishes that are present on her COLST form. Once she is medically cleared, she will return to the [facility]. CM will continue to follow. A: Paulette is an 80 year old female admitted to [facility] on 05/06/21 with an upper GI bleed, anemia, UTI. P: Anticipate Paulette will return to the [facility] when medically cleared. CM will coordinate transport, likely EMS. She will follow up with the facility provider and her discharge plan of care. CM will continue to follow.
--- NOTE | 2021-05-10 18:35 | W.PM.PROGNOT ---
Date of Service Date of service: 05/10/21 Time of Service: 18:36 Assessment and Plan Assessment and plan (1) UGIB (upper gastrointestinal bleed): Status: Acute Assessment and plan: Treating medically. No plans for endoscopy given COVID-19. Transition protonix to PO, continue carafate. Treat nausea. (2) Hypoglycemia: Status: Resolved Assessment and plan: Resolved. Continue gentle d5 fluids. Continue to hold long acting insulin. (3) COVID-19: Status: Acute Assessment and plan: Not requiring O2. Continue remdesivir. Monitor inflammatory markers. (4) Dehydration: Status: Acute Assessment and plan: Hypernatremia worse this am. Switched back to D5W - since then, better. Continue D5W at a decreased rate. Continue to monitor chemistries. (5) Anemia due to acute blood loss: Status: Acute Assessment and plan: As above S/p 1 unit pRBCs on day of admission. Hemoglobin is stable.Some of this anemia is also dilutional. Continue to treat GI bleed, trend H/H. Replete folic acid. (6) Acute UTI: Status: Acute Assessment and plan: Due to proteus spp, present on admission. Continue ceftriaxone. (7) Nausea & vomiting: Status: Acute Assessment and plan: CT abdomen/pelvis demonstrates cholelithiasis without cholecystitis as well as changes of chronic pancreatitis. Additionally, there is also evidence of constipation and fecal impaction. I do not feel that clinically the patient has either acute pancreatitis or cholecystitis. Constipation has resolved. Continue Prn antiemetics, PPI. (8) Altered mental status: Status: Resolved Assessment and plan: Improved/resolved and now taking her medications. Continue zyprexa 5 mg PO BID. The patient has a basline diagnosis of dementia as well as h/o schizophrenia and has a UTI, currently. (9) Constipation: Status: Resolved Assessment and plan: Continue bowel regimen. (10) Failure to thrive: Status: Acute Assessment and plan: Decreased PO intake over 1 week. Could be situational due to constipation, n/v, UTI, COVID-19. Doing better, though PO intake is still insufficient. Continue to monitor. Patient has a COLST form that says: no feeding tube. The patient confirmed this in her conversation with palliative care. She is still not eating. Treat nausea and see if this improves. If not, comfort measures could be considered, especially if the patient does not get better in her own enviornment. (11) Type II diabetes mellitus with complication, uncontrolled: Status: Chronic Assessment and plan: hypoglycemia resolved. Will continue to hold long acting insulin and administer D5 fluids with SSI until PO intake picks up. (12) DVT prophylaxis: Status: Acute Assessment and plan: SCDs. Hold chemical DVT ppx in setting of active bleeding (13) Discharge planning issues: Status: Acute Assessment and plan: DNR/DNI. Palliative care consulted. Subjective Subjective Patient reports: no new complaints Interval history since last seen: Ms Angela states she is a little short of breath and nauseated. She denies dizziness, chest pain, abdominal pain. No hypoglycemia today. Exam Narrative Exam Narrative: General: Frail elderly female who is very engaged when I talk to her, A&Ox1 permits physical exam HEENT: EOMI, MMM Cardiovascular: RRR, no m/r/g Lungs: Diminished breath sounds B Gastrointestinal: soft,nontender, nondistended Extremities: no edema BLE's Objective Last Vital Signs Temp 36.4 C L 05/10/21 17:47 Pulse 96 H 05/10/21 17:47 Resp 16 05/10/21 17:47 BP 113/46 L 05/10/21 17:47 Pulse Ox 96 05/10/21 17:47 Laboratory Results - last 24 hr 05/06/21 05/06/21 05/10/21 12:05 12:05 07:10 WBC RBC Hgb Hct MCV MCH MCHC RDW Plt Count MPV Immature Gran % Neutrophils % Lymphocytes % Monocytes % Eosinophils % Basophils % Nucleated RBC % Absolute Neutrophils Absolute Lymphocytes Absolute Monocytes Absolute Eosinophils Absolute Basophils RBC Morphology Hypochromasia Poikilocytosis Anisocytosis PT INR D-Dimer Sodium 149 H Potassium 3.8 Chloride 115 H Carbon Dioxide 24.3 Anion Gap 9.7 BUN 15 Creatinine 1.1 H Estimated GFR/1.73 m2 47.67 Glucose 101 D Calcium 8.8 Phosphorus 2.9 Magnesium 1.9 Ferritin 506 H Total Bilirubin 0.2 Conjugated Bilirubin 0.1 AST 15 ALT 9 L Alkaline Phosphatase 66 C-Reactive Protein 1.91 H Total Protein 5.6 L Albumin 2.1 L Procalcitonin Add-On Test Request Done Done 05/10/21 05/10/21 05/10/21 07:10 07:10 07:10 WBC 8.36 RBC 3.71 L Hgb 7.8 L Hct 28.4 L MCV 76.5 L MCH 21.0 L MCHC 27.5 L RDW 20.4 H Plt Count 366 MPV 10.8 Immature Gran % 1.1 Neutrophils % 69.0 Lymphocytes % 20.2 Monocytes % 7.7 Eosinophils % 1.4 Basophils % 0.6 Nucleated RBC % 0 Absolute Neutrophils 5.77 Absolute Lymphocytes 1.69 Absolute Monocytes 0.64 Absolute Eosinophils 0.12 Absolute Basophils 0.05 RBC Morphology See Below Hypochromasia 2+ Poikilocytosis 2+ Anisocytosis 2+ PT 11.1 H INR 1.1 D-Dimer 2347 H Sodium Potassium Chloride Carbon Dioxide Anion Gap BUN Creatinine Estimated GFR/1.73 m2 Glucose Calcium Phosphorus Magnesium Ferritin Total Bilirubin Conjugated Bilirubin AST ALT Alkaline Phosphatase C-Reactive Protein Total Protein Albumin Procalcitonin 0.1 Add-On Test Request 05/10/21 14:25 WBC RBC Hgb Hct MCV MCH MCHC RDW Plt Count MPV Immature Gran % Neutrophils % Lymphocytes % Monocytes % Eosinophils % Basophils % Nucleated RBC % Absolute Neutrophils Absolute Lymphocytes Absolute Monocytes Absolute Eosinophils Absolute Basophils RBC Morphology Hypochromasia Poikilocytosis Anisocytosis PT INR D-Dimer Sodium 147 H Potassium 3.8 Chloride 113 H Carbon Dioxide 26.0 Anion Gap 8.0 BUN 14 Creatinine 1.1 H Estimated GFR/1.73 m2 47.67 Glucose 174 H Calcium 8.5 Phosphorus Magnesium Ferritin Total Bilirubin Conjugated Bilirubin AST ALT Alkaline Phosphatase C-Reactive Protein Total Protein Albumin Procalcitonin Add-On Test Request
[2021-05-10] MEDS: Ondansetron 4 MG/2 ML VIAL IVP (20:10)
[2021-05-10] MEDS: Senna TAB 1 TAB PO (20:11)
[2021-05-10] MEDS: Pantoprazole 40 MG TABCR PO (20:12)
[2021-05-10] MEDS: ACETAMINOPHEN 1,000 MG/100 ML BTL 400 MG IVPB (20:41)
[2021-05-10] MEDS: Insulin Aspart 300 UNITS/3 ML PEN SC (22:46)
[2021-05-10] MEDS: cefTRIAXone 1 GM/50 ML BAG IVPB (22:50)
[2021-05-11] VITALS (11 sets, daily range): BP systolic 98–148; BP diastolic 52–65; PULSE 66–108; RESP 15–20; TEMP 36.8–38.6; O2SAT 94–96
[2021-05-11] MEDS: Normal Saline Flush 10 ML SYR IVP ×3 (06:15→10:16)
[2021-05-11] MEDS: DOXYCYCLINE 100 MG in Normal Saline 100 ML IVPB (06:38)
[2021-05-11] MEDS: OLANZapine 5 MG TAB PO (08:12)
[2021-05-11] MEDS: REMDESIVIR 100 MG in Normal Saline 250 ML 250 MG IVPB (10:16)
[2021-05-11 10:27] LABS: Abs Immature Grans 0.11 10^3/uL (0.0-0.06); Absolute Basophil Count 0.03 10^3/uL (0.0-0.2); Absolute Eosinophil Count 0.12 10^3/uL (0.0-0.7); Absolute Lymphocyte Count 1.41 10^3/uL (1.2-3.4); Absolute Monocyte Count 0.86 10^3/uL (0.1-0.8); Absolute Neutrophil Count 8.33 10^3/uL (1.2-6.7); Basophils % 0.3; Eosinophils % 1.1; HCT 27.6 % (36.0-46.0); HGB 7.8 g/dL (11.2-15.7); MCH 21.3 pg (27.0-33.0); MCHC 28.3 % (32.0-36.0); MCV 75.2 fL (80-95); MPV 10.8 fL (8.0-11.0); Monocytes % 7.9; Neutrophils % 76.7; Nucleated RBC 0 %; Platelet Count 371 10^3/uL (130-400); RBC 3.67 10^6/uL (3.93-5.22); RDW 21.2 % (11.7-14.6); RDW-SD 53.8 fL; WBC 10.86 10^3/uL (4.4-10.8)
[2021-05-11 10:44] LABS: Anisocytosis 2+; Diff Comment RBC Morph Reviewed; Hypochromasia 1+; Microcytosis 1+
[2021-05-11 10:50] LABS: ALT 9 U/L (14-59); AST 12 U/L (15-37); Albumin 2.1 g/dL (3.4-5.0); Alkaline Phosphatase 75 U/L (46-116); Anion Gap 6.3 mmol/L (3-11); BUN 19 mg/dL (7-18); Bilirubin, Direct 0.1 mg/dL (0.0-0.2); Bilirubin, Total 0.2 mg/dL (0.2-1.0); C-Reactive Protein 3.61 mg/dL (0.0-0.3); CO2 25.7 mmol/L (21.0-32.0); Calcium 8.5 mg/dL (8.5-10.1); Chloride 109 mmol/L (98-107); Estimated GFR 53.21 (mL/min/1.73m2); Glucose 159 mg/dL (74-106); Magnesium 1.5 mg/dL (1.8-2.4); PHOSPHORUS 2.9 mg/dL (2.6-4.7); Potassium 3.5 mmol/L (3.5-5.1); Sodium 141 mmol/L (136-145); Total Protein 5.6 g/dL (6.4-8.2)
[2021-05-11 10:55] LABS: INR 1.2 (0.9-1.1); Prothrombin Time 11.7 sec (9.3-11.0)
[2021-05-11 10:59] LABS: D-Dimer 2017 ng/mlFEU (<500)
[2021-05-11 11:17] LABS: Ferritin 401 ng/mL (8-252)
--- NOTE | 2021-05-11 12:32 | W.PM.PROGNOT ---
Date of Service Date of service: 05/11/21 Time of Service: 12:32 Assessment and Plan Assessment and plan (1) UGIB (upper gastrointestinal bleed): Status: Acute Assessment and plan: For surgical consult no plans for endoscopy at this time. We will treat her medically with Protonix and Carafate. Unfortunately patient is not 100% compliant with taking her oral medications. I switched her oral Protonix to IV. We will continue to try to encourage her to take Carafate. We will treat her iron deficiency anemia with IV iron supplementation.Repeat hemoglobin 7.8 g this morning which is been stable over the last 2 days but overall has drifted down from high of 9.9 after her transfusion. (2) Hypoglycemia: Status: Resolved Assessment and plan: No further hypoglycemic spells overnight. Blood sugar this morning was 135 at breakfast and 137 at lunchtime. Bedtime blood sugar was 214 last night. Currently on NovoLog sliding scale insulin sensitive scale. Still receiving D5W at 50 mL/h.Serum sodium is now down to 141 and BUN and creatinine have normalized. This point will discontinue IV fluids in the setting of Covid infection. Monitor oral intake as well as daily electrolytes and BUN and creatinine. (3) COVID-19: Status: Acute Assessment and plan: Not requiring O2. Continue remdesivir. Monitor inflammatory markers. (4) Dehydration: Status: Resolved Assessment and plan: Resolved. Discontinue D5W but continue to monitor daily electrolytes and BUN and creatinine. (5) Anemia due to acute blood loss: Status: Acute Assessment and plan: As above S/p 1 unit pRBCs on day of admission. Hemoglobin is stable.Some of this anemia is also dilutional. Continue to treat GI bleed, trend H/H. Replete folic acid. (6) Acute UTI: Status: Acute Assessment and plan: Due to proteus spp, present on admission. Continue ceftriaxone. (7) Nausea & vomiting: Status: Acute Assessment and plan: CT abdomen/pelvis demonstrates cholelithiasis without cholecystitis as well as changes of chronic pancreatitis. Additionally, there is also evidence of constipation and fecal impaction. I do not feel that clinically the patient has either acute pancreatitis or cholecystitis. Constipation has resolved. Continue Prn antiemetics, PPI. (8) Altered mental status: Status: Resolved Assessment and plan: Improved/resolved and now taking her medications. Continue zyprexa 5 mg PO BID. The patient has a basline diagnosis of dementia as well as h/o schizophrenia and has a UTI, currently. (9) Constipation: Status: Resolved Assessment and plan: Patient had a large bowel movement yesterday. She remains on a good bowel regimen including docusate and senna as well as as needed Dulcolax and as needed milk of magnesia. (10) Failure to thrive: Status: Acute Assessment and plan: Decreased PO intake over 1 week. Could be situational due to constipation, n/v, UTI, COVID-19. Doing better, though PO intake is still insufficient. Continue to monitor. Patient has a COLST form that says: no feeding tube. The patient confirmed this in her conversation with palliative care. She is still not eating. Treat nausea and see if this improves. If not, comfort measures could be considered, especially if the patient does not get better in her own enviornment. We will give a trial of Marinol to see if we can stimulate her appetite. (11) Type II diabetes mellitus with complication, uncontrolled: Status: Chronic Assessment and plan: hypoglycemia resolved. Will continue to hold long acting insulin monitor blood sugars and cover elevated blood sugars with low-dose NovoLog per sensitive scale. This point will discontinue D5W as noted above (12) DVT prophylaxis: Status: Acute Assessment and plan: SCDs. Hold chemical DVT ppx in setting of active bleeding (13) Discharge planning issues: Status: Acute Assessment and plan: DNR/DNI. Palliative care consulted. Subjective Subjective Interval history since last seen: Patient has no acute complaints. Per nursing, she is beginning to feed herself and take oral liquids on her own. As for her cognitive status, she is demented and has schizophrenia and remains fixated on hot dogs and beans whenever she is asked about anything. Still requires asistance of two people to transfer from bed to chair or from chair to commode. Exam Narrative Exam Narrative: Elderly female who is alert and oriented only to person she is in no acute respiratory distress is able to talk in full sentences but makes no sense at all. Lungs are clear to auscultation Heart is regular rate and rhythm Abdomen soft nondistended normal bowel sounds Lower extremities without peripheral edema or cyanosis Objective Last Vital Signs Temp 38.4 C H 05/11/21 12:32 Pulse 80 05/11/21 12:32 Resp 20 05/11/21 12:32 BP 124/60 05/11/21 12:32 Pulse Ox 94 05/11/21 12:32 Laboratory Results - last 24 hr 05/06/21 05/06/21 05/10/21 12:05 12:05 14:25 WBC RBC Hgb Hct MCV MCH MCHC RDW Plt Count MPV Immature Gran % Neutrophils % Lymphocytes % Monocytes % Eosinophils % Basophils % Nucleated RBC % Absolute Neutrophils Absolute Lymphocytes Absolute Monocytes Absolute Eosinophils Absolute Basophils RBC Morphology Hypochromasia Anisocytosis Microcytosis PT INR D-Dimer Sodium 147 H Potassium 3.8 Chloride 113 H Carbon Dioxide 26.0 Anion Gap 8.0 BUN 14 Creatinine 1.1 H Estimated GFR/1.73 m2 47.67 Glucose 174 H Calcium 8.5 Phosphorus Magnesium Ferritin Total Bilirubin Conjugated Bilirubin AST ALT Alkaline Phosphatase C-Reactive Protein Total Protein Albumin Add-On Test Request Done Done 05/11/21 05/11/21 05/11/21 10:20 10:20 10:20 WBC 10.86 H RBC 3.67 L Hgb 7.8 L Hct 27.6 L MCV 75.2 L MCH 21.3 L MCHC 28.3 L RDW 21.2 H Plt Count 371 MPV 10.8 Immature Gran % 1.0 Neutrophils % 76.7 Lymphocytes % 13.0 Monocytes % 7.9 Eosinophils % 1.1 Basophils % 0.3 Nucleated RBC % 0 Absolute Neutrophils 8.33 H Absolute Lymphocytes 1.41 Absolute Monocytes 0.86 H Absolute Eosinophils 0.12 Absolute Basophils 0.03 RBC Morphology See Below Hypochromasia 1+ Anisocytosis 2+ Microcytosis 1+ PT 11.7 H INR 1.2 H D-Dimer 2017 H Sodium 141 Potassium 3.5 Chloride 109 H Carbon Dioxide 25.7 Anion Gap 6.3 BUN 19 H Creatinine 1.0 Estimated GFR/1.73 m2 53.21 Glucose 159 H Calcium 8.5 Phosphorus 2.9 Magnesium 1.5 L Ferritin 401 H Total Bilirubin 0.2 Conjugated Bilirubin 0.1 AST 12 L ALT 9 L Alkaline Phosphatase 75 C-Reactive Protein 3.61 H Total Protein 5.6 L Albumin 2.1 L Add-On Test Request
[2021-05-11] MEDS: Acetaminophen 325 MG TAB PO ×2 (12:47→17:17)
[2021-05-11] MEDS: Pantoprazole 40 MG VIAL IVP (13:00)
[2021-05-11] MEDS: IRON SUCROSE COMPLEX 400 MG in Normal Saline 250 ML 100 MG IVPB (13:51)
[2021-05-11] MEDS: Insulin Aspart 300 UNITS/3 ML PEN SC ×2 (17:11→23:30)
[2021-05-11] MEDS: cefTRIAXone 1 GM VIAL IM (22:56)
[2021-05-11] MEDS: Lidocaine 1% Multi-Dose 50 ML VIAL (23:02)
[2021-05-12] VITALS (7 sets, daily range): BP systolic 102–133; BP diastolic 45–60; PULSE 75–86; RESP 16–19; TEMP 36.8–37.9; O2SAT 95–97
[2021-05-12 07:35] LABS: Absolute Basophil Count 0.02 10^3/uL (0.0-0.2); Absolute Eosinophil Count 0.14 10^3/uL (0.0-0.7); Absolute Monocyte Count 0.84 10^3/uL (0.1-0.8); Absolute Neutrophil Count 6.59 10^3/uL (1.2-6.7); Basophils % 0.2; Eosinophils % 1.5; HCT 25.7 % (36.0-46.0); HGB 7.4 g/dL (11.2-15.7); Immature Grans % 1.1; Lymphocytes % 16.3; MCH 21.6 pg (27.0-33.0); MCHC 28.8 % (32.0-36.0); MCV 74.9 fL (80-95); MPV 10.7 fL (8.0-11.0); Monocytes % 9.1; Neutrophils % 71.8; Nucleated RBC 0 %; Platelet Count 335 10^3/uL (130-400); RBC 3.43 10^6/uL (3.93-5.22); RDW 22.3 % (11.7-14.6); RDW-SD 54.7 fL; WBC 9.19 10^3/uL (4.4-10.8)
[2021-05-12 08:04] LABS: Anion Gap 7.5 mmol/L (3-11); BUN 18 mg/dL (7-18); CO2 23.5 mmol/L (21.0-32.0); CREATININE 0.9 mg/dL (0.55-1.02); Calcium 8.6 mg/dL (8.5-10.1); Chloride 111 mmol/L (98-107); Glucose 138 mg/dL (74-106); Potassium 3.4 mmol/L (3.5-5.1); Sodium 142 mmol/L (136-145)
[2021-05-12] MEDS: Folic Acid 1 MG TAB PO (08:27)
[2021-05-12] MEDS: Zinc Sulfate 220 MG TAB PO (08:27)
[2021-05-12] MEDS: Senna TAB 1 TAB PO (08:27)
[2021-05-12] MEDS: OLANZapine 5 MG TAB PO (08:27)
[2021-05-12] MEDS: Dronabinol 2.5 MG CAP PO (08:27)
[2021-05-12] MEDS: Cholecalciferol (Vitamin D3) 1,000 UNIT TAB 2000 UNITS PO (08:27)
[2021-05-12] MEDS: Docusate Sodium 100 MG CAP PO (08:27)
[2021-05-12 08:49] LABS: Procalcitonin 0.2 ng/mL
[2021-05-12] MEDS: Insulin Aspart 300 UNITS/3 ML PEN SC ×2 (12:04→18:24)
[2021-05-12] MEDS: Normal Saline Flush 10 ML SYR (13:26)
[2021-05-12] MEDS: Bacitracin 1 PACKET (13:26)
--- NOTE | 2021-05-12 14:35 | PGE_ITS ---
Date of Service Date of service: 05/12/21 Time of Service: 14:35 Assessment and Plan Assessment and plan (1) UGIB (upper gastrointestinal bleed): Status: Acute Assessment and plan: I spoke with Dr. Calle today. She indicated they chose not to do an EGD on admission because apparently the GI bleeding had occurred at the snf in which she had coffee-ground emesis and she has had no evidence of bleeding since she has been here and her stools were Hemoccult negative. She indicated to me that if she shows signs of recurrent bleeding she would be more than happy to perform an EGD. We will continue to monitor her blood count. Hemoglobin has been in the mid to high sevens over the last 3 to 4 days. She came in w/ Hb of 7.7 gm and damaris to as high as 9.9 gm however, I think that this was not accurate as she only had 1 unit of PRBC. For past 4 days she has been stable. If her blood count remains stable tomorrow, then I feel that she can return to [facility]. I have started her on oral iron since she has lost her iv access otherwise I would put her on Venofer. (2) Hypoglycemia: Status: Resolved Assessment and plan: No further hypoglycemic spells overnight. cont. to monitor and cover w/ low dose Novolog sliding scale (3) COVID-19: Status: Acute Assessment and plan: Not hypoxemic and has completed 5 days of Remdesivir. No further treatment indicated at this time. (4) Anemia due to acute blood loss: Status: Acute Assessment and plan: stable hemoglobin. cont. to monitor and treat w/ iron and folic acid (5) Acute UTI: Status: Acute Assessment and plan: Due to proteus spp, present on admission. CTRX dc'ed d/t lack of iv. given fosfomycin 3 gm today. (6) Nausea & vomiting: Status: Acute Assessment and plan: CT abdomen/pelvis demonstrates cholelithiasis without cholecystitis as well as changes of chronic pancreatitis. Additionally, there is also evidence of constipation and fecal impaction. I do not feel that clinically the patient has either acute pancreatitis or cholecystitis. Constipation has resolved. Continue Prn antiemetics, PPI. (7) Constipation: Status: Resolved Assessment and plan: Patient had a large bowel movement yesterday. She remains on a good bowel regimen including docusate and senna as well as as needed Dulcolax and as needed milk of magnesia. (8) Failure to thrive: Status: Acute Assessment and plan: Decreased PO intake over 1 week. Could be situational due to constipation, n/v, UTI, COVID-19. Doing better, though PO intake is still insufficient. Continue to monitor. Patient has a COLST form that says: no feeding tube. The patient confirmed this in her conversation with palliative care. She is still not eating. Treat nausea and see if this improves. If not, comfort measures could be considered, especially if the patient does not get better in her own enviornment. We will give a trial of Marinol to see if we can stimulate her appetite. (9) Type II diabetes mellitus with complication, uncontrolled: Status: Chronic Assessment and plan: hypoglycemia resolved. Will continue to hold long acting insulin monitor blood sugars and cover elevated blood sugars with low-dose NovoLog per sensitive scale. This point will discontinue D5W as noted above (10) Schizophrenia: Assessment and plan: continue Zyprexa 5 mg bid Qualifiers: Schizophrenia type: disorganized schizophrenia Qualified Code(s): F20.1 - Disorganized schizophrenia (11) DVT prophylaxis: Status: Acute Assessment and plan: SCDs. Hold chemical DVT ppx in setting of active bleeding (12) Discharge planning issues: Status: Acute Assessment and plan: DNR/DNI. Palliative care consulted. Plan to return to [facility] in the next day if no further GI bleeding Subjective Subjective Interval history since last seen: Patient's midline was leaking and therefore it was removed. I discontinued any IV medications and she is now on oral GI treatment with Protonix and Carafate. I gave her a dose of fosfomycin today to treat her UTI. She completed 5-day course of Remdesivir yesterday. She has had no arrhythmias overnight rhythm remains sinus rhythm therefore I am going to discontinue her telemetry. Patient's oxygen status has been stable with SPO2 in the mid to high 90s on room air throughout her hospital stay. Exam Narrative Exam Narrative: Elderly female sitting up in her chair seems to be disengaged. Try to encourage her to eat or drink and she politely said no thank you. She then closed her eyes and refused to talk to me further. Lungs are clear to auscultation Heart regular rate and rhythm Abdomen soft nondistended Lower extremities without peripheral cyanosis or edema. Objective Last Vital Signs Temp 37.7 C H 05/12/21 12:31 Pulse 85 05/12/21 12:31 Resp 19 05/12/21 12:31 BP 121/60 05/12/21 12:31 Pulse Ox 97 05/12/21 12:31 Laboratory Results - last 24 hr 05/12/21 05/12/21 05/12/21 07:05 07:05 07:05 WBC 9.19 RBC 3.43 L Hgb 7.4 L Hct 25.7 L MCV 74.9 L MCH 21.6 L MCHC 28.8 L RDW 22.3 H Plt Count 335 MPV 10.7 Immature Gran % 1.1 Neutrophils % 71.8 Lymphocytes % 16.3 Monocytes % 9.1 Eosinophils % 1.5 Basophils % 0.2 Nucleated RBC % 0 Absolute Neutrophils 6.59 Absolute Lymphocytes 1.50 Absolute Monocytes 0.84 H Absolute Eosinophils 0.14 Absolute Basophils 0.02 Sodium 142 Potassium 3.4 L Chloride 111 H Carbon Dioxide 23.5 Anion Gap 7.5 BUN 18 Creatinine 0.9 Estimated GFR/1.73 m2 >= 60.00 Glucose 138 H Calcium 8.6 Procalcitonin 0.2
[2021-05-12] MEDS: Sucralfate 1 GM TAB PO (17:03)
[2021-05-13 07:50] LABS: Abs Immature Grans 0.07 10^3/uL (0.0-0.06); Absolute Basophil Count 0.03 10^3/uL (0.0-0.2); Absolute Eosinophil Count 0.19 10^3/uL (0.0-0.7); Absolute Lymphocyte Count 1.73 10^3/uL (1.2-3.4); Absolute Monocyte Count 0.79 10^3/uL (0.1-0.8); Absolute Neutrophil Count 5.06 10^3/uL (1.2-6.7); Basophils % 0.4; Eosinophils % 2.4; HCT 27.3 % (36.0-46.0); HGB 7.7 g/dL (11.2-15.7); Immature Grans % 0.9; MCH 21.4 pg (27.0-33.0); MCHC 28.2 % (32.0-36.0); Neutrophils % 64.3; Nucleated RBC 0 %; Platelet Count 264 10^3/uL (130-400); RBC 3.59 10^6/uL (3.93-5.22); RDW 22.8 % (11.7-14.6); RDW-SD 57.8 fL; WBC 7.87 10^3/uL (4.4-10.8)
[2021-05-13 08:03] LABS: Anion Gap 7.1 mmol/L (3-11); BUN 15 mg/dL (7-18); CO2 25.9 mmol/L (21.0-32.0); CREATININE 0.9 mg/dL (0.55-1.02); Calcium 8.6 mg/dL (8.5-10.1); Chloride 111 mmol/L (98-107); Glucose 137 mg/dL (74-106); Magnesium 1.8 mg/dL (1.8-2.4); Potassium 3.5 mmol/L (3.5-5.1); Sodium 144 mmol/L (136-145)
[2021-05-13 08:16] LABS: Anisocytosis 2+; Hypochromasia 1+; Poikilocytes 2+; Polychromasia Present
[2021-05-13 08:30] VITALS: BP 110/53; PULSE 67; RESP 18; TEMP 37.4; O2SAT 98
--- NOTE | 2021-05-13 08:39 | PCPN_ITS ---
Date of service: 05/13/21 Time of Service: 08:39 Assessment and Plan Assessment and plan (1) Failure to thrive: Status: Chronic (2) Anemia: Status: Chronic Assessment and plan: Anemia secondary to upper GI bleed. She is treated with Protonix. Her hematocrit has been staying stable. She has refused many interventions (3) Type II diabetes mellitus with complication, uncontrolled: Status: Chronic Assessment and plan: Poorly controlled. Her last A1c was over 13. She does not want interventions. (4) Cholelithiasis: Status: Acute Assessment and plan: She has large gallstone which could be causing some of her gastritis. She is not a surgical candidate (5) Palliative care patient: Status: Acute Assessment and plan: I have called her brother Navi Grewal on multiple occasions and have left voicemails to return my call. He did agree to the DNR/DNI. But he has wanted other interventions in the past. Paulette clearly does not want interventions at this time. She is very vocal in stating this. I do think Paulette would be best served by transitioning to [employer]. Unfortunately I cannot reach her brother to move in this direction. Keep trying. Subjective Subjective Interval history since last seen: Paulette states that she is feeling much much better. She feels that she has strength, no abdominal pain, no chest pain or shortness of breath. Exam Narrative Exam Narrative: Paulette was in a very cheery mood. She is anxious to get back [place] but overall feeling much much better. Resp Effort & Inspection: normal respiratory effort and able to speak in complete sentences Auscultation: clear to auscultation bilaterally Cardio Rate: regular rate Heart Sounds: murmur Objective Last Vital Signs Temp 98.2 F 05/12/21 23:45 Pulse 75 05/12/21 23:45 Resp 18 05/12/21 23:45 BP 110/60 05/12/21 23:45 Pulse Ox 95 05/12/21 23:45 Laboratory Results - last 24 hr 05/12/21 05/13/21 05/13/21 07:05 07:20 07:20 WBC 7.87 RBC 3.59 L Hgb 7.7 L Hct 27.3 L MCV 76.0 L MCH 21.4 L MCHC 28.2 L RDW 22.8 H Plt Count 264 MPV Immature Gran % 0.9 Neutrophils % 64.3 Lymphocytes % 22.0 Monocytes % 10.0 Eosinophils % 2.4 Basophils % 0.4 Nucleated RBC % 0 Absolute Neutrophils 5.06 Absolute Lymphocytes 1.73 Absolute Monocytes 0.79 Absolute Eosinophils 0.19 Absolute Basophils 0.03 RBC Morphology See Below Polychromasia Present Hypochromasia 1+ Poikilocytosis 2+ Anisocytosis 2+ Sodium 144 Potassium 3.5 Chloride 111 H Carbon Dioxide 25.9 Anion Gap 7.1 BUN 15 Creatinine 0.9 Estimated GFR/1.73 m2 >= 60.00 Glucose 137 H Calcium 8.6 Magnesium 1.8 Procalcitonin 0.2
--- NOTE | 2021-05-13 10:54 | DSE_ITS ---
Date of service: 05/13/21 Time of Service: 10:54 DS: Diagnosis Discharge Diagnosis (1) UGIB (upper gastrointestinal bleed): Status: Resolved Asessment and Plan: Urine culture grew Proteus mirabilis which was pansensitive except for resistance to nitrofurantoin. Blood culture showed no growth. Patient was treated on Rocephin from May 06, 2021 through May 10, 2021. When her IV was lost she was given a dose of fosfomycin 3 g orally.Patient presented with coffee-ground emesis from the intermediate but after admission to the hospital had no further episodes of emesis no hematochezia. Patient was empirically treated with Protonix and Carafate. Surgical consultation was obtained who recommended medical treatment. No EGD or colonoscopy was performed during this admission. Patient was transfused 1 unit packed red cells with transient rise in her hemoglobin to 9.9 g before drifting down into the mid sevens. Hemoglobin has remained stable between 7.4 and 7.8 for the last 4 days of her hospitalization. Patient was treated with parenteral iron but when she lost her IV it was switched to oral iron supplementation. (2) Hypoglycemia: Status: Resolved Asessment and Plan: Hypoglycemia resolved with IV dextrose. Long-acting insulin was discontinued in light of her poor oral appetite. She will be discharged back to intermediate on sliding scale NovoLog. (3) COVID-19: Status: Resolved Asessment and Plan: Patient tested positive for SARS-CoV-2 nasal PCR. Patient had no hypoxemia no evidence of pneumonia on chest x-ray. She was treated with short course of Remdesivir for 5 days. She did not require Decadron and did not require any Mahin 2 inhibitors. (4) Anemia due to acute blood loss: Status: Chronic Asessment and Plan: Patient's anemia is treated with 1 unit of packed red cells on admission. Because of loss IV no further IV iron are blood was given but she was started on oral iron supplementation. She was empirically treated for her hematemesis with Carafate and Protonix. (5) Acute UTI: Status: Resolved Asessment and Plan: Urine culture grew Proteus mirabilis which was pansensitive except for resistance to nitrofurantoin. Blood culture showed no growth. Patient was treated on Rocephin from May 06, 2021 through May 10, 2021. When her IV was lost she was given a dose of fosfomycin 3 g orally. (6) Nausea & vomiting: Status: Resolved (7) Constipation: Status: Resolved (8) Failure to thrive: Status: Chronic Asessment and Plan: Patient was started on Marinol for appetite stimulation. (9) Type II diabetes mellitus with complication, uncontrolled: Status: Chronic Asessment and Plan: Patient Hypoglycemia was treated with D5W. Long- acting insulin including her Trulicity and Lantus were discontinued. Kept on a low-dose NovoLog sliding scale but did not require treatment. (10) Schizophrenia: Asessment and Plan: Patient was kept on her home dose of olanzapine 5 mg twice daily. (11) DVT prophylaxis: Status: Resolved Asessment and Plan: SCDs were applied as she was not a candidate for chemical prophylaxis in light of her upper GI bleeding. (12) Discharge planning issues: Status: Resolved Asessment and Plan: Patient is discharged back to the [facility] for continued long-term management. Discharge Plan Disposition Patient Disposition: I[facility] (LEVEL 2) [facility] Condition: Improving Discharge Details Reason For Visit: Upper GI Bleeding,Anemia of Acute GI Bleeding,UTI Admit Date/Time: 05/06/21 13:36 Admit Provider: Alina Zendejas Attending Provider: Alina Zendejas Primary Care Provider: Yumiko Israel [facility] Hospital Course: Ms Angela is an 80 year old female with PMHx of IDDM2, schizophrenia, dementia, prior UTIs, who was brought to [facility] ED from the [facility] where she resides after being witnessed to have two episodes of coffee-ground emesis and having very poor PO intake for the last week. She is hemodynamically stable in the ED. She was hemoccult negative on rectal exam in the ED. Her hemoglobin was 7.7, down from 10-11 in 01/01. 1 unit of blood was ordered. She was also found to have a UTI by UA. She was treated with an octreotide bolus as well as with IV protonix. She was given a dose of empiric ceftriaxone for the UTI. Admission hemoglobin is 7.7 g where is her baseline hemoglobin had been 10.2 g in December 2020. Patient was transfused 1 unit of packed red cells bring her hemoglobin up to 9.9 g on the night of admission. Subsequently her hemoglobin drifted downward into the mid sevens her final hemoglobin 7.7 g at discharge. Patient was started on IV venofer and was treated for her UTI with Rocephin however when her midline began leaking the midline had to be removed and she was treated with oral iron supplementation for anemia. For her apparent upper GI bleeding she was placed on Protonix and Carafate empirically. Surgical consultation was obtained with Dr. Yuly Calle who deferred performing an EGD as the patient was hemodynamically stable and not having any further hematemesis and because of patient's rectal exam was negative for occult blood. Patient is hypoglycemia was treated with IV D5W however when her midline became nonfunctional all IV fluids and IV meds were discontinued. She was converted to oral medications. Her hypokalemia was treated with potassium supplementation. On the day of discharge her BMP was stable with a BUN of 15 creatinine 0.9 and normal potassium of 3.5. Magnesium level was also corrected from a low of 1.5- 1.8. On the day of discharge her CBC showed a stable anemia with hemoglobin 7.7 g and hematocrit 27%. White count was normal at 7800. Her UTI was initially treated with ceftriaxone but when her IV was lost she was given fosfomycin 3 g. For her poor oral appetite she was placed on Marinol for appetite stimulation. She was continued on her Zyprexa for her schizophrenia. Patient experienced some constipation while here in the hospital which was treated with Senokot and docusate. For her Covid infection patient was treated with Remdesivir and received 5 days of Remdesivir. Patient never experienced any hypoxemia and therefore did not require Decadron nor did she receive baricitinib. Radiologic imaging on admission included chest x-ray CT of the head and an abdominal pelvic CT. Head CT was performed because of acute mental status change and showed no acute intracranial findings. She has involutional atrophy consistent with her age. Chest x-ray showed no acute pulmonary findings. Abdominal and pelvic CT demonstrated multiple large gallstones but no hepatic ductal dilatation and no evidence of cholecystitis. She has evidence of chronic calcific pancreatitis but no acute pancreatitis. She has small nonobstructive renal calculi bilaterally and benign renal cysts. CT showed abundant fecal material in the transverse colon distal colon with rectal distention. This was treated with enemas and stool softeners and stool laxatives. Her hypoglycemia resolved and blood sugars were monitored and low-dose NovoLog sliding scale was used for coverage. She was kept off of all long-acting insulin. Home Meds and New Rx's Prescriptions: New dronabinol 2.5 mg Capsule 5 mg PO BID Qty: 60 RF: 0 ferrous sulfate 325 mg (65 mg iron) Tablet 325 mg PO BID Qty: 60 RF: 0 folic acid 1 mg Tablet 1 mg PO DAILY Qty: 30 RF: 0 magnesium oxide 400 mg (241.3 mg magnesium) Tablet 800 mg PO BID Qty: 30 RF: 0 pantoprazole 40 mg Tablet,Delayed Release (Dr/Ec) 40 mg PO BID@729,1999 Qty: 60 RF: 0 sucralfate 1 gram Tablet 1 g PO QACHS Qty: 120 RF: 0 sennosides [Senokot] 8.6 mg Tablet 8.6 mg PO BID Qty: 60 RF: 0 docusate sodium [Colace] 100 mg Capsule 100 mg PO BID Qty: 60 RF: 0 bisacodyl 5 mg Tablet,Delayed Release (Dr/Ec) 5 mg PO DAILY PRN PRNQty: 30 RF: 0 cholecalciferol (vitamin D3) 25 mcg (1,000 unit) Tablet 2,000 units PO DAILY Qty: 60 RF: 0 Continued sennosides [Senna Laxative] 8.6 MG tablet 8.6 mg PO DAILY RF: 0 acetaminophen 325 MG tablet 650 mg PO TID RF: 0 olanzapine [Zyprexa] 10 MG tablet 5 mg PO BID RF: 0 cholecalciferol (vitamin D3) 1,000 UNITS tablet 1,000 unit PO DAILY RF: 0 morphine 15 MG tablet 7.5 mg PO Q4H PRN PRNQty: 10 RF: 0 polyethylene glycol 3350 [Miralax] 17 gram/dose Powder 17 g PO Q OTHER DAY RF: 0 insulin aspart U-100 [Novolog Flexpen U-100 Insulin] 100 unit/mL (3 mL) Insul in Pen See Rx Instructions .ROUTE .COMPLEX Qty: 3 RF: 0 Discontinued cefpodoxime 100 mg tablet 100 mg PO BID Qty: 14 RF: 0 Lantus U-100 Insulin 100 unit/mL Cartridge 100 unit SUBCUT QHS RF: 0 Trulicity 3 mg/0.5 mL Pen Injector 3 mg SUBCUT DIRECTED RF: 0 Discharge Instructions Instructions: Iron Deficiency Anemia (GEN), COVID-19 (Coronavirus Disease 2019) (DC) Stand Alone Forms: Nursing Discharge Form Activity:: Activity as Tolerated Equipment/Supplies:: No Equipment Needed Diet:: Normal Diet Discharge Orders Discharge Orders: Discharge Order (Routine); Ordered 05/13/21 Ordered By: Juan Castillo Other Ambulatory Orders: Complete Blood Count w/Diff (Routine) Timeframe: 1 Week Facility: [facility] - Location: Laboratory Outpatient Ordered By: Juan Castillo DS: Summary Time Spent with Patient providing and/or coordinating discharge services: Greater than 30 minutes Status at Discharge Functional status at discharge: uses cane/walker Overall status at discharge: patient is back to baseline Mental Status: other (Impaired cognition secondary to schizophrenia and dementia) Speech and Movement: speech and movement normal Mood: other (Impaired cognition secondary to schizophrenia and dementia) Affect: normal affect Exam Narrative Exam Narrative: Elderly female sitting up in her chair seems to be disengaged. Try to encourage her to eat or drink and she politely said no thank you. She then closed her eyes and refused to talk to me further. Lungs are clear to auscultation Heart regular rate and rhythm Abdomen soft nondistended Lower extremities without peripheral cyanosis or edema. Psych Mental Status: other (Impaired cognition secondary to schizophrenia and dementia) Speech and Movement: speech and movement normal Mood: other (Impaired cognition secondary to schizophrenia and dementia) Affect: normal affect DS: Data Vitals/I&O Vitals and I&O: Vital Signs Temperature 37.4 C 05/13/21 08:30 Temperature Source Tympanic 05/13/21 08:30 Pulse 67 05/13/21 08:30 Pulse Rhythm Regular 05/13/21 10:27 Pulse 109 H 05/06/21 15:00 Respiratory Rate 18 05/13/21 08:30 Respiratory Effort Non-Labored 05/13/21 10:27 Respiratory Depth Normal 05/13/21 10:27 Respiratory Pattern Normal 05/13/21 10:27 Blood Pressure 110/53 L 05/13/21 08:30 Blood Pressure Mean 84 05/06/21 15:01 Blood Pressure Position Supine 05/06/21 11:50 Pulse Oximetry 98 05/13/21 08:30 Oxygen Delivery Method Room Air 05/13/21 08:30 Oxygen Flow Rate 0 05/13/21 08:30 Pain Level 0 05/12/21 23:45 Comment 05/10/21 07:47 Intake & Output 05/12/21 05/12/21 05/13/21 11:59 23:59 11:59 Intake Total 240 / 480 240 / 480 Output Total 550 / 750 200 / 750 Balance -310 / -270 40 / -270 Intake: Oral 240 / 480 240 / 480 Output: Urine 550 / 750 200 / 750 Other: Urine Color Yellow Yellow Yellow Urine Appearance Clear Clear Clear Comment pT was incont and voided 250ml in commode minimal output pT was very incont. Voiding Methods Bedside Commode Bedside Commode Diaper Diaper Diaper Incontinent Incontinent Incontinent Data Completed and Pending Labs on day of discharge: Labs from last 24 hours 05/13/21 05/13/21 05/13/21 07:20 07:20 07:00 WBC 7.87 RBC 3.59 L Hgb 7.7 L Hct 27.3 L MCV 76.0 L MCH 21.4 L MCHC 28.2 L RDW 22.8 H Plt Count 264 MPV Immature Gran % 0.9 Neutrophils % 64.3 Lymphocytes % 22.0 Monocytes % 10.0 Eosinophils % 2.4 Basophils % 0.4 Nucleated RBC % 0 Absolute Neutrophils 5.06 Absolute Lymphocytes 1.73 Absolute Monocytes 0.79 Absolute Eosinophils 0.19 Absolute Basophils 0.03 RBC Morphology See Below Polychromasia Present Hypochromasia 1+ Poikilocytosis 2+ Anisocytosis 2+ Sodium 144 Potassium 3.5 Chloride 111 H Carbon Dioxide 25.9 Anion Gap 7.1 BUN 15 Creatinine 0.9 Estimated GFR/1.73 m2 >= 60.00 Glucose 137 H Calcium 8.6 Magnesium 1.8 COVID-19 Source Pending SARS-CoV-2 (PCR) Pending Preliminary micro results at discharge 05/11/21 19:10 Blood Culture - Preliminary Blood NO GROWTH 24 HOURS 05/11/21 18:25 Blood Culture - Preliminary Blood NO GROWTH 24 HOURS PFSH All Active Problems Failure to thrive (Chronic) Anemia due to acute blood loss (Chronic) Anemia (Chronic) Palliative care patient (Acute) Type II diabetes mellitus with complication, uncontrolled (Chronic) Acute hyperglycemia (Acute) BEN (acute kidney injury) (Acute) Hyperglycemia (Acute) Medical History Dementia Diabetes mellitus type II, controlled, with no complications Schizophrenia Urinary tract infection Surgical History LEFT HIP FRACTURE (03/17/17) S/P NAIL AND FIXATION; DR. PARIS Social History Smoking/Tobacco Use Status: Former Tobacco Use Smoking risk assessment performed?: Yes Alcohol Intake: never Drug use: Never Substance use type: does not use Additional Social history: unable to answer.
--- NOTE | 2021-05-13 10:57 | NUR.NOTE ---
report given to LORETTA Connor at [facility]. Nursing Note:
--- NOTE | 2021-05-13 13:08 | PDOC.CMDIS ---
- If Service Date Differs Date of service: 05/13/21 Time of Service: 13:08 LACE Index Scoring Tool - Questions: Length of Stay (in days): 4 - 6 Acuity (Admit via E.D.?): Yes Comorbidities: Diabetes w/o Complication, Dementia E.D. Visits: 2 - Answers: Total Score: 14 Risk of Readmission: High Risk Care Management Discharge Reason for Hospitalization: Upper GI bleeding, anemia, UTI Discharge Plan: Paulette will return to the [facility] when medically cleared. CM coordinated transport via EMS. She will follow up with the facility provider and her discharge plan of care. Patient/Family Education Needs: Discharge summary sent to facility, guardian aware of discharge plan. Services Needed at Discharge: Longterm Facility (Return to the [facility]), Transportation ([facility] )
== END 2021-05-13 11:18 | disposition intermediate care facility (04) | DRG 377 ==
LOC: ER 14:26 → MS 15:13
PROVIDERS: Internal Medicine; Admitting Provider Internal Medicine; Emergency Provider Student in an Organized Health Care Education/Training Program; PCP Family Medicine; Visit Provider Internal Medicine
DX: K92.0 Hematemesis (principal); U07.1 COVID-19; D62 Acute posthemorrhagic anemia; N39.0 Urinary tract infection, site not specified; K86.1 Other chronic pancreatitis; F05 Delirium due to known physiological condition; F20.1 Disorganized schizophrenia; N17.9 Acute kidney failure, unspecified; E87.0 Hyperosmolality and hypernatremia; E11.65 Type 2 diabetes mellitus with hyperglycemia; F03.90 Unspecified dementia, unspecified severity, without behavioral disturbance, psychotic disturbance, mood disturbance, and anxiety; Z79.4 Long term (current) use of insulin; K59.00 Constipation, unspecified; Z66 Do not resuscitate; K80.20 Calculus of gallbladder without cholecystitis without obstruction; E86.0 Dehydration; R62.7 Adult failure to thrive; E11.649 Type 2 diabetes mellitus with hypoglycemia without coma; B96.4 Proteus (mirabilis) (morganii) as the cause of diseases classified elsewhere
CPT/HCPCS: 36410; 36415; 36430; 80048; 80053; 80061; 80076; 82306; 83690; 84145; 86850; 86900; 86901; 86920; 87040; 87077; 87635; 93005; 96361; 96365; 96366; 96372; 96374; 99221; 99231; 99285; 70450; 71045; 74177; 81003; 81015; 82607; 82728; 82746; 83540; 83550; 83605; 83735; 84100; 84295; 84484; 85014; 85018; 85025; 85379; 85610; 86140; 87086; 87186; 93010; 99223; 99232; 99233; 99239; J0131; J0248; J0696; J1100; J1756; J2354; J2405; J3480; J7060; P9016

== ENCOUNTER 2022-03-29 15:16 | Emergency (ER) | payer MEDICARE, MEDICAID, SELFPAY ==
[2022-03-29 15:14] VITALS: BP 136/75; PULSE 111; RESP 18; TEMP 37.3; O2SAT 92
--- NOTE | 2022-03-29 15:15 | DI.CT_ITS ---
Exam(s) CT HEAD WO EXAM: CT HEAD WO CLINICAL HISTORY: ams. TECHNIQUE: Imaging Protocol: Axial computed tomography images with coronal and sagittal reformatted images were created and reviewed COMPARISON: CT CT HEAD WO from 05/06/2021 FINDINGS: Ventricles and Extra axial spaces: Normal in size and morphology for the patient's age. Hemorrhage: None. Cerebral parenchyma: Atrophy. White matter changes consistent with small vessel disease. Midline shift: None. Brainstem/Cerebellum: Normal. Calvarium: Normal. Visualized Paranasal sinuses/Mastoids: Clear. IMPRESSION: No acute abnormality. RADIATION DOSE DELIVERED: 722.59mGy.cm Total DLP 722.59mGy.cm Total DLP DATA REPOSITORY: All CT scans at this facility are submitted to the National Radiology Data Registry (NRDR) Dose Index Registry (DIR) with the [employer] (ACR). RADIATION OPTIMIZATION: All CT scans at this facility use at least one of these dose optimization te chniques: automated exposure control; mA and/or kV adjustment per patient size (includes targeted exa ms where dose is matched to clinical indication); or iterative reconstruction.
--- NOTE | 2022-03-29 15:15 | RT.EKG_ITS ---
APPROVED REPORT Exam: Resting ECG Reason for Exam: [facility] Patient Location: E HR:109 bpm ECG Measurements Heart Rate 109 AXIS ID 150 P 53 QRSd 73 QRS 14 QT 325 T 34 QTc 437 Conclusion Sinus tachycardia...rate> 99 sinus tachycardia, normal axis, normal intervals, non ischemic
--- NOTE | 2022-03-29 15:45 | DI.RAD_ITS ---
Exam(s) XR CHEST 1V IN DI DEPT EXAM: XR CHEST 1V IN DI DEPT CLINICAL HISTORY: ams TECHNIQUE: 2D digital imaging was performed. COMPARISON: No exams were available for comparison FINDINGS: Exam is limited by poor pulmonary inflation and poor penetration. LUNGS: Clear. No pleural abnormality seen. HEART: Mildly enlarged. AORTA: Normal diameter. Calcified. BONES: Unremarkable for age. Soft tissues: Unremarkable. IMPRESSION: No acute findings. DATA REPOSITORY: RADIATION DOSE DELIVERED:
--- NOTE | 2022-03-29 15:53 | W.ED.GENAD ---
Discharge Plan Disposition Patient Disposition: Home Condition: Improving Discharge Details Clinical Impression: Urinary tract infection Primary Care Provider: Yumiko Israel ED Provider: Pedro Mcmillan Home Meds and New Rx's Prescriptions: New cefpodoxime 100 mg tablet 100 mg PO BID 7 Days Qty: 14 0RF Rx Instructions: must administer with a meal/food No Action insulin glargine [Lantus Solostar U-100 Insulin] 100 unit/mL (3 mL) insulin pen 24 unit subcut QAM acetaminophen 325 MG tablet 650 mg PO TID olanzapine [Zyprexa] 10 MG tablet 5 mg PO BID polyethylene glycol 3350 [Miralax] 17 gram/dose Powder 17 g PO Q OTHER DAY pantoprazole 40 mg Tablet,Delayed Release (Dr/Ec) 40 mg PO BID@ Qty: 60 0RF sennosides [Senokot] 8.6 mg Tablet 8.6 mg PO BID Qty: 60 0RF Discharge Instructions Instructions: Urinary Tract Infection in Women (ED) Medical Decision Making 81-year-old female presents with resolved altered mental status, report stating patient's AMS was preceding a bowel movement and resolved spontaneously, patient is arousable to voice and reactive following commands moderately tachycardic although afebrile feels warm to the touch, abdomen soft nontender, no external signs of trauma, consider viral syndrome versus electrolyte derangement versus hypoglycemia versus vasovagal episode versus ACS versus must consider intracranial process such as mass edema or bleed. Will obtain screening x-ray EKG CT head, labs fluids; will send COVID flu and RSV swab. Disposition pending reassessment and results Resting comfortably no acute distress. Evidence of UTI. Given dose of ceftriaxone here in department. Will be transition to p.o. cefpodoxime for discharge home. HPI General Date/Time Provider Initiated Documentation: 03/29/22 15:28. HPI Narrative: 81-year-old female history of diabetes presents referred in from senior living for evaluation of altered mental status. Brief in nature was related to her having a bowel movement resolved before arrival. Patient denies any current complaints. No external signs of trauma. History physical limited by likely dementia Related Data Home Medications Medication Instructions Recorded Confirmed acetaminophen 325 mg tablet 650 mg PO TID 03/17/17 03/29/22 olanzapine 10 mg tablet (Zyprexa) 5 mg PO BID 03/17/17 03/29/22 polyethylene glycol 3350 17 17 g PO Q OTHER DAY 01/01/21 03/29/22 gram/dose oral powder (Miralax) pantoprazole 40 mg tablet,delayed 40 mg PO BID@729,1999 #60 tabs 05/13/21 03/29/22 release sennosides 8.6 mg tablet (Senokot) 8.6 mg PO BID #60 tabs 05/13/21 03/29/22 insulin glargine 100 unit/mL (3 24 unit subcut QAM 07/30/21 03/29/22 mL) subcutaneous pen (Lantus Solostar U-100 Insulin) cefpodoxime 100 mg tablet 100 mg PO BID 7 days #14 tabs 03/29/22 Previous Rx's Medication Instructions Recorded pantoprazole 40 mg tablet,delayed 40 mg PO BID@ #60 tabs 05/13/21 release sennosides 8.6 mg tablet (Senokot) 8.6 mg PO BID #60 tabs 05/13/21 cefpodoxime 100 mg tablet 100 mg PO BID 7 days #14 tabs 03/29/22 Allergies Allergy/AdvReac Type Severity Reaction Status Date / Time No Known Allergies Allergy Unverified 03/29/22 15:58 General Stated Complaint: AMS/LOC SHANTI: 3 Review of Systems Narrative: Review of Systems Constitutional: negative Eyes: negative ENT: negative Cardiovascular: negative Respiratory: negative Gastrointestinal: negative : negative Musculoskeletal: negative Skin: negative Neurologic: AMS Psych: negative PFSH All Active Problems (Updated 03/29/22 @ 19:03 by Pedro Mcmillan MD) Urinary tract infection (Acute) Counseling regarding advanced care planning and goals of care (Acute) Cholelithiasis (Acute) Failure to thrive (Chronic) Anemia due to acute blood loss (Chronic) Anemia (Chronic) Type II diabetes mellitus with complication, uncontrolled (Chronic) Hyperglycemia (Acute) Medical History (Updated 03/29/22 @ 19:03 by Pedro Mcmillan MD) Dementia Diabetes mellitus type II, controlled, with no complications Palliative care patient Schizophrenia Urinary tract infection Surgical History LEFT HIP FRACTURE (12/05/17) S/P NAIL AND FIXATION; DR. PARIS Social History Smoking/Tobacco Use Status: Former Tobacco Use Smoking risk assessment performed?: Yes Alcohol Intake: never Drug use: Never Substance use type: does not use Additional Social history: unable to answer. Exam Narrative Exam Narrative: Physical Examination General: alert, awake, cooperative, resting comfortably, no acute distress HEENT: normocephalic, atraumatic; PERRL, EOM intact, conjunctiva normal; no nasal discharge; moist mucous membranes, oral and pharyngeal mucosa normal, tolerating secretions Neck: supple, trachea midline; full ROM Chest: normal to inspection Respiratory: normal respiratory effort, speaking in full sentences, clear to auscultation, no wheezing, rales or rhonchi Cardiac: Tachycardia, regular rhythm, S1S2 intact, no murmurs rubs or gallops GI: abdomen soft, non-tender, non-distended; no palpable mass or hepatosplenomegaly Skin: no lesions, rashes or trauma appreciated Neuro: Arousable to voice, moving all extremities to command Extremities: No peripheral edema no signs of trauma Psych: Appropriate mood and affect Course Vital Signs Vital signs: Vital Signs Temperature 37.3 C 03/29/22 15:14 Pulse 111 H 03/29/22 15:14 Respiratory Rate 18 03/29/22 15:14 Blood Pressure 136/75 03/29/22 15:14 Pulse Oximetry 92 03/29/22 15:14 Temperature 37.3 C 03/29/22 15:14 Temperature Source Temporal Artery Scan 03/29/22 15:14 Pulse 111 H 03/29/22 15:14 Respiratory Rate 18 03/29/22 15:14 Blood Pressure 136/75 03/29/22 15:14 Blood Pressure Position Sitting 03/29/22 15:14 Pulse Oximetry 92 03/29/22 15:14 Oxygen Delivery Method Room Air 03/29/22 15:14 Oxygen Flow Rate 0 03/29/22 15:14 Pain Level 0 03/29/22 15:14
--- NOTE | 2022-03-29 16:29 | DI.VRAD_ITS ---
PROCEDURE INFORMATION: Exam: CT Head Without Contrast Exam date and time: 03/29/2022 4:09 PM Age: 81 years old Clinical indication: Altered mental status/memory loss; Patient HX: Ams/loc TECHNIQUE: Imaging protocol: Computed tomography of the head without contrast. COMPARISON: CT HEAD WO 05/06/2021 2:01 PM FINDINGS: Brain: There are areas of diminished density in the white matter bilaterally . Findings likely represent foci of chronic small vessel ischemic changes. Cerebrum is unremarkable. Duenas-white matter differentiation is intact. No mass lesion is seen. No mass effect or midline shift. Thalamus is unremarkable. No evidence of hemorrhage. Cerebellum is unremarkable. No posterior fossa mass lesion or mass effect. No pathologic edema. No evidence of cerebellar hemorrhage. Cerebral ventricles: No ventriculomegaly. Paranasal sinuses: Visualized sinuses are unremarkable. No fluid levels. Mastoid air cells: Visualized mastoid air cells are well aerated. Bones/joints: Unremarkable. No acute fracture. Soft tissues: Unremarkable. IMPRESSION: 1. No evidence of acute pathology. 2. Areas of diminished density in bilateral white matter likely representing chronic small vessel ischemic changes. Dictated and Authenticated by: Delvin Johnson MD. Ordering:PORTILLO Vasquez MD
--- NOTE | 2022-03-29 16:30 | DI.VRAD_ITS ---
PROCEDURE INFORMATION: Exam: XR Chest Exam date and time: 03/29/2022 4:16 PM Age: 81 years old Clinical indication: Other: AMS TECHNIQUE: Imaging protocol: Radiologic exam of the chest. Views: 1 view. COMPARISON: CR XR PORTABLE CHEST AP 05/06/2021 2:06 PM FINDINGS: Lungs: No infiltrates. No mass lesion or nodule seen. Pleural spaces: Unremarkable. No pleural effusion. No pneumothorax. Heart/Mediastinum: Unremarkable. No cardiomegaly. Bones/joints: Unremarkable. IMPRESSION: No evidence of pathology. Dictated and Authenticated by: Delvin Johnson MD. Ordering:PDOMENICO Vasquez MD
[2022-03-29 16:54] LABS: Bilirubin Negative (Negative); Blood Moderate (Negative); Clarity Turbid (Clear); Glucose 500 mg/dL (Negative); Ketones Negative (Negative); Leukocyte Esterase Large (Negative); Nitrite Negative (Negative); Specific Gravity >= 1.030 (1.005-1.025); Urobilinogen 0.2 EU/dL (Up TO 0.2); pH 6.5 (5-8)
[2022-03-29] MEDS: Ondansetron 4 MG/2 ML VIAL IVP (17:00)
[2022-03-29] MEDS: Normal Saline 500 ML 1000 ML IV (17:00)
[2022-03-29 17:02] VITALS: RESP 18
[2022-03-29 17:03] LABS: *AMPHETAMINES SCREEN URINE Negative (Negative); *BARBITURATES SCREEN URINE Negative (Negative); *BENZODIAZEPINES SCREEN URINE Negative (Negative); C & S Indicated? Yes; Cannabinoids THC Negative (Negative); Cocaine Screen,Urine Negative (Negative); METHADONE URINE SCREEN Negative (Negative); OPIATES URINE SCREEN Negative (Negative); WBC >50 HPF (0-5)
[2022-03-29 17:04] LABS: Tricyclic Antidepressants Negative (Negative)
[2022-03-29 17:25] LABS: COVID-19 PCR Negative (Negative); Influenza A PCR Negative (Negative); Influenza B PCR Negative (Negative); RSV PCR Negative (Negative)
[2022-03-29 17:31] LABS: Source Nasopharynx
[2022-03-29] MEDS: cefTRIAXone 1,000 MG in Normal Saline 50 ML 100 MG IVPB (18:47)
[2022-03-29 18:57] LABS: Abs Immature Grans 0.04 10^3/uL (0.0-0.06); Absolute Basophil Count 0.04 10^3/uL (0.0-0.2); Absolute Lymphocyte Count 0.43 10^3/uL (1.2-3.4); Absolute Monocyte Count 1.55 10^3/uL (0.1-0.8); Basophils % 0.3; Eosinophils % 0.8; HGB 10.5 g/dL (11.2-15.7); Immature Grans % 0.3; Lymphocytes % 3.6; MCH 25.2 pg (27.0-33.0); MCHC 30.9 % (32.0-36.0); MCV 82 fL (80-95); MPV 11.3 fL (8.0-11.0); Monocytes % 13.1; Neutrophils % 81.9; Platelet Count 318 10^3/uL (130-400); RBC 4.17 10^6/uL (3.93-5.22); RDW 15.1 % (11.7-14.6); RDW-SD 45.4 fL; WBC 11.81 10^3/uL (4.4-10.8)
[2022-03-29 19:01] LABS: Absolute Eosinophil Count 0.09 10^3/uL (0.0-0.7); Absolute Neutrophil Count 9.67 10^3/uL (1.2-6.7)
[2022-03-29 19:18] LABS: ALT 10 U/L (14-59); AST 10 U/L (15-37); Albumin 2.9 g/dL (3.4-5.0); Alkaline Phosphatase 100 U/L (46-116); Anion Gap 12.2 mmol/L (3-11); BUN 33 mg/dL (7-18); Bilirubin, Total 0.4 mg/dL (0.2-1.0); CO2 25.8 mmol/L (21.0-32.0); Calcium 9.5 mg/dL (8.5-10.1); Chloride 100 mmol/L (98-107); Estimated GFR 24.48 (mL/min/1.73m2); Glucose 343 mg/dL (74-106); Lipase 133 U/L (73-393); Potassium 3.8 mmol/L (3.5-5.1); Sodium 138 mmol/L (136-145); Total Protein 7.5 g/dL (6.4-8.2); Troponin I < 50 ng/L (<or=60)
[2022-03-29 19:35] LABS: ETHANOL BLOOD < 3.0 mg/dL (<10)
[2022-03-29 19:40] LABS: Diff Comment Agrees w/ Instrument; RBC Morphology Normal
--- NOTE | 2022-03-31 08:52 | NUR.NOTE ---
Nursing Note: Accessed chart to determine orders for EKG and to determine whether or not one needs to be cancelled. EKG needs to be read.
== END 2022-03-29 21:07 | disposition home or self-care (01) ==
PROVIDERS: Emergency Provider Emergency Medicine; PCP Family Medicine
DX: N39.0 Urinary tract infection, site not specified (principal); E11.9 Type 2 diabetes mellitus without complications; Z20.822 Contact with and (suspected) exposure to COVID-19; Z79.899 Other long term (current) drug therapy
CPT/HCPCS: 36415; 80053; 80307; 83690; 87077; 87637; 93005; 96365; 96375; 99284; 99285; 70450; 71045; 80320; 81003; 81015; 84443; 84484; 85025; 87086; 87186; 93010; J0696; J2405

== ENCOUNTER 2022-08-06 17:33 | Outpatient (REF) | payer MEDICARE, OTHER, MEDICAID, SELFPAY ==
[2022-08-06 18:09] LABS: Abs Immature Grans 0.03 10^3/uL (0.0-0.06); Absolute Eosinophil Count 0.24 10^3/uL (0.0-0.7); Absolute Lymphocyte Count 1.89 10^3/uL (1.2-3.4); Absolute Monocyte Count 0.54 10^3/uL (0.1-0.8); Absolute Neutrophil Count 5.94 10^3/uL (1.2-6.7); Basophils % 1.1; Eosinophils % 2.7; HCT 34.8 % (36.0-46.0); HGB 10.6 g/dL (11.2-15.7); Immature Grans % 0.3; Lymphocytes % 21.6; MCH 25.1 pg (27.0-33.0); MCHC 30.5 % (32.0-36.0); MCV 83 fL (80-95); MPV 11.4 fL (8.0-11.0); Monocytes % 6.2; Neutrophils % 68.1; Platelet Count 406 10^3/uL (130-400); RBC 4.22 10^6/uL (3.93-5.22); RDW 14.7 % (11.7-14.6); RDW-SD 44.4 fL; WBC 8.74 10^3/uL (4.4-10.8)
[2022-08-06 18:20] LABS: Iron 26 ug/dL (50-170); Total Iron Binding Capacity 313 ug/dL (250-450); Transferrin Sat 8 % (15-50)
[2022-08-06 18:43] LABS: Vitamin D 25 Total 19.5 ng/mL (30-100)
[2022-08-06 18:49] LABS: ALT 15 U/L (14-59); AST 10 U/L (15-37); Albumin 3.3 g/dL (3.4-5.0); Alkaline Phosphatase 120 U/L (46-116); Anion Gap 7.6 mmol/L (3-11); BUN 23 mg/dL (7-18); Bilirubin, Total 0.2 mg/dL (0.2-1.0); CO2 28.4 mmol/L (21.0-32.0); CREATININE 1.5 mg/dL (0.55-1.02); Calcium 9.5 mg/dL (8.5-10.1); Chloride 101 mmol/L (98-107); Estimated GFR 34.58 (mL/min/1.73m2); Ferritin 16 ng/mL (8-252); Glucose 299 mg/dL (74-106); Hemoglobin A1C 9.2 % (<5.7); Magnesium 1.7 mg/dL (1.8-2.4); Potassium 4.5 mmol/L (3.5-5.1); Sodium 137 mmol/L (136-145); TSH (W/Ref FT4) 1.47 uIU/mL (0.36-3.74); Total Protein 7.3 g/dL (6.4-8.2); Vitamin B12 469 pg/mL (193-986)
[2022-08-06 19:10] LABS: NT-proBNP 82 pg/mL (<300)
[2022-08-06 19:46] LABS: Folate 14.9 ng/mL (8.6-20.0)
== END 2022-08-06 17:34 | disposition home or self-care (01) ==
LOC: LBN 17:33
PROVIDERS: PCP Family Medicine; Visit Provider Nurse Practitioner Gerontology
DX: R68.89 Other general symptoms and signs (principal)
CPT/HCPCS: 80053; 82306; 82607; 82728; 82746; 83036; 83540; 83550; 83735; 83880; 84443; 85025

== ENCOUNTER 2022-09-16 15:45 | Emergency (ER) | payer MEDICARE, MEDICAID, SELFPAY ==
[2022-09-16 15:48] VITALS: BP 105/65; PULSE 109; RESP 18; TEMP 36.7; O2SAT 97
--- NOTE | 2022-09-16 16:15 | RT.EKG_ITS ---
APPROVED REPORT Exam: Resting ECG Reason for Exam: Chest Pain Patient Location: E HR:95 bpm ECG Measurements Heart Rate 95 AXIS PA 172 P 46 QRSd 70 QRS 11 QT 341 T 29 QTc 429 Conclusion Sinus rhythm...normal P axis, V-rate 60- 99
--- NOTE | 2022-09-16 16:26 | ED.GENADUL_ITS ---
Discharge Plan Disposition [facility] Condition: Stable Discharge Details Clinical Impression: Gastroenteritis, Nausea vomiting and diarrhea Primary Care Provider: Yumiko Israel ED Provider: Naheed Leslie Home Meds and New Rx's Prescriptions: Continued insulin glargine [Lantus Solostar U-100 Insulin] 100 unit/mL (3 mL) insulin pen 24 unit subcut QAM acetaminophen 325 MG tablet 650 mg PO TID olanzapine [Zyprexa] 10 MG tablet 5 mg PO BID polyethylene glycol 3350 [Miralax] 17 gram/dose Powder 17 g PO Q OTHER DAY pantoprazole 40 mg Tablet,Delayed Release (Dr/Ec) 40 mg PO BID@ Qty: 60 0RF sennosides [Senokot] 8.6 mg Tablet 8.6 mg PO BID Qty: 60 0RF Discharge Instructions Instructions: Gastroenteritis (ED), Acute Nausea and Vomiting (ED) Additional Instructions: Take the Zofran 1 tablet up to 3 times daily as needed for nausea vomiting. CT abdomen pelvis shows no evidence for bowel obstruction. Suspect diarrheal illness. Follow up with primary care provider in 3-5 days. Return to ED sooner if any worsening or concerns. Increase oral fluids. Referrals: Yumiko Israel [Primary Care Provider] - 2 days Medical Decision Making 81-year-old female presents to the ER with a chief complaint of abdominal pain nausea vomiting diarrhea. Patient reports that it began at 9:00 this morning. She does state that she has generalized abdominal pain and distention. She is at the [facility] for dementia. Other past medical history includes type 2 diabetes, schizophrenia UTI and left hip fracture. Work-up ordered including CBC CMP, urinalysis troponin x2 EKG Zofran and normal saline. Will order CT abdomen pelvis. Differential diagnosis includes but not limited to gastroenteritis, small bowel obstruction CBC shows a white blood cell count of 12.23, platelets 401, absolute neutrophils 9.81, BUN 31 creatinine 1.7 GFR is 29.76, glucose 261 alk phos is elevated at 121 lipase is elevated at 181. Initial troponin within normal limits EKG is normal sinus rhythm. CT abdomen pelvis with contrast changed to without due to kidney functions. CT shows no evidence for bowel obstruction. There are gallstones no inflammatory change no evidence of cholecystitis. There is moderate fluid in the small bowel and colon since for suspected diarrheal illness. Other chronic changes as noted. Patient okay to be returned back to the [facility]. EMS here for transport back to the [facility]. Patient did have a diarrheal stool which was cleaned by staff anesthetist. Report called to detention by RN. Patient remained hemodynamically stable throughout the remainder of her stay here. This text was generated using [employer] system, please disregard any oddities of phrase or misspellings. Medical Records Medical records reviewed: Yes I reviewed the patient's medical records. Lab Data Lab results reviewed: Yes I reviewed the patient's lab results. Labs: Laboratory Tests Range/Units 09/16/22 09/16/22 09/16/22 16:45 16:45 16:45 WBC (4.4-10.8) 10^3/uL 12.23 H RBC (3.93-5.22) 10^6/uL 4.83 Hgb (11.2-15.7) g/dL 11.7 Hct (36.0-46.0) % 39.1 MCV (80-95) fL 81 MCH (27.0-33.0) pg 24.2 L MCHC (32.0-36.0) % 29.9 L RDW (11.7-14.6) % 15.9 H Plt Count (130-400) 10^3/uL 401 H MPV (8.0-11.0) fL 11.0 Immature Gran % 0.4 Neutrophils % 80.2 Lymphocytes % 11.8 Monocytes % 6.2 Eosinophils % 0.7 Basophils % 0.7 Nucleated RBC % (0.0-0.3) % 0.0 Absolute Neutrophils (1.2-6.7) 10^3/uL 9.81 H Absolute Lymphocytes (1.2-3.4) 10^3/uL 1.44 Absolute Monocytes (0.1-0.8) 10^3/uL 0.76 Absolute Eosinophils (0.0-0.7) 10^3/uL 0.09 Absolute Basophils (0.0-0.2) 10^3/uL 0.09 Sodium (136-145) mmol/L 137 Potassium (3.5-5.1) mmol/L 4.8 Chloride (98-107) mmol/L 102 Carbon Dioxide (21.0-32.0) mmol/L 27.0 Anion Gap (3-11) mmol/L 8.0 BUN (7-18) mg/dL 31 H Creatinine (0.55-1.02) mg/dL 1.7 H Est GFR (CKD-EPI 2020) (mL/min/1.73m2) 29.76 Glucose (74-106) mg/dL 261 H Calcium (8.5-10.1) mg/dL 10.0 Magnesium (1.8-2.4) mg/dL 2.0 Total Bilirubin (0.2-1.0) mg/dL 0.4 AST (15-37) U/L 11 L ALT (14-59) U/L 12 L Alkaline Phosphatase (46-116) U/L 121 H Troponin I (<or=60) ng/L < 50 Total Protein (6.4-8.2) g/dL 8.6 H Albumin (3.4-5.0) g/dL 3.5 Lipase (16-77) U/L 181 H HPI General Mode of arrival: EMS . Date/Time Provider Initiated Documentation: 09/16/22 15:54 . Limitations to Documentation: no limitations . Information obtained by: patient, RN notes reviewed and old records reviewed . HPI Narrative: 81-year-old female presents to the ER with a chief complaint of abdominal pain nausea vomiting diarrhea. Patient reports that it began at 9:00 this morning. She does state that she has generalized abdominal pain and distention. She is at the [facility] for dementia. Other past medical history includes type 2 diabetes, schizophrenia UTI and left hip fracture. Related Data Home Medications Medication Instructions Recorded Confirmed acetaminophen 325 mg tablet 650 mg PO TID 03/17/17 03/29/22 olanzapine 10 mg tablet (Zyprexa) 5 mg PO BID 03/17/17 03/29/22 polyethylene glycol 3350 17 17 g PO Q OTHER DAY 01/01/21 03/29/22 gram/dose oral powder (Miralax) pantoprazole 40 mg tablet,delayed 40 mg PO BID@0730,1999 #60 tabs 05/13/21 03/29/22 release sennosides 8.6 mg tablet (Senokot) 8.6 mg PO BID #60 tabs 05/13/21 03/29/22 insulin glargine 100 unit/mL (3 24 unit subcut QAM 07/30/21 03/29/22 mL) subcutaneous pen (Lantus Solostar U-100 Insulin) Previous Rx's Medication Instructions Recorded pantoprazole 40 mg tablet,delayed 40 mg PO BID@07 #60 tabs 05/13/21 release sennosides 8.6 mg tablet (Senokot) 8.6 mg PO BID #60 tabs 05/13/21 Allergies Allergy/AdvReac Type Severity Reaction Status Date / Time No Known Allergies Allergy Unverified 03/29/22 15:58 General Stated Complaint: Abd Prob SHANTI: 3 Review of Systems All systems reviewed & are unremarkable except as noted in HPI and below Gastrointestinal Gastrointestinal: Reports abdominal pain, Reports diarrhea, Reports nausea, Reports vomiting and Reports other (Distention) PFSH All Active Problems (Updated 09/16/22 @ 19:52 by Naheed Leslie NP) Gastroenteritis (Acute) Nausea vomiting and diarrhea (Acute) Counseling regarding advanced care planning and goals of care (Acute) Cholelithiasis (Acute) Failure to thrive (Chronic) Anemia due to acute blood loss (Chronic) Anemia (Chronic) Type II diabetes mellitus with complication, uncontrolled (Chronic) Hyperglycemia (Acute) Medical History Dementia Diabetes mellitus type II, controlled, with no complications Palliative care patient Schizophrenia Urinary tract infection Surgical History LEFT HIP FRACTURE (03/17/17) S/P NAIL AND FIXATION; DR. PARIS Social History Smoking/Tobacco Use Status: Former Tobacco Use Smoking risk assessment performed?: Yes Alcohol Intake: never Drug use: Never Substance use type: does not use Additional Social history: unable to answer. Exam Narrative Exam Narrative: Constitutional: Alert and oriented x2. Appears stated age. Normal body habitus. Head: Normocephalic, no trauma. Eyes: Pupils PERRL, Red reflex noted, EOM's intact. Eyelids symmetrical without lesions, discharge, or swelling. ENT: Bilateral TM's WNL, External ear normal to inspection, no mastoid TTP, swelling, or erythema, Nasal turbinates WNL, no nasal discharge. Normal dentition, Posterior pharynx WNL, no exudate. Chest: RRR, Normal S1, S2, distal pulses intact. Resp: Lungs clear to auscultation bilaterally, no wheezes, rales, or rhonchi. Abdomen: Distended, hypo-active bowel sounds all 4 quads. Musculoskeletal: Unable to assess gait, 5/5 strength to all four extremities. Skin: No suspicious rashes or lesions. Capillary refill less than 2 sec. Neurologic: Cranial nerves II-XII intact. Alert and oriented x 3. Motor: No deficits noted. Sensory: Intact bilaterally all 4 extremities. Reflexes: DTR's intact bilaterally.. Hematologic/Lymphatic: No ecchymosis, no lymphadenopathy. Course Vital Signs Vital signs: Vital Signs Temperature 36.7 C 09/16/22 15:48 Pulse 109 H 09/16/22 15:48 Respiratory Rate 18 09/16/22 15:48 Blood Pressure 105/65 09/16/22 15:48 Pulse Oximetry 97 09/16/22 15:48 Temperature 36.7 C 09/16/22 15:48 Temperature Source Temporal Artery Scan 09/16/22 15:48 Pulse 109 H 09/16/22 15:48 Respiratory Rate 18 09/16/22 15:48 Respiratory Effort Normal, Non-Labored 09/16/22 15:49 Blood Pressure 105/65 09/16/22 15:48 Pulse Oximetry 97 09/16/22 15:48 Oxygen Delivery Method Room Air 09/16/22 15:48 Oxygen Flow Rate 0 09/16/22 15:48
[2022-09-16] MEDS: Normal Saline 500 ML IV (16:47)
[2022-09-16 16:51] LABS: Abs Immature Grans 0.05 10^3/uL (0.0-0.06); Absolute Basophil Count 0.09 10^3/uL (0.0-0.2); Absolute Lymphocyte Count 1.44 10^3/uL (1.2-3.4); Absolute Monocyte Count 0.76 10^3/uL (0.1-0.8); Absolute Neutrophil Count 9.81 10^3/uL (1.2-6.7); Basophils % 0.7; Eosinophils % 0.7; HCT 39.1 % (36.0-46.0); HGB 11.7 g/dL (11.2-15.7); Immature Grans % 0.4; Lymphocytes % 11.8; MCH 24.2 pg (27.0-33.0); MCHC 29.9 % (32.0-36.0); MCV 81 fL (80-95); Monocytes % 6.2; Neutrophils % 80.2; Platelet Count 401 10^3/uL (130-400); RBC 4.83 10^6/uL (3.93-5.22); RDW 15.9 % (11.7-14.6); RDW-SD 46.3 fL; WBC 12.23 10^3/uL (4.4-10.8)
[2022-09-16] MEDS: Ondansetron 4 MG/2 ML VIAL IVP (16:52)
[2022-09-16 16:53] LABS: Absolute Eosinophil Count 0.09 10^3/uL (0.0-0.7)
[2022-09-16 17:14] LABS: ALT 12 U/L (14-59); AST 11 U/L (15-37); Albumin 3.5 g/dL (3.4-5.0); Alkaline Phosphatase 121 U/L (46-116); BUN 31 mg/dL (7-18); Bilirubin, Total 0.4 mg/dL (0.2-1.0); CREATININE 1.7 mg/dL (0.55-1.02); Chloride 102 mmol/L (98-107); Estimated GFR 29.76 (mL/min/1.73m2); Glucose 261 mg/dL (74-106); Lipase 181 U/L (16-77); Potassium 4.8 mmol/L (3.5-5.1); Sodium 137 mmol/L (136-145); Total Protein 8.6 g/dL (6.4-8.2)
--- NOTE | 2022-09-16 17:15 | DI.CT_ITS ---
Exam(s) CT ABDOMEN PELVIS WO EXAM: CT ABDOMEN PELVIS WO CLINICAL HISTORY: Abdominal pain, N/V/D. TECHNIQUE: Imaging Protocol: Axial computed tomography images with coronal and sagittal reformatted images were created and reviewed. COMPARISON: CT CT ABDOMEN PELVIS W from 05/06/2021 FINDINGS: Patient motion artifact. ABDOMEN: Lung Bases: Coronary artery calcification is present. There is a small hiatal hernia. Liver: Normal density. No measurable mass. Gallbladder and biliary tract: Cholelithiasis. No biliary ductal dilatation. Pancreas: Calcifications are again seen throughout the pancreas which can be seen with chronic pancre atitis. No peripancreatic inflammatory changes are seen. There is a stable 1.9 cm cyst in the tail of the pancreas. Spleen: Normal. Kidneys: Normal size, contour and axis.No radiodense stones or obstructive uropathy. There is a cyst again seen in the right kidney. No follow-up is recommended. Adrenal glands: No mass is seen. Lymph nodes: Within normal limits. Abdominal Aorta: Abdominal portion non-dilated. Atherosclerosis. PELVIS: Bladder:Symmetric distention, no gross wall thickening. Bowel: No obstruction or bowel wall thickening. No evidence of appendicitis. Fluid-filled loops of s mall and large bowel are present which can be seen with a diarrheal illness. Peritoneal cavity: No ascites, collection or mesenteric inflammatory response. No free air. Reproductive organs: Unremarkable as visualized. Bones: Within normal limits. There is an intramedullary shannon in the proximal left femur. Soft Tissues: Within normal limits. IMPRESSION: 1. Fluid seen in small and large bowel which can be seen with a diarrheal illness. 2. Cholelithiasis without evidence of acute cholecystitis. 3. Calcification in the pancreas suggesting chronic pancreatitis. 4. Stable cyst in the tail of the pancreas which may represent a small cystic mass or pseudocyst. RADIATION DOSE DELIVERED: 1,847.04mGy.cm Total DLP DATA REPOSITORY: All CT scans at this facility are submitted to the National Radiology Data Registry (NRDR) Dose Index Registry (DIR) with the [employer] [place] [employer] (ACR). RADIATION OPTIMIZATION: All CT scans at this facility use at least one of these dose optimization te chniques: automated exposure control; mA and/or kV adjustment per patient size (includes targeted exa ms where dose is matched to clinical indication); or iterative reconstruction.
[2022-09-16 17:18] LABS: Troponin I < 50 ng/L (<or=60)
--- NOTE | 2022-09-16 19:26 | DI.VRAD_ITS ---
PROCEDURE INFORMATION: Exam: CT Abdomen And Pelvis Without Contrast Exam date and time: 09/16/2022 6:39 PM Age: 81 years old Clinical indication: Other: Abdominal pain, n/v/d; Additional info: Abdominal pain, n/v/d PT unable to follow instructions very confused TECHNIQUE: Imaging protocol: Computed tomography of the abdomen and pelvis without contrast. Radiation optimization: All CT scans at this facility use at least one of these dose optimization techniques: automated exposure control; mA and/or kV adjustment per patient size (includes targeted exams where dose is matched to clinical indication); or iterative reconstruction. COMPARISON: CT ABDOMEN PELVIS W 05/06/2021 2:07 PM FINDINGS: Lungs: Lung bases are clear. Heart: Mild pericardial effusion. Moderate coronary artery calcification. No cardiomegaly. Diaphragm: Mild hiatal hernia. Liver: Unremarkable noncontrast liver imaging. Gallbladder and bile ducts: Large calcified stones are noted in the gallbladder. No inflammatory change. No ductal dilatation. Pancreas: Extensive dystrophic calcifications are noted throughout pancreas, similar to previous. A small low-attenuation lesion at the pancreatic tail measures 1.9 cm diameter, Hounsfield units 0, similar to previous. No acute inflammatory change. Spleen: Normal. No splenomegaly. Adrenal glands: Normal. No mass. Kidneys and ureters: Negative for hydronephrosis. Ureters are not dilated. No stones are observed. Stomach and bowel: Collapsed stomach. Moderate fluid noted throughout the small bowel and colon. Small bowel loops measure up to 3.0 cm. No significant formed stool observed in the colon. No focal inflammatory changes are observed around the colon. Appendix: No evidence of appendicitis. Intraperitoneal space: No free fluid. No free air. No abscess. Vasculature: Moderate vascular calcifications. Negative for abdominal aortic aneurysm. Lymph nodes: Unremarkable. No enlarged lymph nodes. Urinary bladder: Unremarkable as visualized. Reproductive: Unremarkable as visualized. Bones/joints: No compression fracture. Moderate multilevel facet arthropathy. Hardware noted in the proximal left femur. Soft tissues: Unremarkable. Other findings: Respiratory motion artifact. IMPRESSION: 1. Moderate fluid in the small bowel and colon. Correlate for suspected diarrheal illness. 2. No bowel obstruction. 3. No abscess. 4. Cholelithiasis, without cholecystitis. 5. Chronic pancreatitis. 6. Small pseudocyst or cystic mass at the pancreatic tail, unchanged. Dictated and Authenticated by: Jaime Gibbs MD. Ordering:MASOOD Farfan MD
[2022-09-16 19:40] LABS: Troponin I < 50 ng/L (<or=60)
[2022-09-16 19:58] VITALS: BP 121/62; PULSE 62; RESP 18; TEMP 36.9; O2SAT 99
[2022-09-16 20:42] VITALS: BP 133/77; PULSE 83; RESP 18; TEMP 36.9; O2SAT 99
--- NOTE | 2022-09-16 20:46 | NUR.NOTE ---
Nursing Note:Pt was thoroughly cleaned and depends changed secondary to bowel and urine incontinence. [facility] staff aware of pt and d/c.
--- NOTE | 2022-09-16 20:52 | NUR.NOTE ---
Nursing Note: EMS crew took pt at 2052. Pt stable and in no signs of acute distress.
[2022-09-16] MEDS: Ondansetron O.D.T. 4 MG TABEF, 3 TABS/BTL PO (20:54)
== END 2022-09-16 20:59 | disposition skilled nursing facility (03) ==
PROVIDERS: Emergency Provider Registered Nurse Emergency; PCP Family Medicine
DX: K52.9 Noninfective gastroenteritis and colitis, unspecified (principal); R11.2 Nausea with vomiting, unspecified; R19.7 Diarrhea, unspecified
CPT/HCPCS: 80053; 83690; 93005; 96361; 96374; 99284; 74176; 83735; 84484; 85025; 93010; J2405

== ENCOUNTER 2023-05-04 17:37 | Outpatient (REF) | payer MEDICARE, MEDICAID, SELFPAY ==
[2023-05-04 20:51] LABS: Hemoglobin A1C 7.9 % (<5.7)
== END 2023-05-04 17:38 | disposition home or self-care (01) ==
LOC: LBN 17:37
PROVIDERS: PCP Family Medicine; Visit Provider Nurse Practitioner Gerontology
DX: E11.65 Type 2 diabetes mellitus with hyperglycemia (principal)
CPT/HCPCS: 83036

== ENCOUNTER 2023-08-14 14:05 | Emergency (ER) | payer MEDICARE, MEDICAID, SELFPAY ==
[2023-08-14] VITALS (28 sets, daily range): BP systolic 90–166; BP diastolic 51–91; PULSE 68–92; RESP 14; TEMP 36.7; O2SAT 94–100
--- NOTE | 2023-08-14 14:25 | ED.GENADUL_ITS ---
Discharge Plan Disposition [facility]position[facility] Condition: Good Discharge Details Clinical Impression: UTI (urinary tract infection) Primary Care Provider: Yumiko Israel ED Provider: Ktoa Angela Meds and New Rx's Prescriptions: Continued insulin glargine [Lantus Solostar U-100 Insulin] 100 unit/mL (3 mL) insulin pen 24 unit subcut QAM acetaminophen 325 MG tablet 650 mg PO TID olanzapine [Zyprexa] 10 MG tablet 5 mg PO BID polyethylene glycol 3350 [Miralax] 17 gram/dose Powder 17 g PO Q OTHER DAY sennosides [Senokot] 8.6 mg Tablet 8.6 mg PO BID Qty: 60 0RF omeprazole 20 mg capsule,delayed release(DR/EC) 20 mg PO DAILY Trulicity 3 mg/0.5 mL pen injector 3 mg subcut QWEEK Discharge Instructions Additional Instructions: You were sent to the emergency department for episode of vomiting. Your workup here is reassuring. You were found to have evidence of a UTI and was treated with a single dose of fosfomycin. A urine culture is pending. Otherwise your kidney function is baseline. Your CT scan continues to show gallstones and chronic pancreatitis but is otherwise unchanged with no acute findings. Resume previous care and management. Return to ED for any chest pain, abdominal pain, persistent vomiting, other concerns. HPI General Mode of arrival: EMS . Date/Time Provider Initiated Documentation: 08/14/23 14:25 . Limitations to Documentation: other (Schizophrenia/dementia) . Information obtained by: RN/MD, EMS, RN notes reviewed and old records reviewed . HPI Narrative: Patient sent in from [facility] for evaluation of an episode of dark emesis yesterday. Patient herself is unable to provide any type of history due to her demen tia/schizoaffective disorder. Currently denies having any symptoms. Specifically denies headache, chest pain, shortness of breath, abdominal pain, nausea/vomiting. Attempts to speak with nursing at her [facility] to obtain more history resulted in leaving voicemails. Related Data Home Medications Medication Instructions Recorded Confirmed acetaminophen 325 mg tablet 650 mg PO TID 03/17/17 08/14/23 olanzapine 10 mg tablet (Zyprexa) 5 mg PO BID 03/17/17 08/14/23 polyethylene glycol 3350 17 17 g PO Q OTHER DAY 09/21/21 05/03/24 gram/dose oral powder (Miralax) sennosides 8.6 mg tablet (Senokot) 8.6 mg PO BID #60 tabs 05/13/21 08/14/23 insulin glargine 100 unit/mL (3 24 unit subcut QAM 07/30/21 08/14/23 mL) subcutaneous pen (Lantus Solostar U-100 Insulin) dulaglutide 3 mg/0.5 mL 3 mg subcut QWEEK 08/14/23 08/14/23 subcutaneous pen injector (Trulicity) omeprazole 20 mg capsule,delayed 20 mg PO DAILY 08/14/23 08/14/23 release Previous Rx's Medication Instructions Recorded sennosides 8.6 mg tablet (Senokot) 8.6 mg PO BID #60 tabs 05/13/21 Allergies Allergy/AdvReac Type Severity Reaction Status Date / Time No Known Allergies Allergy Unverified 08/14/23 15:12 General Stated Complaint: Abd Prob SHANTI: 3 Review of Systems Unobtainable due to mental condition Exam Narrative Exam Narrative: Const: WDWN elderly female in NAD. VS per triage. HEENT: NC/AT. Normal facial exam. Eyes: Normal conjunctiva and sclera. Neck: Supple. Trachea midline. Lungs: Normal respiratory effort. Lungs are clear. Cor: RRR without murmur. Good radial pulses. GI: Soft. NT/ND. No guarding or rebound. Neuro: A+O x 1. Normal speech. Cranial nerves II - XII grossly intact. No gross motor or sensory deficit. Ext: No C/C/E. Skin: Warm and dry without rash. Course Vital Signs Vital signs: Vital Signs Temperature 98.1 F 08/14/23 13:36 Pulse 86 08/14/23 13:36 Respiratory Rate 14 08/14/23 13:36 Blood Pressure 90/52 L 08/14/23 13:36 Pulse Oximetry 94 08/14/23 13:36 Temperature 98.1 F 08/14/23 13:36 Temperature Source Skin 08/14/23 13:36 Pulse 86 08/14/23 13:36 Respiratory Rate 14 08/14/23 13:36 Blood Pressure 90/52 L 08/14/23 13:36 Blood Pressure Position Sitting 08/14/23 13:36 Pulse Oximetry 94 08/14/23 13:36 Oxygen Delivery Method Room Air 08/14/23 13:36 Oxygen Flow Rate 0 08/14/23 13:36 Pain Level 0 08/14/23 13:36 Medical Decision Making Per EMS patient sent into ED for evaluation of possible bowel obstruction given an episode of dark emesis yesterday. We have been unable to reach anyone at her ECF. She has no complaints currently. She looks well and has a completely benign abdomen. She does have a prior history of GI bleed. Initial blood pressure was low but she is not tachycardic and this may be a false reading. She is not on beta-blockers. Will place IV and obtain labs, EKG, CT of the abdomen, urinalysis given inability to obtain a reliable history. Patient's EKG per my read without acute changes and essentially normal and similar to previous. Laboratory studies with a white count of 16.3. Hemoglobin just slightly lower at 11.1 with normal hematocrit. Chemistries normal except for kidney function which has been elevated previously and seems to be baseline with a creatinine of 2. CT scan was done without contrast. Her initial troponin is elevated at 160 but likely related to her renal disease given her normal EKG. However, we will repeat this. Liver function and lipase are normal. CT scan discussed with radiology. She has chronic appearance of cholelithiasis and chronic pancreatitis. There is no acute changes and no evidence of bowel obstruction. A straight cath urine does suggest UTI and given her elevated white count have treated with a dose of fosfomycin. She continues to be stable without complaint of. Eventually after multiple phone calls to her ECF nursing did call back. They had nothing to add other than she had an episode of emesis yesterday. No clear reason why she was sent in today, no collaborative history available. Patient repeat troponin is 111, lower than previous. No concern for NSTEMI at this point. Patient will be returned to ECF to resume previous medications and care plan. Medical Records Medical records reviewed: Yes I reviewed the patient's medical records. Lab Data Lab results reviewed: Yes I reviewed the patient's lab results. ECG Data Attestation: I personally reviewed and interpreted this ECG (s) as follows: Prior ECG tracings: available for review Interpretation: See EKG Quality:SDOH Health Related Social Needs: No Data to Display PFSH All Active Problems (Updated 08/14/23 @ 19:09 by Kota Angela MD) UTI (urinary tract infection) (Acute) Counseling regarding advanced care planning and goals of care (Acute) Cholelithiasis (Acute) Failure to thrive (Chronic) Anemia due to acute blood loss (Chronic) Anemia (Chronic) Medical History GI bleed Type II diabetes mellitus with complication, uncontrolled Palliative care patient Schizophrenia Dementia Surgical History LEFT HIP FRACTURE (03/17/17) S/P NAIL AND FIXATION; DR. PARIS Social History Smoking/Tobacco Use Status: Former Tobacco Use Smoking risk assessment performed?: Yes Alcohol Intake: never Drug use: Never Substance use type: does not use Housing: intermediate Additional Social history: unable to answer.
--- NOTE | 2023-08-14 14:30 | RT.EKG_ITS ---
APPROVED REPORT Exam: Resting ECG Reason for Exam: abdominal pain Patient Location: E HR:75 bpm ECG Measurements Heart Rate [address] 144 P 30 QRSd 71 QRS 3 QT 374 T 9 QTc 418 Conclusion Sinus rhythm...normal P axis, V-rate 60- 99 Normal [place] Normal Electrocardiogram There are no significant changes compared to prior EKG performed on 09/16/2022 at 16:57.
--- NOTE | 2023-08-14 14:39 | DI.CT_ITS ---
Exam(s) CT ABDOMEN PELVIS WO EXAM: CT ABDOMEN PELVIS WO CLINICAL HISTORY: abdominal pain. TECHNIQUE: Imaging Protocol: Axial computed tomography images with coronal and sagittal reformatted images were created and reviewed CONTRAST MATERIAL: Intravenous: none Oral: None COMPARISON: CT CT ABDOMEN PELVIS WO from 09/16/2022 FINDINGS: VISUALIZED LUNG BASES: No nodules nor pleural effusions evident. ABDOMEN: There is no ascites. LIVER: There are no obvious focal hepatic lesions evident of this noninfused study. GALLBLADDER/BILIARY: Multiple gallstones are again noted in the gallbladder lumen. These gallstones measure up to 2.4 cm size. The gallbladder is mildly and distended but not truly edematous and there is no pericholecystic fluid. CBD is not dilated. PANCREAS: There are extensive calcifications again noted throughout the parenchyma of the pancreas co nsistent with sequelae of chronic pancreatitis.. The previously described cystic mass at the junctio n of the pancreatic body and tail appears unchanged in size, measuring approximately 1 point 8 x 1.7 cm. Pancreatic duct is not obviously dilated. There is no peripancreatic fluid collection. No new masses in the pancreas. SPLEEN: Spleen is not enlarged. No obvious intrasplenic lesions. ADRENALS: There are no significant adrenal masses. KIDNEYS:There is a 2 cm cyst in the lateral cortex of the right kidney again noted. Another slightly smaller cyst noted lower down in the right kidney. No new focal right kidney findings. There is a small nonobstructive calculus in left kidney measuring 4 millimeters, not previously seen. There are no calculi in the nondilated left ureter. No solid renal masses. No significant focal findings in the mildly distended urinary bladder. ABDOMINAL AORTA: Abdominal aorta is heavily calcified but not enlarged. Common iliac arteries also c alcified but not enlarged. LYMPH NODES: There is no retroperitoneal nor paraaortic adenopathy. ABDOMINAL WALL: No evidence of significant anterior abdominal wall nor inguinal hernia. GI: There is no evidence of bowel obstruction, free air, nor abscess. PELVIS: LYMPH NODES: There is no intrapelvic nor inguinal adenopathy. GI: No evidence of appendicitis.There few diverticuli in the sigmoid. No evidence of diverticulitis. URINARY BLADDER: No calculi nor obvious masses evident REPRODUCTIVE: Uterus and adnexal regions are age-appropriate. No free fluid in the pelvis. OSSEOUS: There is a lag screw/hardware in the left hip. No fractures. No significant osseous lesion s. IMPRESSION: 1. Compared to the prior CT scan of 09/16/2022 there is cholelithiasis again noted with multiple larg e gallstones in the gallbladder lumen. Gallbladder is mildly distended but not obviously edematous. If clinically indicated follow-up ultrasound could be performed. The CBD is not dilated. 2. Extensive parenchymal calcification of the pancreas again noted, consistent with chronic pancreati tis. There is also again noted a stable cystic structure in the pancreas at the junction of the body and tail which may represent a cystic neoplasm or intrapancreatic pseudocyst, given the history of c hronic pancreatitis. No obvious dilatation of the pancreatic duct. No peripancreatic fluid evident. 3. No evidence of bowel obstruction, free air, nor abscess. There is no ascites. Results discussed by phone with ER physician. RADIATION DOSE DELIVERED: 951.75mGy.cm Total DLP DATA REPOSITORY: All CT scans at this facility are submitted to the National Radiology Data Registry (NRDR) Dose Index Registry (DIR) with the [employer] (A[employer]). RADIATION OPTIMIZATION: All CT scans at this facility use at least one of these dose optimization te chniques: automated exposure control; mA and/or kV adjustment per patient size (includes targeted exa ms where dose is matched to clinical indication); or iterative reconstruction.
[2023-08-14 14:59] LABS: Abs Immature Grans 0.07 10^3/uL (0.0-0.06); Absolute Eosinophil Count 0.02 10^3/uL (0.0-0.7); Absolute Monocyte Count 1.11 10^3/uL (0.1-0.8); Absolute Neutrophil Count 12.87 10^3/uL (1.2-6.7); Basophils % 0.4 %; Eosinophils % 0.1 %; HGB 11.1 g/dL (11.2-15.7); Immature Grans % 0.4 %; Lymphocytes % 13.2 %; MCH 26.6 pg (27.0-33.0); MCHC 30.8 % (32.0-36.0); MCV 86 fL (80-95); MPV 11.5 fL (8.0-11.0); Monocytes % 6.8 %; Neutrophils % 79.1 %; Platelet Count 318 10^3/uL (130-400); RBC 4.18 10^6/uL (3.93-5.22); RDW-SD 47.5 fL; WBC 16.27 10^3/uL (4.4-10.8)
[2023-08-14 15:00] LABS: Absolute Basophil Count 0.07 10^3/uL (0.0-0.2); Absolute Lymphocyte Count 2.15 10^3/uL (1.2-3.4)
[2023-08-14] MEDS: Lactated Ringers 1,000 ML 1000 ML IV (15:08)
[2023-08-14 15:16] LABS: ALT 13 U/L (14-59); AST 16 U/L (15-37); Albumin 3.3 g/dL (3.4-5.0); Alkaline Phosphatase 107 U/L (46-116); Anion Gap 8.8 mmol/L (3-11); BUN 44 mg/dL (7-18); Bilirubin, Total 0.4 mg/dL (0.2-1.0); CO2 31.2 mmol/L (21.0-32.0); Calcium 9.2 mg/dL (8.5-10.1); Chloride 98 mmol/L (98-107); Estimated GFR 24.33 (mL/min/1.73m2); Glucose 168 mg/dL (74-106); Lipase 42 U/L (16-77); Magnesium 2.2 mg/dL (1.8-2.4); Potassium 3.6 mmol/L (3.5-5.1); Sodium 138 mmol/L (136-145); Total Protein 7.6 g/dL (6.4-8.2)
[2023-08-14 15:19] LABS: Troponin I 160 ng/L (< or =60)
[2023-08-14 16:18] LABS: Bilirubin Negative (Negative); Blood Negative (Negative); Clarity Clear (Clear); Glucose Negative (Negative); Ketones Negative (Negative); Leukocyte Esterase Moderate (Negative); Nitrite Negative (Negative); Specific Gravity 1.015 (1.005-1.025); Urobilinogen 0.2 mg/dL (Up to 0.2)
[2023-08-14 16:41] LABS: Bacteria Many HPF (Negative); C & S Indicated? Yes; Casts Negative LPF (Negative); Crystals Negative HPF (Negative); Epithelial Cells Few HPF (Negative); Mucus Negative (Negative); RBC 0-2 HPF (0-2); WBC 20-50 HPF (0-5)
--- NOTE | 2023-08-14 17:18 | NUR.NOTE ---
Nursing Note: spoke with the Ashlee talley Nurses Aide, gave update on pt. Caregiver unable to give any more context as to the black emesis or pts situation prior to arrival to the hospital.
[2023-08-14] MEDS: Fosfomycin Tromethamine 3 GM PACKET PO (17:26)
[2023-08-14 19:07] LABS: Troponin I 111 ng/L (< or =60)
--- NOTE | 2023-08-17 08:22 | NUR.NOTE ---
Accessed chart to look up whether or not on antibiotic for urine culture result. Nursing Note:
== END 2023-08-14 19:41 | disposition skilled nursing facility (03) ==
PROVIDERS: Emergency Provider Emergency Medicine; PCP Family Medicine
DX: N39.0 Urinary tract infection, site not specified (principal); K80.20 Calculus of gallbladder without cholecystitis without obstruction; E11.9 Type 2 diabetes mellitus without complications; Z79.4 Long term (current) use of insulin; Z87.891 Personal history of nicotine dependence; F25.9 Schizoaffective disorder, unspecified; F03.90 Unspecified dementia, unspecified severity, without behavioral disturbance, psychotic disturbance, mood disturbance, and anxiety
CPT/HCPCS: 36415; 80053; 83690; 86850; 86900; 86901; 87077; 93005; 96360; 96361; 99285; 74176; 81003; 81015; 83735; 84484; 85025; 87086; 87186; 93010; 99284; J3490

== ENCOUNTER 2024-07-14 15:15 | Observation (INO) | payer MEDICARE, MEDICAID, SELFPAY ==
[2024-07-14] VITALS (17 sets, daily range): BP systolic 91–181; BP diastolic 38–112; PULSE 74–112; RESP 15–28; TEMP 37.1; O2SAT 96–100
--- NOTE | 2024-07-14 15:00 | RT.EKG_ITS ---
APPROVED REPORT Exam: Resting ECG Reason for Exam: Failure to Thrive Patient Location: E HR:108 bpm ECG Measurements Heart Rate 108 AXIS NM 136 P 58 QRSd 65 QRS 24 QT 331 T 77 QTc 444 Conclusion Sinus tachycardia...rate> 99
--- NOTE | 2024-07-14 15:45 | DI.RAD_ITS ---
Exam(s) XR PORTABLE CHEST AP EXAM: XR PORTABLE CHEST AP CLINICAL HISTORY: Cough. TECHNIQUE: 2D digital imaging was performed. COMPARISON: CR,XR XR CHEST 1V IN DI DEPT from 03/29/[address] ABDOMEN PELVIS WO from 08/14/2023 FINDINGS: Single AP portable view. Heart size is upper normal. The mediastinum is not widened. Lungs are clear. No infiltrates nor obvious pleural effusions. Vertical artifact over the left hemithorax noted. IMPRESSION: No acute pulmonary findings on this single AP portable view of the chest. DATA REPOSITORY: RADIATION DOSE DELIVERED:
--- NOTE | 2024-07-14 15:58 | W.ED.GENAD ---
Discharge Plan Disposition Patient Disposition: Admit to [facility] Condition: Stable Discharge Details Clinical Impression: Acute kidney injury Admit Date/Time: 07/14/24 18:20 Admit Provider: Sea Llanos Attending Provider: Sea Llanos Primary Care Provider: Yumiko Israel ED Provider: Naheed Leslie General Mode of arrival: EMS. Date/Time Provider Initiated Documentation: 07/14/24 15:27. Limitations to Documentation: altered mental status. Information obtained by: patient, EMS, RN notes reviewed and old records reviewed. HPI Narrative: 83-year-old female presents to the ER via EMS from the [facility] rehab facility for chief complaint of decreased p.o. intake over the last couple of days and 10 pound weight loss over the last month. She also has a wet hacking cough. Patient appears confused upon arrival, has word salad, does not have any complaints at this time. No obvious signs of trauma noted. She is slightly tachycardic with heart rate of 104. Does have a past medical history of insulin-dependent diabetes type 2, GERD, GI bleeds, schizophrenia and dementia. Failure to thrive, anemia, and cognitive impairment. Related Data Home Medications ?Medication ?Instructions ?Recorded ?Confirmed acetaminophen 325 mg tablet 650 mg PO TID 03/17/17 07/14/24 olanzapine 10 mg tablet (Zyprexa) 7.5 mg PO BID 03/17/17 07/14/24 polyethylene glycol 3350 17 17 g PO Q OTHER DAY 01/01/21 07/14/24 gram/dose oral powder (Miralax) sennosides 8.6 mg tablet (Senokot) 8.6 mg PO BID #60 tabs 05/13/21 07/14/24 insulin glargine 100 unit/mL (3 24 unit subcut QAM 07/30/21 07/14/24 mL) subcutaneous pen (Lantus Solostar U-100 Insulin) dulaglutide 3 mg/0.5 mL 3 mg subcut QWEEK 08/14/23 07/14/24 subcutaneous pen injector (Trulicity) omeprazole 20 mg capsule,delayed 20 mg PO DAILY 08/14/23 07/14/24 release [id number]-lmbdbbo 249 1 cap PO TID 04/03/25 04/03/25 mg(10K-37.5K-33.2K unit) capsule,delay rel scopolamine base 1 mg over 3 days 1 patch transdermal Q3D PRN 07/14/24 07/14/24 transdermal patch Previous Rx's ?Medication ?Instructions ?Recorded sennosides 8.6 mg tablet (Senokot) 8.6 mg PO BID #60 tabs 05/13/21 Allergies Allergy/AdvReac Type Severity Reaction Status Date / Time No Known Allergies Allergy Verified 07/14/24 15:34 General Stated Complaint: GenMedical SHANTI: 3 Review of Systems Narrative: limited due to patients mental status Constitutional Constitutional: Reports as per HPI and Reports poor appetite Respiratory Respiratory: Reports chest congestion and Reports cough Exam Narrative Exam Narrative: Constitutional: Patient appears confused, does have word salad.. Appears stated age. Normal body habitus. Head: Normocephalic, no trauma. Eyes: Pupils PERRL, Red reflex noted, EOM's intact. Eyelids symmetrical without lesions, discharge, or swelling. ENT: Bilateral TM's WNL, External ear normal to inspection, no mastoid TTP, swelling, or erythema, Nasal turbinates WNL, no nasal discharge. Normal dentition, Posterior pharynx WNL, no exudate. Chest: RRR, Normal S1, S2, distal pulses intact. Dry mucous membranes. Resp: Lungs diminished to auscultation bilaterally, no wheezes, rales, or rhonchi. Abdomen: Soft, non-distended, Normoactive bowel sounds all 4 quads. Musculoskeletal: Unable to assess gait, moves all 4 extremities without difficulty. Skin: No suspicious rashes or lesions. Capillary refill less than 2 sec. Neurologic: Appears confused, no focal neurodeficits noted, does have a history of dementia, alert and oriented x1 Motor: No deficits noted. Sensory: Intact bilaterally all 4 extremities. Hematologic/Lymphatic: No ecchymosis, no lymphadenopathy. Const General: cooperative and frail appearing Nutritional Appearance: average body habitus Orientation: awake and confused Course Vital Signs Vital signs: Vital Signs Temperature 37.1 C 07/14/24 15:16 Pulse 104 H 07/14/24 15:16 Respiratory Rate 20 07/14/24 15:16 Blood Pressure 106/39 L 07/14/24 15:16 Pulse Oximetry 100 04/03/25 15:16 Temperature 37.1 C 07/14/24 15:32 Temperature Source Axillary 07/14/24 15:32 Pulse 104 H 07/14/24 15:32 Respiratory Rate 20 07/14/24 15:32 Blood Pressure 106/39 L 07/14/24 15:32 Pulse Oximetry 100 07/14/24 15:32 Oxygen Delivery Method Room Air 07/14/24 15:32 Oxygen Flow Rate 0 07/14/24 15:32 Medical Decision Making 83-year-old female presents to the ER via EMS from the [facility] rehab facility for chief complaint of decreased p.o. intake over the last couple of days and 10 pound weight loss over the last month. She also has a wet hacking cough. Patient appears confused upon arrival, has word salad, does not have any complaints at this time. No obvious signs of trauma noted. She is slightly tachycardic with heart rate of 104. Does have a past medical history of insulin-dependent diabetes type 2, GERD, GI bleeds, schizophrenia and dementia. Failure to thrive, anemia, and cognitive impairment. Work up ordered including CXR, CBC, CMP, Trop, EKG done upon arrival by ED staff, Chest x-ray shows no evidence of acute abnormality no pneumonia however the left lower lobe is obscured. The patient does have a high white blood cell count at 16.72 hemoglobin low at 8.3 and 27.4 although patient has had a history of anemia. Absolute neutrophils 14.15, she is hyponatremic with a sodium of 148, potassium of 4.4 , elevated BUN up from 44 approximately year ago to 68, creatinine also elevated at 3.2 GFR is 13, magnesium is also elevated at 2.5. This could be from dehydration. Albumin is 2.7. Troponin is 21 initially, did add on a procalcitonin PT PTT and a repeat BMP after the 500 cc of normal saline. Also urinalysis is pending. Patient could have a urinary tract infection. COVID flu and RSV are negative. Repeat BMP shows sodium 149, BUN 66 creatinine 3.1 which is slightly improved. This is after 500 cc normal saline bolus. proBNP is 486. I did attempt to call patient's primary contact her brother Uri her brother but there was no answer, voicemail was left. At this time pending urinalysis. Possible UTI, acute kidney injury, and failure to thrive. Will consider admission, however on chart review, there is a note from palliative care that patient did not want to be admitted, and I would like to speak with family before doing this. 1806: Spoke with Arpita Mata who is patients guardian, Navi Grewal has , her daughter Arpita is agreeable to admission. Will call the hospitalist. Dr. Llanos hospitalist agrees to accept patient for admission. This text was generated using Firmexation system, please disregard any oddities of phrase or misspellings. Medical Records Medical records reviewed: Yes I reviewed the patient's medical records. Medical records narrative: Upon more in-depth review of medical records patient is being seen by palliative care and Dr. Staley most recent was June 2024 she recommends INJECTION MOLDING MACHINE SETTER however the family has not made that decision as of yet. After the workup I will contact with the family and possibly palliative care to determine the next steps. Lab Data Lab results reviewed: Yes I reviewed the patient's lab results. Labs: Laboratory Tests Range/Units 07/14/24 07/14/24 16:06 17:12 WBC (4.4-10.8) 10^3/uL 16.72 H RBC (3.93-5.22) 10^6/uL 3.16 L Hgb (11.2-15.7) g/dL 8.3 L Hct (36.0-46.0) % 27.4 L MCV (80-95) fL 87 MCH (27.0-33.0) pg 26.3 L MCHC (32.0-36.0) % 30.3 L RDW (11.7-14.6) % 15.2 H Plt Count (130-400) 10^3/uL 371 MPV (8.0-11.0) fL 11.8 H Immature Gran % % 0.8 Neutrophils % % 84.6 Lymphocytes % % 9.5 Monocytes % % 4.9 Eosinophils % % 0.0 Basophils % % 0.2 Nucleated RBC % (0.0-0.3) % 0.0 Absolute Neutrophils (1.2-6.7) 10^3/uL 14.15 H Absolute Lymphocytes (1.2-3.4) 10^3/uL 1.59 Absolute Monocytes (0.1-0.8) 10^3/uL 0.82 H Absolute Eosinophils (0.0-0.7) 10^3/uL 0.00 Absolute Basophils (0.0-0.2) 10^3/uL 0.03 RBC Morphology Normal Sodium (136-145) mmol/L 148 H 149 H Potassium (3.5-5.1) mmol/L 4.4 4.4 Chloride (98-107) mmol/L 111 H 113 H Carbon Dioxide (21.0-32.0) mmol/L 27.5 24.5 Anion Gap (3-11) mmol/L 9.5 11.5 H BUN (7-18) mg/dL 68 H 66 H Creatinine (0.55-1.02) mg/dL 3.2 H 3.1 H Est GFR (CKD-EPI 2020) (mL/min/1.73m2) 13.76 14.29 Glucose (74-106) mg/dL 249 H 240 H Calcium (8.5-10.1) mg/dL 9.3 8.7 Magnesium (1.8-2.4) mg/dL 2.5 H Total Bilirubin (0.2-1.0) mg/dL 0.2 AST (15-37) U/L < 5 L ALT (14-59) U/L 10 L Alkaline Phosphatase (46-116) U/L 104 Troponin I (<or=51) ng/L 21 NT-Pro-B Natriuret Pep (<300) pg/mL 486 H Total Protein (6.4-8.2) g/dL 6.3 L Albumin (3.4-5.0) g/dL 2.7 L Procalcitonin ng/mL 0.18 COVID-19 Source Nasopharynx SARS-CoV-2 (PCR) (Negative) Negative Influenza Type A (PCR) (Negative) Negative Influenza Type B (PCR) (Negative) Negative RSV (PCR) (Negative) Negative Quality:SDOH Health Related Social Needs: No Data to Display PFSH All Active Problems (Updated 07/14/24 @ 18:19 by Naheed Leslie NP) Acute kidney injury (Acute) Counseling regarding advanced care planning and goals of care (Acute) Cholelithiasis (Acute) Failure to thrive (Chronic) Anemia due to acute blood loss (Chronic) Anemia (Chronic) Medical History GI bleed Type II diabetes mellitus with complication, uncontrolled Palliative care patient Schizophrenia Dementia Surgical History LEFT HIP FRACTURE (03/17/17) S/P NAIL AND FIXATION; DR. PARIS Social History Smoking/Tobacco Use Status: Former Tobacco Use Smoking risk assessment performed?: Yes Alcohol Intake: never Drug use: Never Substance use type: does not use Housing: [facility] Additional Social history: unable to answer.
[2024-07-14 16:16] LABS: Abs Immature Grans 0.14 10^3/uL (0.0-0.06); Absolute Lymphocyte Count 1.59 10^3/uL (1.2-3.4); Absolute Monocyte Count 0.82 10^3/uL (0.1-0.8); Basophils % 0.2 %; HCT 27.4 % (36.0-46.0); HGB 8.3 g/dL (11.2-15.7); Immature Grans % 0.8 %; Lymphocytes % 9.5 %; MCH 26.3 pg (27.0-33.0); MCHC 30.3 % (32.0-36.0); MCV 87 fL (80-95); MPV 11.8 fL (8.0-11.0); Monocytes % 4.9 %; Neutrophils % 84.6 %; Platelet Count 371 10^3/uL (130-400); RBC 3.16 10^6/uL (3.93-5.22); RDW 15.2 % (11.7-14.6); RDW-SD 48.1 fL; WBC 16.72 10^3/uL (4.4-10.8)
[2024-07-14 16:26] LABS: Absolute Basophil Count 0.03 10^3/uL (0.0-0.2); Absolute Neutrophil Count 14.15 10^3/uL (1.2-6.7); Diff Comment RBC Morph Reviewed
[2024-07-14 16:27] LABS: RBC Morphology Normal
[2024-07-14] MEDS: Normal Saline 500 ML IV (16:30)
[2024-07-14 16:33] LABS: ALT 10 U/L (14-59); AST < 5 U/L (15-37); Albumin 2.7 g/dL (3.4-5.0); Alkaline Phosphatase 104 U/L (46-116); Anion Gap 9.5 mmol/L (3-11); BUN 68 mg/dL (7-18); Bilirubin, Total 0.2 mg/dL (0.2-1.0); CO2 27.5 mmol/L (21.0-32.0); CREATININE 3.2 mg/dL (0.55-1.02); Calcium 9.3 mg/dL (8.5-10.1); Chloride 111 mmol/L (98-107); Estimated GFR 13.76 (mL/min/1.73m2); Glucose 249 mg/dL (74-106); Magnesium 2.5 mg/dL (1.8-2.4); Potassium 4.4 mmol/L (3.5-5.1); Sodium 148 mmol/L (136-145); Total Protein 6.3 g/dL (6.4-8.2)
[2024-07-14 16:37] LABS: Troponin I 21 ng/L (<or=51)
[2024-07-14 16:57] LABS: COVID-19 PCR Negative (Negative); Influenza A PCR Negative (Negative); Influenza B PCR Negative (Negative); RSV PCR Negative (Negative); Source Nasopharynx
[2024-07-14 17:43] LABS: Anion Gap 11.5 mmol/L (3-11); BUN 66 mg/dL (7-18); CO2 24.5 mmol/L (21.0-32.0); CREATININE 3.1 mg/dL (0.55-1.02); Calcium 8.7 mg/dL (8.5-10.1); Chloride 113 mmol/L (98-107); Estimated GFR 14.29 (mL/min/1.73m2); Glucose 240 mg/dL (74-106); NT-proBNP 486 pg/mL (<300); Potassium 4.4 mmol/L (3.5-5.1); Sodium 149 mmol/L (136-145)
[2024-07-14 17:46] LABS: Procalcitonin 0.18 ng/mL
[2024-07-14] MEDS: Normal Saline 250 ML IV (18:15)
--- NOTE | 2024-07-14 18:20 | W.PM.HP.N ---
Date of service: 07/14/24 Time of Service: 18:21 Assessment and Plan Assessment and plan (1) Acute kidney injury: Status: Acute Assessment and plan: - Patient presented due to poor p.o. intake and failure to thrive that resulted in elevated creatinine of 3.1 (baseline 2.0) -Patient's status post fluid resuscitation of 750 mL normal saline bolus while in the emergency department -Will continue normal saline at 75 mL an hour -Follow-up a.m. BMP (2) Failure to thrive: Status: Chronic Assessment and plan: - In the setting of frontotemporal dementia and periodic poor p.o. intake -Highly recommend palliative care have repeated discussion with the patient's guardians as it has been well-documented that would likely be in the patient's best interest to transition to comfort measures only (3) Type II diabetes mellitus with complication, uncontrolled: Assessment and plan: - Diabetes medications have been discontinued by palliative care as patient's p.o. intake has been unreliable (4) Schizophrenia: Assessment and plan: - Continue home Zyprexa (5) Dementia: Assessment and plan: - Frontotemporal dementia -Continue Zyprexa as noted above History of Present Illness History of Present Illness Chief Complaint: decreased PO intake Narrative: 83-year-old female with a past medical history of frontotemporal dementia, insulin-dependent type 2 diabetes who is a resident at the [facility] and has been seen by palliative care multiple times over the last week for failure to thrive and consideration of transition to comfort measures only who presents to the emergency department with decreased p.o. intake. Patient reportedly has episodes where she will have decreased p.o. intake, most recently when seen by palliative care physician Ciarra Staley on 07/04/2024. At that time she reach out to discussed with patient's family about transitioning her to comfort measures only, however upon the following day the patient's status appeared to have improved somewhat and family was adamant about not transitioning to comfort at that time as family feels the patient often rebounds. However, since that last visit by palliative care the patient has been noted at the [facility] to have again significant decreased p.o. intake and a 10 pound weight loss over the last month. Patient was noted as having normal vital signs with the exception of heart rate of 104, blood pressure of 122/54, normal physical exam the exception of patient noted bleeding cachectic appearing, with CBC white count of 16.7, creatinine of 3.1 (most recent baseline from 08/14/2023 was 2.0). Urinalysis was ordered but is yet to be collected, and chest x-ray was without acute findings. While in the emergency department the patient was given a total of 750 mL of normal saline. Emergency room provider discussed care with patient's guardian Arpita who agreed with patient being admitted. At which time emergency room provider paged hospitalist for admission for patient with failure to thrive decreased p.o. intake resulting in BEN. Review of Systems All systems reviewed & are unremarkable except as noted in HPI and below PFSH All Active Problems (Updated 07/14/24 @ 18:19 by Naheed Leslie NP) Acute kidney injury (Acute) Counseling regarding advanced care planning and goals of care (Acute) Cholelithiasis (Acute) Failure to thrive (Chronic) Anemia due to acute blood loss (Chronic) Anemia (Chronic) Medical History GI bleed Type II diabetes mellitus with complication, uncontrolled Palliative care patient Schizophrenia Dementia Surgical History LEFT HIP FRACTURE (03/17/17) S/P NAIL AND FIXATION; DR. PARIS Social History Smoking/Tobacco Use Status: Former Tobacco Use Smoking risk assessment performed?: Yes Alcohol Intake: never Drug use: Never Substance use type: does not use Housing: alf Additional Social history: unable to answer. Meds Allergies and Home Medications Allergies Allergy/AdvReac Type Severity Reaction Status Date / Time No Known Allergies Allergy Verified 07/14/24 15:34 Home Medications ?Medication ?Instructions ?Recorded ?Confirmed ?Type acetaminophen 325 mg tablet 650 mg PO TID 03/17/17 07/14/24 History olanzapine 10 mg tablet (Zyprexa) 7.5 mg PO BID 03/17/17 07/14/24 History polyethylene glycol 3350 17 17 g PO Q OTHER DAY 01/01/21 07/14/24 History gram/dose oral powder (Miralax) sennosides 8.6 mg tablet (Senokot) 8.6 mg PO BID #60 tabs 05/13/21 07/14/24 Rx insulin glargine 100 unit/mL (3 24 unit subcut QAM 07/30/21 07/14/24 History mL) subcutaneous pen (Lantus Solostar U-100 Insulin) dulaglutide 3 mg/0.5 mL 3 mg subcut QWEEK 08/14/23 07/14/24 History subcutaneous pen injector (Trulicity) omeprazole 20 mg capsule,delayed 20 mg PO DAILY 08/14/23 07/14/24 History release jckmqy-nupxymsc-ryojfzv 249 1 cap PO TID 07/14/24 07/14/24 History mg(10K-37.5K-33.2K unit) capsule,delay rel scopolamine base 1 mg over 3 days 1 patch transdermal Q3D PRN 07/14/24 07/14/24 History transdermal patch Exam Narrative Exam Narrative: Chronically ill, frail, cachectic appearing older female laying in bed in no acute distress, fatigued but awakens to verbal stimuli, otherwise patient was minimally cooperative with exam but was able to assess that showed regular rhythm, lungs clear to auscultation bilaterally and appeared to move all 4 extremities spontaneously Results Labs 07/14/24 16:06 07/14/24 17:12 Labs: Laboratory Results - last 24 hr 07/14/24 07/14/24 07/14/24 16:06 17:12 17:49 WBC 16.72 H RBC 3.16 L Hgb 8.3 L Hct 27.4 L MCV 87 MCH 26.3 L MCHC 30.3 L RDW 15.2 H Plt Count 371 MPV 11.8 H Immature Gran % 0.8 Neutrophils % 84.6 Lymphocytes % 9.5 Monocytes % 4.9 Eosinophils % 0.0 Basophils % 0.2 Nucleated RBC % 0.0 Absolute Neutrophils 14.15 H Absolute Lymphocytes 1.59 Absolute Monocytes 0.82 H Absolute Eosinophils 0.00 Absolute Basophils 0.03 RBC Morphology Normal PT Cancelled INR Cancelled APTT Cancelled Sodium 148 H 149 H Potassium 4.4 4.4 Chloride 111 H 113 H Carbon Dioxide 27.5 24.5 Anion Gap 9.5 11.5 H BUN 68 H 66 H Creatinine 3.2 H 3.1 H Est GFR (CKD-EPI 2020) 13.76 14.29 Glucose 249 H 240 H Calcium 9.3 8.7 Magnesium 2.5 H Total Bilirubin 0.2 AST < 5 L ALT 10 L Alkaline Phosphatase 104 Troponin I 21 NT-Pro-B Natriuret Pep 486 H Total Protein 6.3 L Albumin 2.7 L Procalcitonin 0.18 COVID-19 Source Nasopharynx SARS-CoV-2 (PCR) Negative Influenza Type A (PCR) Negative Influenza Type B (PCR) Negative RSV (PCR) Negative Last Vital Signs Temp 98.7 F 07/14/24 15:32 Pulse 93 H 07/14/24 17:45 Resp 20 07/14/24 17:45 BP 101/54 L 07/14/24 17:45 Pulse Ox 96 07/14/24 15:46 Time Spent Time spent with Patient: >75 minutes Time was spent: preparing to see the patient(eg.review tests), obtaining and/or reviewing separately otained hiistory, ordering medications,tests, procedures, referring, communicating with other health foster care case manager, indepentently interpreting results, counseling the patient and care coordination
[2024-07-14 18:31] LABS: Bilirubin Negative (Negative); Blood Trace-intact (Negative); Clarity Cloudy (Clear); Glucose Negative (Negative); Ketones Negative (Negative); Leukocyte Esterase Small (Negative); Nitrite Negative (Negative); Urobilinogen 0.2 mg/dL (Up to 0.2)
[2024-07-14 18:46] LABS: INR 1.1 (0.9-1.1); PTT Activated 18.6 sec (20.6-30.2); Prothrombin Time 11.2 sec (9.1-11.1)
[2024-07-14 18:48] LABS: Bacteria Many HPF (Negative); C & S Indicated? No/Sq. Contamination; Crystals Negative HPF (Negative); Epithelial Cells Moderate HPF (Negative); Mucus Negative (Negative); Other Cells Rare Transitional (Negative); WBC >50 HPF (0-5)
--- NOTE | 2024-07-15 01:50 | W.PC.ACHO ---
Registration Status: Primary Language: Preferred Language: ED Information & Data Chief Complaint GenMedical 07/14/24 16:37 Chief Complaint GenMedical 07/14/24 16:01 Triage Note Facility staff reporting 07/14/24 15:16 reduction in oral intake over the last 2 days. 10bls of weight loss over last month. EMS concerned about wet hacking cough. Medical / Surgical History (Last Reviewed 07/14/24 @ 16:00 by Naheed Leslie NP) GI bleed Type II diabetes mellitus with complication, uncontrolled Palliative care patient Schizophrenia Dementia (Last Reviewed 07/14/24 @ 16:00 by Naheed Leslie NP) LEFT HIP FRACTURE (03/17/17) Most Recent Vital Signs Temperature 37.1 C 07/14/24 15:32 Temperature Source Axillary 07/14/24 15:32 Pulse 74 07/14/24 19:00 Pulse Rhythm Regular 07/14/24 20:02 Pulse 99 H 07/14/24 19:00 Respiratory Rate 18 07/14/24 19:00 Respiratory Effort Normal, Non-Labored 07/14/24 20:02 Respiratory Depth Normal 07/14/24 20:02 Respiratory Pattern Normal 07/14/24 20:02 Blood Pressure 129/93 H 07/14/24 19:00 Blood Pressure Mean 105 07/14/24 19:00 Pulse Oximetry 96 07/14/24 15:46 Oxygen Delivery Method Room Air 07/14/24 15:32 Oxygen Flow Rate 0 07/14/24 15:32 Comment attempted to retrieve VS, with IP ARCHITECT, pt became agitated, will attempt later 07/14/24 19:46 Allergies No Known Allergies Allergy (Verified 07/14/24 15:34) Precautions Isolation Standard precaution 07/14/24 16:37 Active Medications Generic Name Dose Route Start Last Admin Trade Name Freq PRN Reason Stop Dose Admin Acetaminophen 650 mg 07/14/24 20:00 07/14/24 23:02 Acetaminophen 325 Mg Tab PO Not Given TID ARCADIO Olanzapine 7.5 mg 07/14/24 20:00 07/14/24 23:02 Olanzapine 2.5 Mg Tab PO Not Given BID ARCADIO Sennosides 1 tab 07/14/24 20:00 07/14/24 23:03 Senna Tab PO Not Given BID ARCADIO Sodium Chloride 0 ml 07/14/24 20:00 07/14/24 21:25 Normal Saline Flush 10 Ml Syr IVP Not Given BID ARCADIO IV IV Catheter Type [Left Saline Lock Antecubital] IV Catheter Gauge [Left 20 Antecubital] Diet Orders Category Date Time Status Regular/Normal [DIET] Nutrition 07/15/24 Breakfast Active Diagnostics 07/15/24 07/14/24 07/14/24 Range/Units 05:35 18:18 18:07 WBC Pending (4.4-10.8) 10^3/uL RBC Pending (3.93-5.22) 10^6/uL Hgb Pending (11.2-15.7) g/dL Hct Pending (36.0-46.0) % MCV Pending (80-95) fL MCH Pending (27.0-33.0) pg MCHC Pending (32.0-36.0) % RDW Pending (11.7-14.6) % Plt Count Pending (130-400) 10^3/uL MPV Pending (8.0-11.0) fL Immature Gran % % Neutrophils % % Lymphocytes % % Monocytes % % Eosinophils % % Basophils % % Nucleated RBC % (0.0-0.3) % Absolute Neutrophils (1.2-6.7) 10^3/uL Absolute Lymphocytes (1.2-3.4) 10^3/uL Absolute Monocytes (0.1-0.8) 10^3/uL Absolute Eosinophils (0.0-0.7) 10^3/uL Absolute Basophils (0.0-0.2) 10^3/uL RBC Morphology PT 11.2 H INR 1.1 APTT 18.6 L Sodium Pending (136-145) mmol/L Potassium Pending (3.5-5.1) mmol/L Chloride Pending (98-107) mmol/L Carbon Dioxide Pending (21.0-32.0) mmol/L Anion Gap Pending (3-11) mmol/L BUN Pending (7-18) mg/dL Creatinine Pending (0.55-1.02) mg/dL Est GFR (CKD-EPI 2020) Pending (mL/min/1.73m2) Glucose Pending (74-106) mg/dL Calcium Pending (8.5-10.1) mg/dL Magnesium Pending (1.8-2.4) mg/dL Total Bilirubin (0.2-1.0) mg/dL AST (15-37) U/L ALT (14-59) U/L Alkaline Phosphatase (46-116) U/L Troponin I (<or=51) ng/L NT-Pro-B Natriuret Pep (<300) pg/mL Total Protein (6.4-8.2) g/dL Albumin (3.4-5.0) g/dL Procalcitonin ng/mL Urine Color Yellow (Yellow) Urine Clarity Cloudy (Clear) Urine pH 6.0 (5-8) Ur Specific [place] 1.020 (1.005-1.025) Urine Protein 30 H (Neg-Trace) mg/dL Urine Ketones Negative (Negative) mg/dL Urine Blood Trace-intact H (Negative) Urine Nitrite Negative (Negative) Urine Bilirubin Negative (Negative) Urine Urobilinogen 0.2 (Up to 0.2) mg/dL Ur Leukocyte Esterase Small H (Negative) Urine RBC 5-10 H (0-2) HPF Urine WBC >50 H (0-5) HPF Ur Epithelial Cells Moderate (Negative) HPF Urine Crystals Negative (Negative) HPF Urine Bacteria Many (Negative) HPF Urine Mucus Negative (Negative) Urine Other Rare Transitional (Negative) Ur Culture Indicated? No/Sq. Contamination Urine Glucose Negative (Negative) mg/dL COVID-19 Source SARS-CoV-2 (PCR) (Negative) Influenza Type A (PCR) (Negative) Influenza Type B (PCR) (Negative) RSV (PCR) (Negative) 07/14/24 07/14/24 07/14/24 Range/Units 17:49 17:12 16:06 WBC 16.72 H (4.4-10.8) 10^3/uL RBC 3.16 L (3.93-5.22) 10^6/uL Hgb 8.3 L (11.2-15.7) g/dL Hct 27.4 L (36.0-46.0) % MCV 87 (80-95) fL MCH 26.3 L (27.0-33.0) pg MCHC 30.3 L (32.0-36.0) % RDW 15.2 H (11.7-14.6) % Plt Count 371 (130-400) 10^3/uL MPV 11.8 H (8.0-11.0) fL Immature Gran % 0.8 % Neutrophils % 84.6 % Lymphocytes % 9.5 % Monocytes % 4.9 % Eosinophils % 0.0 % Basophils % 0.2 % Nucleated RBC % 0.0 (0.0-0.3) % Absolute Neutrophils 14.15 H (1.2-6.7) 10^3/uL Absolute Lymphocytes 1.59 (1.2-3.4) 10^3/uL Absolute Monocytes 0.82 H (0.1-0.8) 10^3/uL Absolute Eosinophils 0.00 (0.0-0.7) 10^3/uL Absolute Basophils 0.03 (0.0-0.2) 10^3/uL RBC Morphology Normal PT Cancelled INR Cancelled APTT Cancelled Sodium 149 H 148 H (136-145) mmol/L Potassium 4.4 4.4 (3.5-5.1) mmol/L Chloride 113 H 111 H (98-107) mmol/L Carbon Dioxide 24.5 27.5 (21.0-32.0) mmol/L Anion Gap 11.5 H 9.5 (3-11) mmol/L BUN 66 H 68 H (7-18) mg/dL Creatinine 3.1 H 3.2 H (0.55-1.02) mg/dL Est GFR (CKD-EPI 2020) 14.29 13.76 (mL/min/1.73m2) Glucose 240 H 249 H (74-106) mg/dL Calcium 8.7 9.3 (8.5-10.1) mg/dL Magnesium 2.5 H (1.8-2.4) mg/dL Total Bilirubin 0.2 (0.2-1.0) mg/dL AST < 5 L (15-37) U/L ALT 10 L (14-59) U/L Alkaline Phosphatase 104 (46-116) U/L Troponin I 21 (<or=51) ng/L NT-Pro-B Natriuret Pep 486 H (<300) pg/mL Total Protein 6.3 L (6.4-8.2) g/dL Albumin 2.7 L (3.4-5.0) g/dL Procalcitonin 0.18 ng/mL Urine Color (Yellow) Urine Clarity (Clear) Urine pH (5-8) Ur Specific [place] (1.005-1.025) Urine Protein (Neg-Trace) mg/dL Urine Ketones (Negative) mg/dL Urine Blood (Negative) Urine Nitrite (Negative) Urine Bilirubin (Negative) Urine Urobilinogen (Up to 0.2) mg/dL Ur Leukocyte Esterase (Negative) Urine RBC (0-2) HPF Urine WBC (0-5) HPF Ur Epithelial Cells (Negative) HPF Urine Crystals (Negative) HPF Urine Bacteria (Negative) HPF Urine Mucus (Negative) Urine Other (Negative) Ur Culture Indicated? Urine Glucose (Negative) mg/dL COVID-19 Source Nasopharynx SARS-CoV-2 (PCR) Negative (Negative) Influenza Type A (PCR) Negative (Negative) Influenza Type B (PCR) Negative (Negative) RSV (PCR) Negative (Negative) Intake and Output - 24 Hour Total 07/14/24 15:06 thru 07/14/24 22:08 Intake Total 750 Output Total 75 Balance 675 Weight 56.7 kg Intake: IV 750 Output: Urine 75 Other: Urine Color Yellow Falls Risk Assessment History of Falls No History 07/14/24 20:02 Contributing Factors Confusion,Impairments, 07/14/24 20:02 Incontinence Ambulatory Aids Uses ambulatory device + 07/14/24 15:32 Tubes/Lines None 07/14/24 15:32 Gait Evaluation W/any additional score 07/14/24 15:32 Cognition Cognitive impairment 07/14/24 15:32 Fall Total Score 9 07/14/24 20:02 Level of Risk Standard/Low Risk 07/14/24 20:02 Problems (Last Reviewed 07/14/24 @ 16:00 by Naheed Leslie NP) Acute kidney injury (Acute) Failure to thrive (Chronic) v v v v v v v v v Sending and/or Receiving Nurses: Please use comment section below to note any information pertinent to the patient hand-off not included above. Information / Comments: patient confused, alert to self. IVF bolus total of 750. chest x ray completed. resistant to care.VSS. Report received from: carlos alberto
[2024-07-15 07:19] VITALS: BP 130/73; PULSE 94; RESP 18; TEMP 36.3; O2SAT 99
--- NOTE | 2024-07-15 07:33 | NUR.NOTE ---
report received from Natty BURGOS, pt seen at bedside this AM, AxO to self only, introduced to staff, refusing most care including new PIV, lab draws and assessment. Allowed vitals which are WNL, will do assessment during turn/bed change after breakfast, will attempt AM meds with breakfast. Pending palliative consult with family to discuss possible EXECUTIVE DIRECTOR discussion. Bed low/locked, call leigh in reach, bed alarm on. Nursing Note:
--- NOTE | 2024-07-15 08:26 | PDOC.CMIN ---
Date of service: 07/15/24 Time of Service: 08:45 Care Management Initial Assmt Initial Assessment Reason for Hospitalization: Acute Kidney Injury Functional Status/Living Situation Patient Presentation: Paulette was lying in bed, her eyes are closed and she appears to be sleeping. She has dementia, resides at the [facility] and is admitted for failure to thrive. Per report, she hasn't been able to participate in meaningful conversation during this admission; therefor CM did not wake her. 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 Bijal from the [facility] called for an update, and shared with CM that Sanjana hasn't visited Paulette in several years and she is concerned that she is unaware of how her mom has been presenting. CM will continue to follow. Town of Residence: [place] Significant Other/Family: Out of area (Daughter Sanjana lives in [place], Niece Melia lives in [place].) Caregiver/Guardian: Resides at the [facility] Guardian's appointed 05/14/22: Sanjana Mata and Melia Crawfordoln Her former HCA/Guardian was her brother Navi and he is . Employment Status: Retired Instrumental Activities of Daily Living (ADLs): Independent Medications Medication Management: No Issues/Barriers identified Advance Directives Advance Directives: Do you have an Advance Directive: Y 07/24/21 09:00 AD On File at [facility]: Y 07/24/21 09:00 Date Asked 06/17/17 07/24/21 09:00 AD Date Reviewed 07/14/24 07/14/24 15:23 COLST On File at [facility] Yes 07/24/21 09:00 COLST Date Scanned 01/13/21 07/24/21 09:00 Code Status Resuscitation Status DNR/DNI Portal Pt does not currently have a portal and education provided: Yes Insurance Coverage/Financial Issues Insurance: Medicare Part A & B - [id number] Medicaid of [place] - [id number] Care Team Visit Care Team Role Provider Type Obdulio Maldonado MD [facility] STAFF PHYSICIAN Yumiko Israel Primary Care Provider MD [facility] STAFF PHYSICIAN Naheed Leslie NP Emergency Provider NURSE PRACTITIONER [place] Llanos MD Admit Provider [facility] STAFF PHYSICIAN Attending Provider Discharge Potential Discharge Needs: PCP F/U Appt Anticipated Barriers to Discharge: None Identified Patient/Family Education Needs: Review discharge instructions, discuss Ask Me Three Transportation: EMS Plan: Return to the [facility] when medically ready for discharge. Continue to follow up with community providers and her discharge plan of care as discussed. EMS will transport. CM will follow. Social Determinants of Health Screening Will the Patient Participate in the Screening?: Unable to obtain PFSH All Active Problems (Updated 07/15/24 @ 15:15 by Belia Byrne NP) Advanced care planning/counseling discussion (Acute) Acute kidney injury (Acute) Counseling regarding advanced care planning and goals of care (Acute) Cholelithiasis (Acute) Failure to thrive (Chronic) Anemia due to acute blood loss (Chronic) Anemia (Chronic) Medical History GI bleed Type II diabetes mellitus with complication, uncontrolled Palliative care patient Schizophrenia Dementia Surgical History LEFT HIP FRACTURE (03/17/17) S/P NAIL AND FIXATION; DR. PARIS Social History Smoking/Tobacco Use Status: Former Tobacco Use Smoking risk assessment performed?: Yes Alcohol Intake: never Drug use: Never Substance use type: does not use Housing: residential Additional Social history: unable to answer.
[2024-07-15] MEDS: OLANZapine 2.5 MG TAB 7.5 MG PO (08:34)
[2024-07-15] MEDS: Enoxaparin 30 MG/0.3 ML SYR SC (09:02)
[2024-07-15] MEDS: Senna TAB 1 TAB PO (09:04)
[2024-07-15] MEDS: Acetaminophen 325 MG TAB 650 MG PO (09:04)
[2024-07-15] MEDS: Omeprazole 20 MG CAPCR PO (09:06)
--- NOTE | 2024-07-15 09:29 | NUR.NOTE ---
AM care completed with patient, bed bath given, brief checked for incontinence, AM meds given, pt refusing breakfast, tolerating liquids, assessment WNL with exception to neuro defecits and congnition, MD Maldonado at bedside as well and notified of no PIV access and refusing AM lab draws, goals of care today are to get family to discuss POC goals with palliative and possibly move in direction of VP BIOLOGY due to pt refusing care. Attempted call to the [facility] to see baseline cognition and activity but no answer, will attempt later. Nursing Note:
--- NOTE | 2024-07-15 12:23 | W.PALLCONSUL ---
Date of service: 07/15/24 Time of Service: 12:23 History of Present Illness Narrative: Paulette was seen in her room at the hospital. She was alone at the time of the visit. She was unable to participate in a meaningful discussion. She was saying things like, See ya later on Ma. She did not know why she was in the hospital. She was unable to name her children. She was not eating well at the [facility], which lead to this admission. She continues to decline meals here. Staff has attempted to feed her but she refused. She has lost approximately 25# over the last 10 months. She has not been out of bed. Staff are repositioning her in bed. She has mepilex on her coccyx and heels for prevention. Her daughter, Sanjana is her guardian. Paulette has been followed closely at the [facility] for Palliative care by Dr. Staley. There have been discussions re: transitioning to PRODUCT APPLICATIONS ENGINEER. Attempted to contact Sanjana by phone to discuss possibly considering transition to PRODUCT APPLICATIONS ENGINEER and DNT, left message on voicemail. Assessment and Plan Assessment and plan (1) Acute kidney injury: Status: Acute Assessment and plan: Due to poor PO intake at the [facility]. She has had episodes of poor intake in the past. (2) Failure to thrive: Status: Chronic Assessment and plan: In the setting of frontotemporal dementia and periodic poor p.o. intake She is followed by Dr. Staley for Palliative care. There have been discussions with her daughter/guardian, Sanjana re: shift to PRODUCT APPLICATIONS ENGINEER but Sanjana has not agreed to this. (3) Type II diabetes mellitus with complication, uncontrolled: Assessment and plan: Diabetes medications were discontinued due to poor/unreliable intake . (4) Schizophrenia: Assessment and plan: On Zyprexa (5) Dementia: Assessment and plan: - Frontotemporal dementia -Continue Zyprexa as noted above (6) Advanced care planning/counseling discussion: Status: Acute Assessment and plan: Paulette is a pleasant 83 year old female with frontotemporal dementia who lives at the [facility]. She is followed by Dr. Staley for Palliative care. Her daughter, Sanjana is her guardian. She admitted to the hospital with BEN in the setting of poor PO intake due to dementia. She continues to decline meals here. Staff has attempted to feed her but she refused. She has lost approximately 25# over the last 10 months. She has not been out of bed. Staff are repositioning her in bed. She has mepilex on her coccyx and heels for prevention. She is a DNR/DNI. There have been previous discussions re: transitioning to PRODUCT APPLICATIONS ENGINEER. Attempted to contact Sanjana by phone to discuss possibly considering transition to PRODUCT APPLICATIONS ENGINEER and DNT, left message on voicemail. Palliative will continue to follow after discharge back to the [facility]. Review of Systems Narrative: unable, her speech is nonsensical. PFSH All Active Problems (Updated 07/15/24 @ 15:15 by Belia Byrne NP) Advanced care planning/counseling discussion (Acute) Acute kidney injury (Acute) Counseling regarding advanced care planning and goals of care (Acute) Cholelithiasis (Acute) Failure to thrive (Chronic) Anemia due to acute blood loss (Chronic) Anemia (Chronic) Medical History GI bleed Type II diabetes mellitus with complication, uncontrolled Palliative care patient Schizophrenia Dementia Surgical History LEFT HIP FRACTURE (03/17/17) S/P NAIL AND FIXATION; DR. PARIS Social History Smoking/Tobacco Use Status: Former Tobacco Use Smoking risk assessment performed?: Yes Alcohol Intake: never Drug use: Never Substance use type: does not use Housing: [facility] Additional Social history: unable to answer. Exam Narrative Exam Narrative: General: elderly female lying in the hospital bed with HOB elevated. She kept her eyes closed for most of the visit. She was talking but her speech was nonsensical. HEENT: atraumatic, eyes closed, mmm Neck: supple Respiratory: respirations appear even and unlabored at rest. Ext: moves all 4 extremities, no lower extremity edema. Results Last Vital Signs Temp 36.3 C L 07/15/24 07:19 Pulse 94 H 07/15/24 07:19 Resp 18 07/15/24 07:19 BP 130/73 07/15/24 07:19 Pulse Ox 99 07/15/24 07:19 Labs 07/14/24 16:06 07/14/24 17:12 Labs: Laboratory Results - last 24 hr 07/14/24 07/14/24 07/14/24 16:06 17:12 17:49 WBC 16.72 H RBC 3.16 L Hgb 8.3 L Hct 27.4 L MCV 87 MCH 26.3 L MCHC 30.3 L RDW 15.2 H Plt Count 371 MPV 11.8 H Immature Gran % 0.8 Neutrophils % 84.6 Lymphocytes % 9.5 Monocytes % 4.9 Eosinophils % 0.0 Basophils % 0.2 Nucleated RBC % 0.0 Absolute Neutrophils 14.15 H Absolute Lymphocytes 1.59 Absolute Monocytes 0.82 H Absolute Eosinophils 0.00 Absolute Basophils 0.03 RBC Morphology Normal PT Cancelled INR Cancelled APTT Cancelled Sodium 148 H 149 H Potassium 4.4 4.4 Chloride 111 H 113 H Carbon Dioxide 27.5 24.5 Anion Gap 9.5 11.5 H BUN 68 H 66 H Creatinine 3.2 H 3.1 H Est GFR (CKD-EPI 2020) 13.76 14.29 Glucose 249 H 240 H Calcium 9.3 8.7 Magnesium 2.5 H Total Bilirubin 0.2 AST < 5 L ALT 10 L Alkaline Phosphatase 104 Troponin I 21 NT-Pro-B Natriuret Pep 486 H Total Protein 6.3 L Albumin 2.7 L Procalcitonin 0.18 Urine Color Urine Clarity Urine pH Ur Specific [place] Urine Protein Urine Ketones Urine Blood Urine Nitrite Urine Bilirubin Urine Urobilinogen Ur Leukocyte Esterase Urine RBC Urine WBC Ur Epithelial Cells Urine Crystals Urine Bacteria Urine Mucus Urine Other Ur Culture Indicated? Urine Glucose COVID-19 Source Nasopharynx SARS-CoV-2 (PCR) Negative Influenza Type A (PCR) Negative Influenza Type B (PCR) Negative RSV (PCR) Negative 07/14/24 07/14/24 18:07 18:18 WBC RBC Hgb Hct MCV MCH MCHC RDW Plt Count MPV Immature Gran % Neutrophils % Lymphocytes % Monocytes % Eosinophils % Basophils % Nucleated RBC % Absolute Neutrophils Absolute Lymphocytes Absolute Monocytes Absolute Eosinophils Absolute Basophils RBC Morphology PT 11.2 H INR 1.1 APTT 18.6 L Sodium Potassium Chloride Carbon Dioxide Anion Gap BUN Creatinine Est GFR (CKD-EPI 2020) Glucose Calcium Magnesium Total Bilirubin AST ALT Alkaline Phosphatase Troponin I NT-Pro-B Natriuret Pep Total Protein Albumin Procalcitonin Urine Color Yellow Urine Clarity Cloudy Urine pH 6.0 Ur Specific [place] 1.020 Urine Protein 30 H Urine Ketones Negative Urine Blood Trace-intact H Urine Nitrite Negative Urine Bilirubin Negative Urine Urobilinogen 0.2 Ur Leukocyte Esterase Small H Urine RBC 5-10 H Urine WBC >50 H Ur Epithelial Cells Moderate Urine Crystals Negative Urine Bacteria Many Urine Mucus Negative Urine Other Rare Transitional Ur Culture Indicated? No/Sq. Contamination Urine Glucose Negative COVID-19 Source SARS-CoV-2 (PCR) Influenza Type A (PCR) Influenza Type B (PCR) RSV (PCR) Time Spent Time Spent with Patient Time Spent(min): 58
[2024-07-15 12:35] VITALS: BP 137/72; PULSE 72; RESP 16; TEMP 36.5; O2SAT 94
--- NOTE | 2024-07-15 12:56 | NUR.NOTE ---
Reviewed documentation completed by Marcel Sparks, student nurse. Iliana Mckay, MSN, RNC-OB
[2024-07-15 13:12] VITALS: BP 94/54; PULSE 91; RESP 14; TEMP 36.5; O2SAT 98
--- NOTE | 2024-07-15 15:29 | CMDISCH_ITS ---
Date of service: 07/15/24 Time of Service: 15:29 LACE Index Scoring Tool Questions: Length of Stay (in days): 1 Was the patient admitted via the E.D.?: Yes E.D. Visits: 1 Answers: Total Score: 5 Risk of Readmission: Low Risk Care Management Discharge Plan Reason for Hospitalization: Failure to Thrive Discharge Plan: Return to the [facility] via EMS. Continue to follow up with community/facility providers and her discharge plan of care as discussed. Dr. Mary gibson provided an update to her Guardian/Daughter Sanjana prior to discharge. Patient/Family Education Needs: Review discharge instructions, limitations, medications and plan to follow up after discharge. Discuss ask me three. Services Needed at Discharge: Intermediate Facility (Return to the [facility], LTC resident) and Transportation (EMS, [facility]. Coordinated by CM) [facility] Health Related Social Needs: No Data to Display
--- NOTE | 2024-07-15 15:40 | DSE_ITS ---
Date of service: 07/15/24 Time of Service: 15:40 DS: Diagnosis Discharge Diagnosis (1) Acute kidney injury: Status: Acute (2) Failure to thrive: Status: Chronic (3) Type II diabetes mellitus with complication, uncontrolled: (4) Schizophrenia: (5) Dementia: (6) Advanced care planning/counseling discussion: Status: Acute Discharge Plan Disposition [facility] Disposition[facility] Condition: Stable Discharge Details Reason For Visit: BEN, Failure to thrive Admit Date/Time: 07/14/24 18:20 Admit Provider: Sea Llanos Attending Provider: Sea Llanos Primary Care Provider: Yumiko Israel Hospital Course Hospital Course: 83-year-old female with a past medical history of frontotemporal dementia, insulin-dependent type 2 diabetes who is a resident at the [facility] and has been seen by palliative care multiple times over the last week for failure to thrive and consideration of transition to comfort measures only who presented to the emergency department with decreased p.o. intake. Her creatinine was found to be 3.2 up from 2.0 at the last check in August 2023. The patient's guardian did not want to make her E LEARNING COORDINATOR despite the recommendations of Dr. Staley who sees her at the [facility], so she was admitted for observation. Her WBC was found to be 16 but with no signs of infection on urinalysis and chest x-ray. She denied symptoms of infection on direct questioning, though dementia did limit history, and there were no focal signs on exam such as rash or abdominal pain. No fevers or diarrhea were noted. her procalcitonin was low at 0.18. Viral swabs for COVID/flu/RSV were negative. She recieved 750ml of fluids in the ED. She did drink fluids, mostly milk. She refused care frequently including medicaitons and labs/IVs. Multiple attempts were made to repeat The case was reviewed with her daughter Georgina. She was not ready to transition to E LEARNING COORDINATOR. She would like to visit first, plans to travel from [place] next month. She thought her mom was declining because her roommate and her brother recently , so she is getting less social interaction. Her sugar was in the 200s. We discussed that her trulicity helps with this but does decrease appetite. We decided to leave her on this. Her daughter also noted that she was told the patient was lactose intolerate. She drank a lot of milk here. She did not have abdominal pain or bloating. I would recommend allowing her milk products as long as significant diarrhea does not develop as a way to help keep her from getting dehydrated. As it became evident there was not an acute process occuring, she was discharged back to [facility] 07/15. Our best assessment is that this is a progression of her frontotemporal dementia and I don't think continued IV hydration is appropriate. Home Meds and New Rx's Prescriptions: Continued insulin glargine [Lantus Solostar U-100 Insulin] 100 unit/mL (3 mL) insulin pen 24 unit subcut QAM olanzapine [Zyprexa] 10 MG tablet 7.5 mg PO BID polyethylene glycol 3350 [Miralax] 17 gram/dose Powder 17 g PO Q OTHER DAY sennosides [Senokot] 8.6 mg Tablet 8.6 mg PO BID Qty: 60 0RF omeprazole 20 mg capsule,delayed release(DR/EC) 20 mg PO DAILY Trulicity 3 mg/0.5 mL pen injector 3 mg subcut QWEEK Patient Comments: takes once a week on Mondays per med list scopolamine base 1 mg over 3 days patch 3 day 1 patch transdermal Q3D PRN Creon 24,000-76,000 -120,000 unit capsule,delayed release(DR/EC) 1 cap PO QMEALS Rx Instructions: TID with meals Changed acetaminophen 325 MG tablet 650 mg PO TID PRN (Reason: Analgesia) Qty: 0 0RF Discharge Instructions Instructions: Dementia (including Alzheimer disease) Activity:: Activity as Tolerated Equipment/Supplies:: No Equipment Needed Diet:: As Tolerated Discharge Orders Discharge Orders: Discharge Order (Routine); Ordered 07/15/24 Ordered By: Obdulio Maldonado DS: Summary Time Spent with Patient providing and/or coordinating discharge services: Greater than 30 minutes Status at Discharge Functional status at discharge: bed bound Overall status at discharge: patient is back to baseline Mental Status: other (dementia, alert but not engaged) Speech and Movement: delayed speech Mood: congruent mood and other (dementia, alert but not engaged) Affect: blunted Quality:SDOH Health Related Social Needs: No Data to Display Exam Narrative Exam Narrative: General: elderly female lying in the hospital bed with HOB elevated. She kept her eyes closed for most of the visit. Speaking at times but not coherent, does say no at times to direct questions. HEENT: MMM, no rhinorrhea, no LAD Respiratory: respirations appear even and unlabored at rest, CTAB. no cough. CV: RRR, no m/g/r ABD: +bs, soft, NT/ND, no masses Ext: moves all 4 extremities, no lower extremity edema. No joint redness/swelling Skin: no rashes or open wounds neuro: moving 4 extremities, no tremor. Holds her body stiff with hands balled when attempting exam, but normal tone and cooperates with nurses when getting bathed Psych Mental Status: other (dementia, alert but not engaged) Speech and Movement: delayed speech Mood: congruent mood and other (dementia, alert but not engaged) Affect: blunted DS: Data Vitals/I&O Vitals and I&O: Vital Signs Temperature 36.5 C 07/15/24 13:12 Temperature Source Temporal Artery Scan 07/15/24 13:12 Pulse 91 H 07/15/24 13:12 Pulse Rhythm Regular 07/14/24 20:02 Pulse 99 H 07/14/24 19:00 Respiratory Rate 14 07/15/24 13:12 Respiratory Effort Normal, Non-Labored 07/14/24 20:02 Respiratory Depth Normal 07/14/24 20:02 Respiratory Pattern Normal 07/14/24 20:02 Blood Pressure 94/54 L 07/15/24 13:12 Blood Pressure Mean 105 07/14/24 19:00 Pulse Oximetry 98 07/15/24 13:12 Oxygen Delivery Method Room Air 07/15/24 13:12 Oxygen Flow Rate 0 07/15/24 13:12 Pain Level 0 07/15/24 12:35 Comment pt refusing vitals, agitated and screaming at staff to go away, will attempt later 07/15/24 11:26 Intake & Output 07/14/24 07/15/24 07/15/24 23:59 11:59 23:59 Intake Total 750 / 750 1110 / 1350 240 / 1350 Output Total 75 / 75 250 / 250 Balance 675 / 675 860 / 1100 240 / 1100 Weight 56.7 kg 56.7 kg Intake: IV 750 / 750 Oral 1110 / 1350 240 / 1350 Output: Urine 75 / 75 250 / 250 Other: Urine Color Yellow Yellow Yellow Urine Appearance Clear Urine Odor Strong None Comment pt used bedpan and was incont. pt checked, dry Data Completed and Pending Labs on day of discharge: Labs from last 24 hours 07/15/24 07/14/24 07/14/24 05:35 18:18 18:07 WBC Pending RBC Pending Hgb Pending Hct Pending MCV Pending MCH Pending MCHC Pending RDW Pending Plt Count Pending MPV Pending Immature Gran % Neutrophils % Lymphocytes % Monocytes % Eosinophils % Basophils % Nucleated RBC % Absolute Neutrophils Absolute Lymphocytes Absolute Monocytes Absolute Eosinophils Absolute Basophils RBC Morphology PT 11.2 H INR 1.1 APTT 18.6 L Sodium Pending Potassium Pending Chloride Pending Carbon Dioxide Pending Anion Gap Pending BUN Pending Creatinine Pending Est GFR (CKD-EPI 2020) Pending Glucose Pending Calcium Pending Magnesium Pending Total Bilirubin AST ALT Alkaline Phosphatase Troponin I NT-Pro-B Natriuret Pep Total Protein Albumin Procalcitonin Urine Color Yellow Urine Clarity Cloudy Urine pH 6.0 Ur Specific [place] 1.020 Urine Protein 30 H Urine Ketones Negative Urine Blood Trace-intact H Urine Nitrite Negative Urine Bilirubin Negative Urine Urobilinogen 0.2 Ur Leukocyte Esterase Small H Urine RBC 5-10 H Urine WBC >50 H Ur Epithelial Cells Moderate Urine Crystals Negative Urine Bacteria Many Urine Mucus Negative Urine Other Rare Transitional Ur Culture Indicated? No/Sq. Contamination Urine Glucose Negative COVID-19 Source SARS-CoV-2 (PCR) Influenza Type A (PCR) Influenza Type B (PCR) RSV (PCR) 07/14/24 07/14/24 07/14/24 17:49 17:12 16:06 WBC 16.72 H RBC 3.16 L Hgb 8.3 L Hct 27.4 L MCV 87 MCH 26.3 L MCHC 30.3 L RDW 15.2 H Plt Count 371 MPV 11.8 H Immature Gran % 0.8 Neutrophils % 84.6 Lymphocytes % 9.5 Monocytes % 4.9 Eosinophils % 0.0 Basophils % 0.2 Nucleated RBC % 0.0 Absolute Neutrophils 14.15 H Absolute Lymphocytes 1.59 Absolute Monocytes 0.82 H Absolute Eosinophils 0.00 Absolute Basophils 0.03 RBC Morphology Normal PT Cancelled INR Cancelled APTT Cancelled Sodium 149 H 148 H Potassium 4.4 4.4 Chloride 113 H 111 H Carbon Dioxide 24.5 27.5 Anion Gap 11.5 H 9.5 BUN 66 H 68 H Creatinine 3.1 H 3.2 H Est GFR (CKD-EPI 2020) 14.29 13.76 Glucose 240 H 249 H Calcium 8.7 9.3 Magnesium 2.5 H Total Bilirubin 0.2 AST < 5 L ALT 10 L Alkaline Phosphatase 104 Troponin I 21 NT-Pro-B Natriuret Pep 486 H Total Protein 6.3 L Albumin 2.7 L Procalcitonin 0.18 Urine Color Urine Clarity Urine pH Ur Specific [place] Urine Protein Urine Ketones Urine Blood Urine Nitrite Urine Bilirubin Urine Urobilinogen Ur Leukocyte Esterase Urine RBC Urine WBC Ur Epithelial Cells Urine Crystals Urine Bacteria Urine Mucus Urine Other Ur Culture Indicated? Urine Glucose COVID-19 Source Nasopharynx SARS-CoV-2 (PCR) Negative Influenza Type A (PCR) Negative Influenza Type B (PCR) Negative RSV (PCR) Negative PFSH All Active Problems (Updated 07/15/24 @ 15:15 by Belia Byrne NP) Advanced care planning/counseling discussion (Acute) Acute kidney injury (Acute) Counseling regarding advanced care planning and goals of care (Acute) Cholelithiasis (Acute) Failure to thrive (Chronic) Anemia due to acute blood loss (Chronic) Anemia (Chronic) Medical History GI bleed Type II diabetes mellitus with complication, uncontrolled Palliative care patient Schizophrenia Dementia Surgical History LEFT HIP FRACTURE (03/17/17) S/P NAIL AND FIXATION; DR. [place]IS Social History Smoking/Tobacco Use Status: Former Tobacco Use Smoking risk assessment performed?: Yes Alcohol Intake: never Drug use: Never Substance use type: does not use Housing: custodial Additional Social history: unable to answer. Time Spent with Patient Time Spent with Patient: 45-69 minutes Time was spent: preparing to see the patient(eg.review tests), obtaining and/or reviewing separately otained hiistory, ordering medications,tests, procedures, referring, communicating with other health animal caregiver, indepentently interpreting results, counseling the patient, care coordination and other (reviewing case with daughter)
[2024-07-15 15:54] LABS: HCT 24.8 % (36.0-46.0); HGB 7.4 g/dL (11.2-15.7); MCH 26.2 pg (27.0-33.0); MCHC 29.8 % (32.0-36.0); MCV 88 fL (80-95); MPV 11.9 fL (8.0-11.0); Platelet Count 326 10^3/uL (130-400); RBC 2.82 10^6/uL (3.93-5.22); RDW 15.2 % (11.7-14.6); RDW-SD 48.7 fL; WBC 11.67 10^3/uL (4.4-10.8)
[2024-07-15 15:55] VITALS: BP 100/50; PULSE 92; RESP 16; TEMP 36.2; O2SAT 96
[2024-07-15 16:13] LABS: Anion Gap 8.9 mmol/L (3-11); BUN 61 mg/dL (7-18); CO2 26.1 mmol/L (21.0-32.0); CREATININE 2.7 mg/dL (0.55-1.02); Calcium 9.3 mg/dL (8.5-10.1); Chloride 114 mmol/L (98-107); Estimated GFR 16.87 (mL/min/1.73m2); Glucose 223 mg/dL (74-106); Magnesium 2.5 mg/dL (1.8-2.4); Potassium 4.7 mmol/L (3.5-5.1); Sodium 149 mmol/L (136-145)
--- NOTE | 2024-07-15 16:16 | NUR.NOTE ---
attempt #1 made to call report to [facility] for transfer of this patient. Nursing Note:
[2024-07-15 16:23] LABS: Lab Add On Test DONE
--- NOTE | 2024-07-15 16:31 | NUR.NOTE ---
report called to Ilene BURGOS at the [facility], all d/c paperwork sent with EMS, pt going by stretcher and ambulance. Patient Axox1 denies pain on discharge, VSS, all belongings sent with patient. Nursing Note:
[2024-07-15 16:37] LABS: Hemoglobin A1C 8.1 % (<5.7)
--- NOTE | 2024-07-15 16:44 | CHAPLAIN ---
Paulette was in bed when I visited. She was awake but didn't respond to anything I said. She gave one-word responses to the [facility] [employer] who came in to check vital signs. According to Care Management and Palliative Care notes, Paulette lives at the [facility] and has dementia. She has been refusing to eat at the [facility], and here as well. Her daughter, who lives in [place], is her HCA and the Palliative Care INDUSTRIAL EDUCATION TEACHER left a message for her to discuss Paulette's current situation. Paulette was discharged back to the [facility] later this afternoon.
== END 2024-07-15 16:25 | disposition skilled nursing facility (03) | DRG 684 ==
LOC: ER 18:19 → MS 19:43
PROVIDERS: Admitting Provider Family Medicine; Emergency Provider Registered Nurse Emergency; PCP Family Medicine; Responsible Provider Family Medicine; Visit Provider Family Medicine
DX: N17.9 Acute kidney failure, unspecified (principal); E11.65 Type 2 diabetes mellitus with hyperglycemia; F03.90 Unspecified dementia, unspecified severity, without behavioral disturbance, psychotic disturbance, mood disturbance, and anxiety; R62.7 Adult failure to thrive; Z79.4 Long term (current) use of insulin; D64.9 Anemia, unspecified; G31.09 Other frontotemporal neurocognitive disorder; F02.80 Dementia in other diseases classified elsewhere, unspecified severity, without behavioral disturbance, psychotic disturbance, mood disturbance, and anxiety; R05.8 Other specified cough; K21.9 Gastro-esophageal reflux disease without esophagitis; F20.9 Schizophrenia, unspecified; R63.4 Abnormal weight loss; Z66 Do not resuscitate; K80.20 Calculus of gallbladder without cholecystitis without obstruction; E86.0 Dehydration; Z68.23 Body mass index [BMI] 23.0-23.9, adult
CPT/HCPCS: 00123; 36415; 51701; 80048; 80053; 84145; 85027; 87637; 93005; 96360; 96361; 96372; 99285; 71045; 81003; 81015; 83036; 83735; 83880; 84484; 85025; 85610; 85730; 93010; 99223; 99239; J1650

== ENCOUNTER 2024-07-18 18:34 | Outpatient (REF) | payer MEDICARE, MEDICAID, SELFPAY ==
[2024-07-18 19:04] LABS: Abs Immature Grans 0.08 10^3/uL (0.0-0.06); Absolute Basophil Count 0.05 10^3/uL (0.0-0.2); Absolute Eosinophil Count 0.06 10^3/uL (0.0-0.7); Absolute Lymphocyte Count 1.54 10^3/uL (1.2-3.4); Absolute Monocyte Count 0.62 10^3/uL (0.1-0.8); Absolute Neutrophil Count 7.93 10^3/uL (1.2-6.7); Basophils % 0.5 %; Eosinophils % 0.6 %; HCT 25.3 % (36.0-46.0); HGB 7.5 g/dL (11.2-15.7); Immature Grans % 0.8 %; MCH 26.1 pg (27.0-33.0); MCHC 29.6 % (32.0-36.0); MCV 88 fL (80-95); MPV 12.5 fL (8.0-11.0); Neutrophils % 77.1 %; Platelet Count 345 10^3/uL (130-400); RBC 2.87 10^6/uL (3.93-5.22); RDW-SD 47.8 fL; WBC 10.28 10^3/uL (4.4-10.8)
[2024-07-18 19:09] LABS: Anion Gap 10.7 mmol/L (3-11); BUN 44 mg/dL (7-18); CO2 25.3 mmol/L (21.0-32.0); CREATININE 2.6 mg/dL (0.55-1.02); Calcium 9.6 mg/dL (8.5-10.1); Chloride 111 mmol/L (98-107); Estimated GFR 17.65 (mL/min/1.73m2); Glucose 246 mg/dL (74-106); Potassium 4.7 mmol/L (3.5-5.1); Sodium 147 mmol/L (136-145)
== END 2024-07-18 18:35 | disposition home or self-care (01) ==
LOC: LBN 18:34
PROVIDERS: PCP Family Medicine; Visit Provider Nurse Practitioner Gerontology
DX: E11.8 Type 2 diabetes mellitus with unspecified complications (principal)
CPT/HCPCS: 80048; 85025